=== PATIENT | male | born 1935 | race Caucasian/White ===

== ENCOUNTER 2017-01-11 16:03 | Inpatient (IN) | payer MEDICARE, OTHER ==
[~2017-01-11] VITALS: Ht 162.6 cm; Wt 62.0 kg
[~2017-01-11 16:03] MED LIST: CLOP75TA4 PO; ISOS60TA PO; LISI-313 PO; SIMV20TA2 PO
[2017-01-11 19:33] LABS: ADD SCAN DIFF NO
[2017-01-11 19:40] LABS: BASOPHIL # 0.1 10^3/ul (0.0-0.1); BASOPHILS % 0.6 % (0.0-2.0); EOSINOPHILS # 0.2 10^3/ul (0.0-0.5); HEMOGLOBIN 14.3 g/dl (14.0-18.0); LYMPHOCYTES # 2.2 10^3/ul (0.8-2.9); LYMPHOCYTES % 28.3 % (15.0-51.0); MEAN CORPUSCULAR HEMOGLOBIN 33.1 pg (29.0-33.0); MEAN CORPUSCULAR HGB CONC 33.3 g/dl (32.0-37.0); MEAN CORPUSCULAR VOLUME 99.5 fl (82.0-101.0); MEAN PLATELET VOLUME 10.4 fl (7.4-10.4); MONOCYTE # 0.6 10^3/ul (0.3-0.9); MONOCYTES % 7.2 % (0.0-11.0); NEUTROPHIL # 4.8 10^3/ul (1.6-7.5); NEUTROPHILS % 60.5 % (39.0-77.0); PLATELET COUNT 274 10^3/UL (140-415); RED BLOOD COUNT 4.32 10^6/ul (4.70-6.10); RED CELL DISTRIBUTION WIDTH 13.8 % (11.5-14.5); WHITE BLOOD COUNT 7.9 10^3/ul (4.8-10.8)
--- NOTE | 2017-01-11 19:41 | ERD ---
ER Documentation Chief Complaint Date/Time DATE: 01/11/17 TIME: 19:36 Chief Complaint BACK PAIN RAD LEGS X 1 WEEK HPI Patient is a 81-year-old male with a past medical history of abdominal aortic aneurysm, hypertension who presents to the ED with bilateral leg pain and lower back pain 1 week. Patient also has weakness in his legs. Patient states that he was sent here from his provider, Dr. Law. Patient is unsure of why he was sent to the ED. He denies fever or chills. He denies upper back pain denies chest pain or cough or shortness of breath. Denies headache or dizziness. Denies neck pain or neck stiffness. Denies leg pain or leg swelling. Denies syncopal episode. ROS All systems reviewed and are negative except as per history of present illness. Medications Home Meds Reported Medications Lisinopril* (Lisinopril*) 5 Mg Tablet, 5 MG PO DAILY, TAB 11/29/14 Simvastatin (Simvastatin) 20 Mg Tablet, 20 MG PO HS, TAB 11/29/14 Isosorbide Mononitrate* (Isosorbide Mononitrate*) 60 Mg Tab.er.24h, 60 MG PO DAILY, TAB 11/29/14 Clopidogrel Bisulfate* (Clopidogrel Bisulfate*) 75 Mg Tablet, 75 MG PO DAILY, TAB 11/29/14 Allergies Allergies: Coded Allergies: No Known Drug Allergy (Verified Allergy, Unknown, 11/29/14) PMhx/Soc History of Surgery: Yes (surgery on head, heart cath in past) Anesthesia Reaction: No Hx Neurological Disorder: No Hx Respiratory Disorders: No Hx Cardiac Disorders: No Hx Psychiatric Problems: No Hx Miscellaneous Medical Probl: No Hx Alcohol Use: No Hx Substance Use: No Hx Tobacco Use: Yes (1.5 packs per week) Smoking Status: Never smoker Physical Exam Vitals Vital Signs Date Time Temp Pulse Resp B/P Pulse Ox O2 Delivery O2 Flow Rate FiO2 01/11/17 16:12 98.1 68 18 140/64 99 Physical Exam GENERAL: Well-developed, well-nourished male. Appears in no acute distress. HEAD: Normocephalic, atraumatic. EYES: Pupils are equally reactive bilaterally. EOMs grossly intact. No conjunctival erythema. ENT: Moist mucous membranes. No uvula deviation. No kissing tonsils. No exudates. NECK: Supple. No lymphadenopathy or thyromegaly. No meningismus. negative kernig. negative brudinski. LUNG: Clear to auscultation bilaterally. No rhonchi, wheezing, rales or coarse breath sounds. HEART: Regular rate and rhythm. No murmurs, rubs or gallops. ABDOMEN: No scars, ecchymosis or rashes noted. Soft, nontender, and nondistended. Positive bowel sounds in all four quadrants. No rebound tenderness , no guarding. (-) McBurneys point tenderness. No CVA tenderness. BACK: No midline tenderness. Extremities: Equal pulses bilaterally. No peripheral clubbing, cyanosis or edema. No unilateral leg swelling. NEUROLOGIC: Alert and oriented. Moving all four extremities. 5/5 strength in all extremities. Normal speech. Steady gait. SKIN: Normal color. Warm and dry. No rashes or lesions. Capillary refill < 2 seconds Result Diagram: 01/11/171916 Results 24 hrs Laboratory Tests Test 01/11/17 19:17 White Blood Count 7.910^3/ul Red Blood Count 4.3210^6/ul Hemoglobin 14.3g/dl Hematocrit 43.0% Mean Corpuscular Volume 99.5fl Mean Corpuscular Hemoglobin 33.1pg Mean Corpuscular Hemoglobin Concent 33.3g/dl Red Cell Distribution Width 13.8% Platelet Count 09906^3/UL Mean Platelet Volume 10.4fl Neutrophils % 60.5% Lymphocytes % 28.3% Monocytes % 7.2% Eosinophils % 3.0% Basophils % 0.6% Nucleated Red Blood Cells % 0.0/100WBC Neutrophils # 4.810^3/ul Lymphocytes # 2.210^3/ul Monocytes # 0.610^3/ul Eosinophils # 0.210^3/ul Basophils # 0.110^3/ul Nucleated Red Blood Cells # 0.010^3/ul Procedures/MDM ER COURSE: I kept the patient and/or family informed of laboratory and diagnostic imaging results throughout the emergency room course. MEDICAL DECISION MAKING: This is a 81-year-old male with a past medical history of hypertension, abdominal aortic aneurysm who presents with back pain that radiates down his legs 1 week and weakness. Vital signs were reviewed. Patient is afebrile. Patient is not hypoxic. I consulted with Dr. Shepherd regarding this patient who advised me to contact Dr. Law. Dr. Law was called who stated to order a CT , blood work and an ultrasound to rule out aneurysm. All imaging studies were ordered and pending. I will be transferring patient to another provider who will continue following up with patient and evaluating laboratory studies and imaging studies as well as dictating the rest of the note. Patient was stable at transfer. Departure Diagnosis: Primary Impression: Back pain Back pain location: low back pain Chronicity: unspecified Back pain laterality: unspecified Sciatica presence: unspecified whether sciatica present Qualified Code: M54.5 - Low back pain, unspecified back pain laterality, unspecified chronicity, with sciatica presence unspecified Condition: Stable FILI HOYT PA-C January 11, 2017 19:41
--- NOTE | 2017-01-11 20:02 | RADRPT ---
PROCEDURE: CT abdomen and pelvis without IV contrast. CLINICAL INDICATION: Abdominal pain TECHNIQUE: CT scan of the abdomen and pelvis without contrast was performed on the Dexetra volumetric [address] scanner. The patient was scanned without intravenous contrast. Coronal and sagittal refo rmatted images were obtained from the axial source images. The CTDI vol is 7.4 mGy and the DLP is 45 0.98 mGy-cm. COMPARISON: 11/29/2014 FINDINGS: CT abdomen: The lung bases are clear. The heart size is not enlarged and is without pericardial thickening or e ffusion. The liver is normal in size and density and is without focal mass or intrahepatic biliary dilatation . Simple hepatic cysts are again seen. The spleen is normal in size and homogeneous in density. The stomach is grossly unremarkable. The pancreas as visualized is normal. The gallbladder and biliar y tree are unremarkable and there is no evidence for common bile duct dilatation. The adrenal gland s are symmetric and normal. The kidneys are symmetrically unremarkable as well. Bilateral renal cys ts are once again seen and are fairly stable in size. No renal calculus or obstructive uropathy or m ass lesion is seen. An abdominal aortic aneurysm is once again seen with an endovascular stent once again seen in place. The abdominal aortic aneurysm is juxtarenal/infrarenal in location and measures approximately 4.4 cm in maximal diameter. There is no retroperitoneal lymphadenopathy. The humera hepatis region is c lear. The large bowel is stool-filled. Sigmoid diverticulosis is seen without evidence of diverticu litis. The small and remainder of the large bowel and mesentery, as visualized, are otherwise unrema rkable. No inflammatory changes in the periappendiceal region is seen. CT pelvis: The pelvic organs are normal. The pelvic sidewalls and inguinal regions are clear. No pelvic mass, lymphadenopathy, or free fluid is seen. No acute inflammation is seen. The urinary bladder is wit hin normal limits. Degenerative spondylosis of the lumbar spine is seen. No osteolytic or osteoblastic lesion is detec baylee. Bilateral common iliac artery aneurysms are once again seen with endovascular stent once again seen in place. Embolization coils are seen once again. The right common iliac artery aneurysm feliciano ures approximately 7.3 cm in maximal diameter and the left common iliac artery aneurysm measures enriqueta roximately 6.5 cm in maximal diameter. Common iliac artery aneurysms of increase in size compared t o the prior examination. A bypass graft is seen between the bilateral common femoral arteries is se en which is new. IMPRESSION: 1. Increase in size of the aortic and bilateral common iliac artery aneurysms with endovascular allyson nt in place. 2. Stool filled large bowel with sigmoid diverticulosis again seen. RPTAT: HPNM Physician Hanna Date Time Electronically viewed and signed by Raza Cesar Physician on 01/11/2017 20:01 /
--- NOTE | 2017-01-11 20:10 | RADRPT ---
PROCEDURE: Abdominal aortic ultrasound CLINICAL INDICATION: Abdominal pain. History of aneurysm. TECHNIQUE: Multiple transverse and longitudinal zuniga scale and color Doppler images of the abdomin al aorta were obtained. COMPARISON: None FINDINGS: The proximal abdominal aorta is not well visualized secondary to overlying bowel gas. An endovascul ar stent in the abdominal aorta is seen. An abdominal aortic aneurysm is seen measuring 8.7 x 6.4 x 7.2 cm in size. The aneurysm sac extends into the right common iliac artery. IMPRESSION: Large abdominal aortic aneurysm as detailed above which extends into the right common iliac artery w ith an endovascular stent in place. Please refer to the CT of the abdomen and pelvis report from for further details. RPTAT: HPNM Physician Hanna Date Time Electronically viewed and signed by Physician Hanna on 01/11/2017 20:10 /
[2017-01-11 20:29] LABS: ALBUMIN/GLOBULIN RATIO 1.58
[2017-01-11] MEDS ORDERED: ACETAMINOPHEN 325 MG TAB PO PRN (20:30)
[2017-01-11] MEDS ORDERED: ONDANSETRON 4 MG INJ IV PRN (20:30)
[2017-01-11 20:31] LABS: ALBUMIN 4.9 g/dl (3.3-4.9); BILIRUBIN,INDIRECT 0.4 mg/dl (0-1.1); BILIRUBIN,TOTAL 0.4 mg/dl (0.2-1.3); CALCIUM 9.5 mg/dl (8.4-10.2); POTASSIUM 3.8 mmol/L (3.5-5.1)
[2017-01-11 21:14] VITALS: TEMP 98.8
[2017-01-11 22:40] VITALS: BP 155/76; PULSE 64; RESP 18; Ht 162.6 cm; Wt 62.0 kg
[2017-01-12] MEDS ORDERED: BISACODYL (EC) 5 MG TAB PO PRN (00:30)
[2017-01-12 04:57] LABS: ADD SCAN DIFF NO
[2017-01-12 05:03] LABS: BASOPHIL # 0.1 10^3/ul (0.0-0.1); BASOPHILS % 0.6 % (0.0-2.0); EOSINOPHILS # 0.3 10^3/ul (0.0-0.5); EOSINOPHILS % 3.4 % (0.0-7.0); HEMATOCRIT 40.3 % (42.0-52.0); HEMOGLOBIN 13.2 g/dl (14.0-18.0); LYMPHOCYTES # 2.3 10^3/ul (0.8-2.9); LYMPHOCYTES % 27.3 % (15.0-51.0); MEAN CORPUSCULAR HEMOGLOBIN 32.3 pg (29.0-33.0); MEAN CORPUSCULAR HGB CONC 32.8 g/dl (32.0-37.0); MEAN CORPUSCULAR VOLUME 98.5 fl (82.0-101.0); MEAN PLATELET VOLUME 10.7 fl (7.4-10.4); MONOCYTE # 0.6 10^3/ul (0.3-0.9); MONOCYTES % 7.2 % (0.0-11.0); NEUTROPHIL # 5.2 10^3/ul (1.6-7.5); NEUTROPHILS % 61.4 % (39.0-77.0); PLATELET COUNT 236 10^3/UL (140-415); RED BLOOD COUNT 4.09 10^6/ul (4.70-6.10); RED CELL DISTRIBUTION WIDTH 13.9 % (11.5-14.5); WHITE BLOOD COUNT 8.4 10^3/ul (4.8-10.8)
[2017-01-12] MEDS: PANTOPRAZOLE (EC) 40 MG TAB PO SCH (05:17)
--- NOTE | 2017-01-12 05:46 | RADRPT ---
PROCEDURE: CT Lumbar Spine. CLINICAL INDICATION: Low back pain. TECHNIQUE: The study was performed on a GE [address] scanner. Spiral axial images were obtained through the lumbar spine. Sagittal and coronal reformations were created from the ra w axial data. The images were reviewed on a PACS workstation. The CTDI vol is 10.51 mGy an the DLP i s 349.02 mGy-cm. COMPARISON: No prior studies are available for comparison. FINDINGS: Trace anterolisthesis at L4-5 is seen. The remainder of the lumbar lordosis is maintain. The verte bral body heights are normal. Multilevel endplate osteophytosis is seen. No acute fracture or sublu xation is seen. Diffuse osteopenia is seen. The paravertebral soft tissues are unremarkable. T12-L1: The disc, central canal, and neuroforamina are unremarkable. L1-L2: Mild disk height loss is seen with vacuum disk phenomena. Mild bulging of the posterior juliet shelby is seen. Mild bilateral facet arthropathy is seen. Borderline narrowing of the central canal i s seen. Mild bilateral foraminal stenosis is seen. L2-L3: Mild posterior disk height loss is seen. Mild posterior disk bulge is seen. Moderate bilate ral facet arthropathy is seen with ligamentum flavum thickening. Mild central canal stenosis is see n. Mild to moderate bilateral foraminal stenosis is seen. L3-L4: Severe disk height loss is seen. Mild to moderate bilateral facet arthropathy is seen. No s ignificant disk bulge or central canal or foraminal stenosis is seen. L4-L5: Severe bilateral facet arthropathy is seen. Ligamentum flavum thickening is seen with narrow ing of the lateral recesses. Borderline narrowing of the central canal is seen. Mild to moderate b ilateral foraminal stenosis is seen. L5-S1: Moderate disk height loss is seen. Posterior disk osteophyte complex is seen. Moderate bila teral facet arthropathy is seen. No significant central canal stenosis is seen. Moderate bilateral foraminal stenosis is seen. An aortic aneurysm is seen with an endovascular stent in place. In addition, aneurysmal dilatation of the bilateral common iliac arteries is seen with continuation of endovascular stent. The abdomina l aortic aneurysm measures approximately 4.4 cm in maximal diameter. The right common iliac artery aneurysm is incompletely visualized and measures approximately 7 cm in maximal diameter. The left c ommon iliac artery aneurysm is incompletely visualized and measures 6.9 cm in maximal diameter. IMPRESSION: 1. 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 2. Trace anterolisthesis at L4-5 which may be secondary to severe facet arthropathy. 3. Aortoiliac aneurysms with an endovascular stent in place as described above. RPTAT: HPNM Physician Hanna Date Time Electronically viewed and signed by Raza Cesar Physician on 01/11/2017 19:43 /
[2017-01-12 05:53] LABS: ALBUMIN 4.2 g/dl (3.3-4.9)
[2017-01-12 05:54] LABS: POTASSIUM 4.1 mmol/L (3.5-5.1)
[2017-01-12 05:56] LABS: ALBUMIN/GLOBULIN RATIO 1.61; BILIRUBIN,INDIRECT 0.4 mg/dl (0-1.1); BILIRUBIN,TOTAL 0.4 mg/dl (0.2-1.3); CREATININE 0.84 mg/dl (0.61-1.24); TOTAL PROTEIN 6.8 g/dl (6.1-8.1)
[2017-01-12 05:57] LABS: CALCIUM 8.7 mg/dl (8.4-10.2)
[2017-01-12 07:29] VITALS: BP 142/68; RESP 19
[2017-01-12] MEDS: NICOTINE (14 MG/24 HR) PATCH TRANSDERM SCH (09:22)
[2017-01-12] MEDS: morphine 2 MG INJ IV PRN ×2 (09:30→14:36)
[2017-01-12] MEDS: ASPIRIN (EC) 81 MG TAB PO SCH (14:33)
[2017-01-12] MEDS: CLOPIDOGREL 75 MG TAB PO SCH (14:33)
[2017-01-12] MEDS: LISINOPRIL 5 MG TAB PO SCH (14:33)
[2017-01-12] MEDS: ISOSORBIDE MONONITRATE(SR)60 MG TAB PO SCH (14:34)
[2017-01-12] MEDS: ACETAMINOPHEN 325 MG TAB PO PRN (16:54)
[2017-01-12] MEDS ORDERED: ONDANSETRON 4 MG INJ IV PRN (18:20)
[2017-01-12 19:39] VITALS: BP 152/72; RESP 19
--- NOTE | 2017-01-12 20:20 | QN ---
Documentation Comment A/P HB AAA S/P REPAIR HTN WEAKNESS DJD PLAN PER ORDER NARCISO REN MD January 12, 2017 20:20
[2017-01-12] MEDS: ATORVASTATIN 20 MG TAB PO SCH (20:36)
--- NOTE | 2017-01-12 22:26 | QN ---
Documentation Comment [id number] NARCISO REN MD January 12, 2017 22:25
--- NOTE | 2017-01-12 23:15 | HP ---
DATE OF ADMISSION: 01/11/2017 HISTORY OF PRESENT ILLNESS: Sarkis Iglesias is a 81-year-old male who has a history of CAD, history of coronary angiogram, PTCA and stent placement. The patient also has a history of abdominal aortic aneurysm repair, history of CAD, history of PTCA, history of stenting, history of hypertension, history of dyslipidemia. The patient also has history of fem-fem bypass as per old record. The patient has been complaining of back pain, also complaining of lower extremity weakness and pain and patient not able to ambulate properly. The patient also has history of peripheral vascular disease, history of scalp abscess and I and D in the past. The patient's blood pressure 152/72. The patient's hematocrit 40.3. Sodium 145, repeat one 144, and the patient had the ultrasound. Aortic ultrasound shows large abdominal aortic aneurysm. Proximal abdominal aorta is not well visualized secondary to overlying gas. Endovascular stent in the abdominal aorta seen. Abdominal aortic aneurysm is seen measuring 8.7 x _ x 7.2 cm in size, aneurysm extension to the right common iliac artery, large abdominal aortic aneurysm which extends into the right common iliac artery with endovascular stent in place. The patient also had abdominopelvic CT scan, shows increase in size of the aorta and the bilateral common iliac artery aneurysm with endovascular stent in place, stool- filled large bowel with sigmoid diverticulosis. The patient had lumbar spine x- ray, shows multilevel degenerative spondylosis of the lumbar spine, trace anterolisthesis at L4-L5 which may be secondary to severe facet arthropathy, aortoiliac aneurysm with an endovascular stent in place. The patient is being admitted for further management. PAST MEDICAL HISTORY: As mentioned above, CAD, PTCA, stenting, history of scalp abscess and I and D, history of abdominal aortic aneurysm, endovascular stent and repair and history of iliac artery aneurysm and repair in the past. ALLERGY HISTORY: NEGATIVE. FAMILY HISTORY: Negative. SOCIAL HISTORY: Negative. MEDICATION HISTORY: The patient's medication history listed as: 1. Plavix. 2. Isosorbide. 3. Lisinopril. 4. Simvastatin. Currently the patient is on: 1. Aspirin. 2. Lipitor. 3. Bisacodyl. 4. Plavix. 5. Isosorbide. 6. Lisinopril. REVIEW OF SYSTEMS: HEENT: Unremarkable. RESPIRATORY: Unremarkable. CARDIOVASCULAR: Unremarkable. ABDOMEN: Denies abdominal pain. EXTREMITIES: Complaining of back pain and lower extremity weakness. CENTRAL NERVOUS SYSTEM: Unremarkable. PHYSICAL EXAMINATION: GENERAL: The patient is awake and alert. VITAL SIGNS: Pulse of 55, blood pressure of 152/72. HEENT: Head is atraumatic, normocephalic. Pupils equal, reactive to light. NECK: Supple. No JVD. LUNGS: Clear. CARDIOVASCULAR: S1, S2 are normal. ABDOMEN: Soft, nontender. Bowel sounds present. No palpable mass. EXTREMITIES: No cyanosis, clubbing or edema. CENTRAL NERVOUS SYSTEM: The patient awake, alert. No focal deficit. VASCULAR: The patient's pulse in both lower extremities are palpable. IMPRESSION: 1. The patient has lower extremity weakness and back pain. 2. Rule out vascular insufficiency. 3. Hypertension. 4. History of coronary artery disease. 5. History of percutaneous transluminal coronary angioplasty with stent placement. 6. History of abdominal aortic aneurysm, endovascular stent. 7. 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 PLAN: Continue current treatment for now. Vascular surgical consultation will be obtained. Orders were done. The patient will have laboratory data followed very closely and pain medicine as needed. Dictated By: NARCISO DUNN/URI Conf#: [id number] DID#: [id number] MTDD
[2017-01-13] MEDS: PANTOPRAZOLE (EC) 40 MG TAB PO SCH (05:48)
[2017-01-13 06:21] LABS: ADD SCAN DIFF NO
[2017-01-13 06:24] LABS: BASOPHILS % 0.4 % (0.0-2.0); EOSINOPHILS # 0.2 10^3/ul (0.0-0.5); EOSINOPHILS % 1.8 % (0.0-7.0); HEMATOCRIT 40.5 % (42.0-52.0); HEMOGLOBIN 13.5 g/dl (14.0-18.0); LYMPHOCYTES # 2.1 10^3/ul (0.8-2.9); LYMPHOCYTES % 22.4 % (15.0-51.0); MEAN CORPUSCULAR HEMOGLOBIN 32.5 pg (29.0-33.0); MEAN CORPUSCULAR HGB CONC 33.3 g/dl (32.0-37.0); MEAN CORPUSCULAR VOLUME 97.4 fl (82.0-101.0); MEAN PLATELET VOLUME 10.6 fl (7.4-10.4); MONOCYTE # 0.7 10^3/ul (0.3-0.9); MONOCYTES % 7.4 % (0.0-11.0); NEUTROPHIL # 6.3 10^3/ul (1.6-7.5); NEUTROPHILS % 67.7 % (39.0-77.0); PLATELET COUNT 242 10^3/UL (140-415); RED BLOOD COUNT 4.16 10^6/ul (4.70-6.10); RED CELL DISTRIBUTION WIDTH 13.6 % (11.5-14.5); WHITE BLOOD COUNT 9.4 10^3/ul (4.8-10.8)
[2017-01-13 06:42] LABS: ALBUMIN 4.3 g/dl (3.3-4.9); ALBUMIN/GLOBULIN RATIO 1.72; BILIRUBIN,INDIRECT 0.7 mg/dl (0-1.1); BILIRUBIN,TOTAL 0.7 mg/dl (0.2-1.3); CALCIUM 8.8 mg/dl (8.4-10.2); CREATININE 0.77 mg/dl (0.61-1.24); POTASSIUM 3.9 mmol/L (3.5-5.1); TOTAL PROTEIN 6.8 g/dl (6.1-8.1)
[2017-01-13 07:50] VITALS: BP 141/69; RESP 18
[2017-01-13] MEDS ORDERED: LISINOPRIL 5 MG TAB PO SCH (09:00)
[2017-01-13] MEDS ORDERED: ISOSORBIDE MONONITRATE(SR)60 MG TAB PO SCH (09:00)
[2017-01-13] MEDS ORDERED: CLOPIDOGREL 75 MG TAB PO SCH (09:00)
[2017-01-13] MEDS: ASPIRIN (EC) 81 MG TAB PO SCH (09:12)
[2017-01-13] MEDS: CLOPIDOGREL 75 MG TAB PO SCH (09:12)
[2017-01-13] MEDS: ISOSORBIDE MONONITRATE(SR)60 MG TAB PO SCH (09:13)
[2017-01-13] MEDS: LISINOPRIL 5 MG TAB PO SCH (09:13)
[2017-01-13] MEDS: NICOTINE (14 MG/24 HR) PATCH TRANSDERM SCH (09:13)
[2017-01-13] MEDS ORDERED: BARIUM SULF 2% 450 ML BTL (BERRY SMOOTHIE) PO ONE (14:00)
--- NOTE | 2017-01-13 14:30 | CONS ---
DATE OF ADMISSION: 01/13/2017 DATE OF CONSULTATION: 01/13/2017 REASON FOR CONSULTATION: Abdominal aortic aneurysm. HISTORY OF PRESENT ILLNESS: This is a 81-year-old male with a history of coronary artery disease, s tatus post PTCA and stent. The patient does have a history of abdominal aortic aneurysm. Part of h is workup included a CAT scan of the abdomen and pelvis, which has shown an abdominal aortic aneurys m which is juxtarenal and infrarenal in location, measures about 4.4 cm in maximal diameter. The pa tient also had bilateral iliac artery aneurysms with an endovascular stent in place. Embolization c oils are also in place. The right common iliac artery aneurysm is 7.3, left one is 6.5 cm in diamet er, and the right common iliac artery aneurysm has increased in size. There is also bypass graft be tween the bilateral common femoral arteries. PAST MEDICAL HISTORY: Hypertension, hyperlipidemia. MEDICATIONS: 1. Simvastatin. 2. Lisinopril. 3. Isosorbide. 4. Plavix. 5. Lipitor. REVIEW OF SYSTEMS: No upper or lower GI bleeding, nausea, vomiting, constipation, diarrhea. No hem aturia or dysuria. No skin changes, rashes, moles. Positive for headaches. No weight loss, weight gain. No visual loss, hearing loss. PHYSICAL EXAMINATION: GENERAL: The patient is awake and alert. Granddaughter is at the bedside. VITAL SIGNS: Blood pressure is 141/69, pulse is 54, respirations 18, temperature is 97.6. The maykel ent is on room air saturation is 91% to 99%. HEENT: Normocephalic, atraumatic. PERRLA. NECK: Supple. No JVD, no carotid bruits. CARDIOVASCULAR: Regular rate and rhythm. Normal S1, S2. LUNGS: Clear. ABDOMEN: Soft. EXTREMITIES: Warm. No clubbing, cyanosis, or edema. Palpable femoral pulses. LABORATORY VALUES: Significant for a hemoglobin of 13.5, white count 9.4, platelet count 242, and a creatinine of 0.77. IMPRESSION: 1. Abdominal aortic aneurysm, status post endovascular graft. 2. Bilateral iliac artery aneurysms. RECOMMENDATIONS: CAT scan was done without IV contrast. We will proceed with a CAT scan with IV co ntrast to fully delineate the extent of the aneurysm and possibility of a leak. Discussed with Dr. Law. Dictated By: RAJINDER HOYT/URI Conf#: [id number] DID#: [id number]
[2017-01-13] MEDS ORDERED: SOD CHLORIDE 0.9% 100 ML ONE (15:03)
[2017-01-13] MEDS ORDERED: IODIXANOL LOCM 100 ML BTL ONE (15:03)
--- NOTE | 2017-01-13 15:48 | RADRPT ---
PROCEDURE: CT angiogram of the abdomen and pelvis with 3-D reconstructions CLINICAL INDICATION: AAA TECHNIQUE: CT angiogram of the abdomen and pelvis was performed on a multislice CT scanner . The patient was scanned after administration of intravenous contrast. Sagittal and coronal reformatted images were obtained from the axial source images. 3D MIP reformatted images were also created from the axial source images. DLP 472.17 mGycm CTDI vol 8.37 mGy COMPARISON: CT abdomen/pelvis from 01/11/2017 FINDINGS: ANGIOGRAM FINDINGS: There is no acute dissection of the abdominal aorta. 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 The SMA is widely patent. There is a replaced right hepatic artery off the SMA. There are single renal arteries bilaterally which are widely patent. The abdominal aorta is markedly tortuous. There is aneurysmal dilatation of the infrarenal aorta wh ich measures up to 4.2 cm in diameter with a center line measurement. An aortobi-iliac stent graft is noted with proximal fixation below the level of the renal arteries and distal fixation in the dis emerita right common iliac artery in the proximal left common iliac artery. A type 1 endoleak is noted w ith contrast opacification around the proximal aspect of the stent graft posteriorly. Large aneurysms spanning the length of bilateral common iliac arteries are noted measuring up to 7.2 cm on the right and 6.3 cm on the left. The right limb of the stent graft spans the right common i liac artery aneurysm. The left limb of the stent graft which terminates in the proximal left common iliac artery is occluded. A second stent is noted which begins within the aneurysm at the level of the mid left common iliac artery and extends to the distal left common iliac artery. It is also oc cluded. Coils are noted in bilateral internal iliac arteries which are occluded. There is no eviden ce of an endoleak in bilateral common iliac artery aneurysm sacs. The right external iliac artery and right common femoral artery are widely patent. The proximal rig ht superficial femoral and profunda arteries are widely patent. There is a fem-fem bypass graft whi ch is widely patent and reestablish as flow in the left common femoral artery. The proximal left beltran perficial femoral and profunda arteries are widely patent. ANCILLARY FINDINGS: There is partially visualized at least moderate cardiomegaly. There are hypoechoic and likely cystic lesions in the liver measuring up to 1.4 cm in the left lobe and 1.2 cm in the right lobe. There are simple bilateral renal cysts measuring up to 1.0 cm on the right and 1.9 cm on the left. There are scattered colonic diverticula without evidence of diverticulitis. The prostate is prominent, measuring up to 5.5 cm in diameter. IMPRESSION: 4.2 cm infrarenal aortic aneurysm status post aortobi-iliac stent graft repair with a type 1 endolea k noted superiorly. Large bilateral common iliac artery aneurysms are again noted measuring up to 7.2 cm on the right an d 6.3 cm on the left. The left distal limb of the stent graft in the proximal left common iliac art gianna is occluded and a second stent in the mid to distal left common iliac artery is also occluded. Patent fem-fem bypass graft which reestablishes flow in the left common femoral artery. 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 Prominent prostate measuring up to 5.5 cm in diameter. Correlation with a PSA level and digital rec emerita exam is recommended. RPTAT: EE Physician Farrukh Date Time Electronically viewed and signed by Physician Farrukh on 01/13/2017 15:48 /
--- NOTE | 2017-01-13 19:31 | PN ---
Date/Time of Note Date/Time of Note DATE: 01/13/17 TIME: 19:30 Assessment/Plan VTE Prophylaxis VTE Prophylaxis Intervention: other Lines/Catheters IV Catheter Type (from [facility]): Saline Lock Assessment/Plan Chief Complaint/Hosp Course IMPRESSION: 1. The patient has lower extremity weakness and back pain. 2. Rule out vascular insufficiency. 3. Hypertension. 4. History of coronary artery disease. 5. History of percutaneous transluminal coronary angioplasty with stent placement. 6. History of abdominal aortic aneurysm, endovascular stent. 7. 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 plan per surgery and dr martinez to see called Problems: Subjective 24 Hr Interval Summary Subjective hx not possible: pt critical (pain+), other (no cp) Cardiovascular: no complaints Gastrointestinal: no complaints Exam/Review of Systems Vital Signs Vitals Vital Signs Date Time Temp Pulse Resp B/P Pulse Ox O2 Delivery O2 Flow Rate FiO2 01/13/17 07:50 97.6 54 18 141/69 91 01/11/17 22:40 Room Air Intake and Output 01/12/17 01/12/17 01/13/17 15:00 23:00 07:00 Intake Total 800 ml 700 ml Balance 800 ml 700 ml Exam Neck: supple Respiratory: clear to auscultation Cardiovascular: regular rate and rhythm Gastrointestinal: soft Musculoskeletal: nl extremities to inspection Extremities: normal pulses Results Result Diagram: 01/13/17 0547 01/13/17 0547 Results 24 hrs Laboratory Tests Test 01/13/17 05:47 White Blood Count 9.4 Red Blood Count 4.16 L Hemoglobin 13.5 L Hematocrit 40.5 L Mean Corpuscular Volume 97.4 Mean Corpuscular Hemoglobin 32.5 Mean Corpuscular Hemoglobin Concent 33.3 Red Cell Distribution Width 13.6 Platelet Count 242 Mean Platelet Volume 10.6 H Neutrophils % 67.7 Lymphocytes % 22.4 Monocytes % 7.4 Eosinophils % 1.8 Basophils % 0.4 Nucleated Red Blood Cells % 0.0 Neutrophils # 6.3 Lymphocytes # 2.1 Monocytes # 0.7 Eosinophils # 0.2 Basophils # 0.0 Nucleated Red Blood Cells # 0.0 Sodium Level 140 Potassium Level 3.9 Chloride Level 110 Carbon Dioxide Level 28 Anion Gap 6 L Blood Urea Nitrogen 15 Creatinine 0.77 Glucose Level 92 Calcium Level 8.8 Total Bilirubin 0.7 Direct Bilirubin 0.00 Indirect Bilirubin 0.7 Aspartate Amino Transf (AST/SGOT) 26 Alanine Aminotransferase (ALT/SGPT) 27 Alkaline Phosphatase 89 Total Protein 6.8 Albumin 4.3 Globulin 2.50 Albumin/Globulin Ratio 1.72 Medications Medications Current Medications Pantoprazole (Protonix Tab) 40 mg DAILY@06 PO Last administered on 01/13/17 05: 48; Admin Dose 40 MG; Start 01/12/17 at 06:00 Bisacodyl (Dulcolax) 10 mg DAILY PRN PO CONSTIPATION; Start 01/12/17 at 00:30 Acetaminophen (Tylenol Tab) 650 mg Q6H PRN PO PAIN AND OR ELEVATED TEMP Last administered on 01/12/17 16:54; Admin Dose 650 MG; Start 01/12/17 at 00:30 Morphine Sulfate (morphine) 2 mg Q4H PRN IV PAIN 7-05/24 Last administered on 14:36; Admin Dose 2 MG; Start 01/12/17 at 00:30 Nicotine (Nicoderm 14 Mg/ 24hr) 1 patch DAILY TRANSDERM Last administered on 09:13; Admin Dose 1 PATCH; Start 01/12/17 at 09:00 Aspirin (Halfprin) 81 mg DAILY PO Last administered on 01/13/17 09:12; Admin Dose 81 MG; Start 01/12/17 at 14:00 Isosorbide Mononitrate (Imdur) 60 mg DAILY PO Last administered on 01/13/17 09: 13; Admin Dose 60 MG; Start 01/12/17 at 14:00 Clopidogrel Bisulfate (plaVIX) 75 mg DAILY PO Last administered on 01/13/17 09: 12; Admin Dose 75 MG; Start 01/12/17 at 14:00 Lisinopril (Zestril) 5 mg DAILY PO Last administered on 01/13/17 09:13; Admin Dose 5 MG; Start 01/12/17 at 14:00 Atorvastatin Calcium (Lipitor) 20 mg HS PO Last administered on 01/12/17 20:36 ; Admin Dose 20 MG; Start 01/12/17 at 21:00 Ondansetron HCl (Zofran Inj) 4 mg Q6H PRN IV NAUSEA AND/OR VOMITING Last administered on 01/12/17 18:29; Admin Dose 4 MG; Start 01/12/17 at 18:20 NARCISO REN MD Jan 13, 2017 19:31
[2017-01-13 19:38] VITALS: BP 133/70; RESP 20
[2017-01-13] MEDS: ACETAMINOPHEN 325 MG TAB PO PRN (21:20)
[2017-01-13] MEDS: ATORVASTATIN 20 MG TAB PO SCH (21:20)
[2017-01-14] MEDS: PANTOPRAZOLE (EC) 40 MG TAB PO SCH (05:29)
[2017-01-14] MEDS: LISINOPRIL 5 MG TAB PO SCH (08:44)
[2017-01-14] MEDS: NICOTINE (14 MG/24 HR) PATCH TRANSDERM SCH (08:44)
[2017-01-14] MEDS: ISOSORBIDE MONONITRATE(SR)60 MG TAB PO SCH (08:44)
[2017-01-14] MEDS: ASPIRIN (EC) 81 MG TAB PO SCH (08:44)
--- NOTE | 2017-01-14 14:06 | RADRPT ---
PROCEDURE: US Lower extremity arterial, bilateral CLINICAL INDICATION: Peripheral arterial disease, claudication TECHNIQUE: Multiple sonographic images of the bilateral lower extremity arteries was obtained util izing grayscale, color-flow and doppler imaging. The images were reviewed on a PACS workstation. COMPARISON: None. FINDINGS: The fem-fem bypass graft is widely patent and demonstrates triphasic waveforms with a peak systolic velocity of 138 cm/sec. The directional flows from the right common femoral artery to the left commo n femoral artery. Velocities and waveforms were obtained as described below. RIGHT LEG: Right external iliac artery: 84 cm/s; triphasic waveforms Right common femoral artery: 121 cm/s; triphasic waveforms Right profunda femoral artery: 66 cm/s; triphasic waveforms Right proximal superficial femoral artery: 68 cm/s; triphasic waveforms Right mid superficial femoral artery: 56 cm/s; triphasic waveforms Right distal superficial femoral artery: 90 cm/s; triphasic waveforms Right popliteal artery: 23 cm/s; triphasic waveforms Right posterior tibial artery: 34 cm/s; monophasic waveforms Right dorsalis pedis artery: 41 cm/s; triphasic waveforms Right GREGORY: 1.0 LEFT LEG: Left common femoral artery: 156 cm/s; triphasic waveforms Left profunda femoral artery: 42 cm/s; triphasic waveforms Left proximal superficial femoral artery: 81 cm/s; triphasic waveforms Left mid superficial femoral artery: 69 cm/s; triphasic waveforms Left distal superficial femoral artery: 140 cm/s; triphasic waveforms Left popliteal artery: 34 cm/s; triphasic waveforms Left posterior tibial artery: 20 cm/s; monophasic waveforms Left dorsalis pedis artery: 59 cm/s; triphasic waveforms Left GREGORY: 1.0 RPTAT: AA IMPRESSION: Widely patent fem-fem bypass graft. Multifocal mild stenoses in bilateral lower extremity arteries without evidence of occlusion or hemo dynamically significant stenosis. Physician Farrukh Date Time Electronically viewed and signed by Donald Da Silva Physician on 01/14/2017 14:06 /
--- NOTE | 2017-01-14 14:36 | PN ---
Date/Time of Note Date/Time of Note DATE: 01/14/17 TIME: 14:33 Assessment/Plan Lines/Catheters IV Catheter Type (from Nrsg): Saline Lock Assessment/Plan Chief Complaint/Hosp Course SP EVAR Type 1 Endo leak will asses the CTA for possible Endovascular repair of the leak discussed with Dr Law Problems: Subjective 24 Hr Interval Summary Constitutional: improved Pain Control: mild Exam/Review of Systems Vital Signs Vitals Vital Signs Date Time Temp Pulse Resp B/P Pulse Ox O2 Delivery O2 Flow Rate FiO2 01/13/17 19:38 98.6 65 20 133/70 100 01/11/17 22:40 Room Air Intake and Output 01/13/17 01/13/17 01/14/17 15:00 23:00 07:00 Intake Total 800 ml 350 ml Output Total 1200 ml 700 ml Balance -400 ml -350 ml Exam Neck: non-tender, supple Respiratory: clear to auscultation, normal air movement Cardiovascular: nl pulses, regular rate and rhythm Gastrointestinal: nl liver, spleen, non-tender, soft Results Result Diagram: 01/13/17 0547 01/13/17 0547 RAIJNDER ADAMS MD Jan 14, 2017 14:36
--- NOTE | 2017-01-14 15:37 | CONS ---
DATE OF ADMISSION: 01/13/2017 DATE OF CONSULTATION: 01/14/2017 REASON FOR CONSULTATION: Preoperative evaluation in a patient with a history of percutaneous transl uminal coronary angioplasty and stent placement who may need repair of endovascular graft. REQUESTING PHYSICIAN: Dr. Fei Ren HISTORY OF PRESENT ILLNESS: Mr. Iglesias is a 81-year-old male with a history of coronary artery dise ase, status post prior PTCA and stent placement, abdominal aortic aneurysm, status post endovascular repair, iliac artery aneurysm, status post repair, who presents with complaints of back pain. Init ially upon arrival temperature was 98.1, blood pressure 140/64, pulse 68, respirations 18, saturatin g 99%. The patient's labs showed a white count of 7.9, hemoglobin 14.3, platelet count of 274. Sod ium 145, potassium 3.8, creatinine 1.0, BUN 17, AST 28, ALT 26. The patient underwent abdominal aor tic ultrasound, revealing a large abdominal aortic aneurysm, as described above, with extension into the right common iliac artery with endovascular stent in place. Patient then additionally underwen t abdominopelvic CT, revealing increase in size of the aortic and bilateral common iliac artery aneu rysm, with endovascular stent placed; stool filled large bowel with sigmoid diverticulitis again see n. A lumbar spine CT, revealing multilevel degenerative spondylosis and additionally a followup ab dominal CT with contrast revealing a 4.2-cm infrarenal aortic aneurysm status post aortobiiliac sten t graft repair with a type 1 endoleak noted superiorly, large bilateral common iliac artery aneurysm s measuring up to 7.2 cm on the right and 6.3 on of the left, and left distal limb with the stent gr aft to the proximal left common iliac artery occluded and a second stent in the mid to distal left c ommon iliac artery is also occluded, with a patent fem-fem bypass graft with flow in the left common femoral artery. The patient has been admitted to the floor and since admit to the floor amilcar es chest pain or shortness of breath. PAST MEDICAL HISTORY: As above in the HPI. MEDICATIONS CURRENTLY IN HOSPITAL: 1. Lipitor 20 mg at bedtime. 2. Aspirin 81 mg daily. 3. Imdur 60 mg daily. 4. Lisinopril 5 mg daily. 5. Protonix 40 mg daily. 6. Dulcolax p.r.n. 7. Tylenol p.r.n. 8. Morphine p.r.n. ALLERGIES: NO KNOWN DRUG ALLERGIES. SOCIAL HISTORY: No tobacco, ETOH or illicit drug use. FAMILY HISTORY: No history of sudden cardiac or early CAD. REVIEW OF SYSTEMS: As above in the HPI. CONSTITUTIONAL: No fevers or chills. PULMONARY: No current shortness of breath. CARDIOVASCULAR: No current chest pain. GASTROINTESTINAL: No vomiting. GENITOURINARY: No hematuria. MUSCULOSKELETAL: Degenerative joint disease. PSYCHIATRIC: The patient denies depression. NEUROLOGIC: No documented history of CVA. ENDOCRINE: No documented history of diabetes mellitus. PHYSICAL EXAMINATION: VITAL SIGNS: Temperature of 98.6, blood pressure 132/70, pulse 65, respiratory rate 20, saturating 100%. GENERAL: The patient is alert, awake, in no acute distress. NECK: JVP approximately 8-9 cm of water. CHEST: Fair air movement throughout. HEART: Regular rate and rhythm. Normal S1, S2. A I/ systolic murmur, nondisplaced PMI. ABDOMEN: Positive bowel sounds. Soft. EXTREMITIES: No pitting edema, 1+ pulses bilaterally, posterior tibial. LABORATORIES: As above in the HPI, with most recently from the 1st: Sodium 140, potassium 3.9, crea tinine 0.7, BUN 15. White cells 9.4, hemoglobin 16.5, platelet count of 242. IMAGING STUDIES: As above in the HPI with additionally the patient having a lower extremity arteria l ultrasound revealing widely patent fem-fem bypass graft, multifocal mid stenosis of the bilateral lower extremities, without evidence of occlusion or hemodynamically significant stenoses. ECG: No electrocardiograms for my review at this time. IMPRESSION: 1. Preoperative evaluation in a patient with a history of percutaneous transluminal coronary angiop lasty and stent placement prior to possible repair of endovascular leak from an endovascular aortic graft. 2. History of percutaneous transluminal coronary angioplasty and stent placement. 3. Hypertension. Under reasonable control. 4. Bradycardia, borderline. 5. History of abdominal aortic aneurysm, status post endovascular repair, with possible endoleak ty pe 1. 6. Dyslipidemia. 7. Possible angina by medications. 8. Ongoing tobacco usage. RECOMMENDATIONS: 1. At this time would check troponins q.6 x3 to ensure that the patient has not had any recent acut e coronary symptoms in anticipation of possible surgery. 2. Would initiate the patient on low-dose beta micaela as tolerated, only following hold parameters closely, given the patient's abdominal aortic aneurysm, possible leak, and also increase in the siz e of baseline aneurysms in the iliac and aorta distribution. 3. Continue the patient's aspirin for prophylaxis against cardiovascular events. 4. Continue the patient's current statin and adjust it according to a fasting lipid panel I will al so check. 5. Continue the patient's current Imdur for antianginal effect. 6. Continue the patient's Zestril addition for blood pressure control. 7. Continue smoking cessation with nicotine. 8. Check a 2D echo to further assess the patient's ejection fraction and will consider stress testi ng if necessary prior to surgery. 9. Ongoing vascular surgery evaluation. Thank you for allowing me to take part in the care of this patient. I will continue to follow very closely with you, with further recommendations to be made as the patient progresses through his [facility] clinical course. Dictated By: ANTONIO ALAS/URI Conf#: [id number] DID#: [id number] CC: FEI REN MD; RAJINDER ADAMS MD;*End*
--- NOTE | 2017-01-14 15:53 | PN ---
Date/Time of Note Date/Time of Note DATE: 01/14/17 TIME: 15:52 Assessment/Plan VTE Prophylaxis VTE Prophylaxis Intervention: anti-embolic stocking Lines/Catheters IV Catheter Type (from Nrsg): Saline Lock Assessment/Plan Chief Complaint/Hosp Course 1. The patient has lower extremity weakness and back pain. 2. Rule out vascular insufficiency. 3. Hypertension. 4. History of coronary artery disease. 5. History of percutaneous transluminal coronary angioplasty with stent placement. 6. History of abdominal aortic aneurysm, endovascular stent. 7. 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 Problems: Assessment/Plan 1. Kidney function optimization Subjective 24 Hr Interval Summary Constitutional: improved, no complaints Exam/Review of Systems Vital Signs Vitals Vital Signs Date Time Temp Pulse Resp B/P Pulse Ox O2 Delivery O2 Flow Rate FiO2 01/13/17 19:38 98.6 65 20 133/70 100 01/11/17 22:40 Room Air Intake and Output 01/13/17 01/13/17 01/14/17 15:00 23:00 07:00 Intake Total 800 ml 350 ml Output Total 1200 ml 700 ml Balance -400 ml -350 ml Exam Constitutional: alert Eyes: nl conjunctiva Respiratory: clear to auscultation Cardiovascular: regular rate and rhythm Results Result Diagram: 01/13/17 0547 01/13/17 0547 Medications Medications Current Medications Pantoprazole (Protonix Tab) 40 mg DAILY@06 PO Last administered on 01/14/17 05: 29; Admin Dose 40 MG; Start 01/12/17 at 06:00 Bisacodyl (Dulcolax) 10 mg DAILY PRN PO CONSTIPATION; Start 01/12/17 at 00:30 Acetaminophen (Tylenol Tab) 650 mg Q6H PRN PO PAIN AND OR ELEVATED TEMP Last administered on 01/13/17 21:20; Admin Dose 650 MG; Start 01/12/17 at 00:30 Morphine Sulfate (morphine) 2 mg Q4H PRN IV PAIN -05/24 Last administered on 14:36; Admin Dose 2 MG; Start 01/12/17 at 00:30 Nicotine (Nicoderm 14 Mg/ 24hr) 1 patch DAILY TRANSDERM Last administered on 08:44; Admin Dose 1 PATCH; Start 5/31/17 at 09:00 Aspirin (Halfprin) 81 mg DAILY PO Last administered on 01/14/17 08:44; Admin Dose 81 MG; Start 01/12/17 at 14:00 Isosorbide Mononitrate (Imdur) 60 mg DAILY PO Last administered on 01/14/17 08: 44; Admin Dose 60 MG; Start 01/12/17 at 14:00 Clopidogrel Bisulfate (plaVIX) 75 mg DAILY PO Last administered on 01/13/17 09: 12; Admin Dose 75 MG; Start 01/12/17 at 14:00; Status Future Hold Lisinopril (Zestril) 5 mg DAILY PO Last administered on 01/14/17 08:44; Admin Dose 5 MG; Start 01/12/17 at 14:00 Atorvastatin Calcium (Lipitor) 20 mg HS PO Last administered on 01/13/17 21:20 ; Admin Dose 20 MG; Start 01/12/17 at 21:00 Ondansetron HCl (Zofran Inj) 4 mg Q6H PRN IV NAUSEA AND/OR VOMITING Last administered on 01/12/17 18:29; Admin Dose 4 MG; Start 01/12/17 at 18:20 Metoprolol Tartrate (Lopressor) 12.5 mg BID PO ; Start 01/14/17 at 21:00 LUCHO LYNN Jan 14, 2017 15:53
--- NOTE | 2017-01-14 17:11 | RADRPT ---
Echocardiogram Report Patient Name: MARJ OROZCO Gender: Male Date: 1935 Study Date: 14-Jan-2017 Can Technician: TN Location: I Ref. Physician: ANTONIO SOUTH Quality: Good Procedures: Transthoracic echocardiogram with complete 2D, M-Mode, and doppler examination. Indications: Pre-op. 2D/M Mode Doppler Measurement Value Normal Ranges Measurement Value Normal Ranges LVIDd 2D 5.4 3.5 - 5.6 cm ILAN Vmax 2.9 cm2 LVIDs 2D 3.2 2.1 - 4.1 cm ILAN VTI 2.9 cm2 LVPWd 2D 1.2 0.6 - 1.1 cm AV Peak Yoshi 1.4 m/sec IVSd 2D 1.2 0.6 - 1.1 cm AV Peak PG 7.6 mmHg AoR Diam 2D 3.0 2.0 - 3.7 cm AI Peak PG 97.9 mmHg EDV 2D 140.0 cm3 AI Peak Yoshi 4.9 m/sec ESV 2D 32.4 cm3 AI PHT 530.9 msec LA Dimen 2D 3.8 2.3 - 4.0 cm LVOT Peak Yoshi 0.9 m/sec LVOT Diam 2.4 cm LVOT Peak PG 3.3 mmHg MV E Peak Yoshi 0.4 m/sec MV A Peak Yoshi 1.2 m/sec MV E/A 0.4 MV Decel Time 250 msec MV Decel [place] 2 MV E/A 0.4 TR Peak Yoshi 2.6 m/sec TR Peak PG 28.6 mmHg RVSP 31.6 mmHg Findings Left Ventricle: Mild concentric left ventricular hypertrophy. Moderate left ventricular systolic dysfunction. Ejection fraction is visually estimated at 3540 %. Abnormal Diastolic Function. These segments of the LV are hypokinetic apical septum, anteroseptum mid segment, inferior mid segment and inferior base segment. Right Ventricle: Normal right ventricular size. Normal right ventricular systolic function. Left Atrium: The left atrium is normal in size. LA Dimension3.80 cm. Right Atrium: The right atrium is normal in size. Mitral Valve: Mild mitral annular calcification. Moderate mitral valve regurgitation. Aortic Valve: No significant aortic stenosis or insufficiency. Aortic cusps appear mildly calcified. Mild aortic valve regurgitation. Tricuspid Valve: Estimated peak PA systolic pressure 34 mmHg. There is trace to mild tricuspid regurgitation. Pulmonic Valve: Normal pulmonic valve appearance. Pericardium: Normal pericardium with no significant pericardial effusion. Aorta: There is mild aortic root calcification. IVC: Normal size and normal respiratory collapse consistent with normal right atrial pressure. Pulmonary Artery: Normal pulmonary artery size. Conclusions 1.Mild concentric left ventricular hypertrophy. Moderate left ventricular systolic dysfunction. Ejection fraction is visually estimated at 35-40 %. Abnormal Diastolic Function. These segments of the LV are hypokinetic apical septum., anteroseptum mid segment, inferior mid segment and inferior base segment. 2.Mild mitral annular calcification. Moderate mitral valve regurgitation. 3.No significant aortic stenosis or insufficiency. Aortic cusps appear mildly calcified. Mild aortic valve regurgitation. 4.Estimated peak PA systolic pressure 34 mmHg. There is trace to mild tricuspid regurgitation. Electronically Signed By: Antonio South 14-Jan-2017 17:11:07 -0700 Patient Name: MARJ OROZCO Study Date: 14-Jan-2017 [id number]
[2017-01-14] MEDS: ACETAMINOPHEN 325 MG TAB PO PRN (17:13)
[2017-01-14 20:33] VITALS: BP 130/67; RESP 19
[2017-01-14] MEDS: ATORVASTATIN 20 MG TAB PO SCH (20:49)
[2017-01-14] MEDS: METOPROLOL 25 MG TAB PO SCH (20:49)
[2017-01-15 05:16] LABS: ADD SCAN DIFF NO
[2017-01-15 05:19] LABS: BASOPHIL # 0.1 10^3/ul (0.0-0.1); BASOPHILS % 0.6 % (0.0-2.0); EOSINOPHILS # 0.3 10^3/ul (0.0-0.5); EOSINOPHILS % 2.9 % (0.0-7.0); HEMATOCRIT 39.2 % (42.0-52.0); HEMOGLOBIN 13.2 g/dl (14.0-18.0); LYMPHOCYTES # 2.1 10^3/ul (0.8-2.9); MEAN CORPUSCULAR HEMOGLOBIN 32.7 pg (29.0-33.0); MEAN CORPUSCULAR HGB CONC 33.7 g/dl (32.0-37.0); MEAN PLATELET VOLUME 10.7 fl (7.4-10.4); MONOCYTE # 0.7 10^3/ul (0.3-0.9); MONOCYTES % 7.7 % (0.0-11.0); NEUTROPHIL # 5.6 10^3/ul (1.6-7.5); NEUTROPHILS % 64.6 % (39.0-77.0); PLATELET COUNT 270 10^3/UL (140-415); RED BLOOD COUNT 4.04 10^6/ul (4.70-6.10); RED CELL DISTRIBUTION WIDTH 13.2 % (11.5-14.5); WHITE BLOOD COUNT 8.7 10^3/ul (4.8-10.8)
[2017-01-15 05:38] LABS: CALCIUM 8.6 mg/dl (8.4-10.2); CREATININE 0.77 mg/dl (0.61-1.24); POTASSIUM 3.8 mmol/L (3.5-5.1)
[2017-01-15 05:44] LABS: CHOL/HDL RATIO 3.8 RATIO
[2017-01-15] MEDS: PANTOPRAZOLE (EC) 40 MG TAB PO SCH (06:23)
[2017-01-15 08:28] VITALS: BP 143/70; RESP 20
[2017-01-15] MEDS: NICOTINE (14 MG/24 HR) PATCH TRANSDERM SCH (09:33)
[2017-01-15] MEDS: ISOSORBIDE MONONITRATE(SR)60 MG TAB PO SCH (09:33)
[2017-01-15] MEDS: ASPIRIN (EC) 81 MG TAB PO SCH (09:33)
[2017-01-15] MEDS: LISINOPRIL 5 MG TAB PO SCH (09:34)
[2017-01-15] MEDS: METOPROLOL 25 MG TAB PO SCH ×2 (09:36→21:16)
--- NOTE | 2017-01-15 10:59 | CONS ---
Date/Time of Note Date/Time of Note DATE: 01/15/17 TIME: 10:58 Assessment/Plan Assessment/Plan Additional Assessment/Plan 1. Preoperative evaluation in a patient with a history of percutaneous transluminal coronary angioplasty and stent placement prior to possible repair of endovascular leak from an endovascular aortic graft- surgery planned for Tuesday. 2. History of percutaneous transluminal coronary angioplasty and stent placement- no CP now. 3. Hypertension. Under reasonable control - con't to monitor. 4. Bradycardia, borderline- no indicataion for pacer 5. History of abdominal aortic aneurysm, status post endovascular repair, with possible endoleak type 1. 6. Dyslipidemia. 7. Possible angina by medications - now stable. 8. Ongoing tobacco usage Consultation Date/Type/Reason Admit Date/Time Jan 13, 2017 at 09:00 Initial Consult Date 24 HR Interval Summary Free Text/Dictation NO acute change - not on tele - surgery planned Tuesday. ROS: No fever, no chills, no nausea, no vomiting, no diarrhea/constipation No recent weight changes No chest pain, no PND, no orthopnea No dizziness, blurred vision No thirst, no heat or cold intolerance Exam/Review of Systems Vital Signs Vitals Vital Signs Date Time Temp Pulse Resp B/P Pulse Ox O2 Delivery O2 Flow Rate FiO2 01/15/17 08:28 98.1 59 20 143/70 94 01/11/17 22:40 Room Air Intake and Output 01/14/17 01/14/17 01/15/17 15:00 23:00 07:00 Intake Total 960 ml 300 ml Output Total 900 ml 700 ml Balance 60 ml -400 ml Exam General: WN/WD/NAD, AOx 3 HEENT: Unicetric/atraumatic/EOMI (follow commands) NECK: JVD elevated, no thyromegaly Lymph: no lymphadenopathy HEART: regular with no S3, II/ systolic murmur at apex LUNGS: Coarse sounds ABD: soft, NT, ND, +BS : Intact Neuro: non focal SKIN: chronic changes EXT: trace edema Results Result Diagram: 01/15/17 0430 01/15/17 0430 Results 24 hrs Laboratory Tests Test 01/14/17 18:30 01/15/17 00:35 01/15/17 04:30 Troponin I < 0.012 < 0.012 < 0.012 White Blood Count 8.7 Red Blood Count 4.04 L Hemoglobin 13.2 L Hematocrit 39.2 L Mean Corpuscular Volume 97.0 Mean Corpuscular Hemoglobin 32.7 Mean Corpuscular Hemoglobin Concent 33.7 Red Cell Distribution Width 13.2 Platelet Count 270 Mean Platelet Volume 10.7 H Neutrophils % 64.6 Lymphocytes % 24.0 Monocytes % 7.7 Eosinophils % 2.9 Basophils % 0.6 Nucleated Red Blood Cells % 0.0 Neutrophils # 5.6 Lymphocytes # 2.1 Monocytes # 0.7 Eosinophils # 0.3 Basophils # 0.1 Nucleated Red Blood Cells # 0.0 Sodium Level 142 Potassium Level 3.8 Chloride Level 106 Carbon Dioxide Level 28 Anion Gap 12 Blood Urea Nitrogen 11 Creatinine 0.77 Glucose Level 87 Calcium Level 8.6 Triglycerides Level 85 Cholesterol Level 148 LDL Cholesterol, Calculated 93 HDL Cholesterol 38 Cholesterol/HDL Ratio 3.8 Medications Medications Current Medications Pantoprazole (Protonix Tab) 40 mg DAILY@06 PO Last administered on 01/15/17 06: 23; Admin Dose 40 MG; Start 01/12/17 at 06:00 Bisacodyl (Dulcolax) 10 mg DAILY PRN PO CONSTIPATION; Start 01/12/17 at 00:30 Acetaminophen (Tylenol Tab) 650 mg Q6H PRN PO PAIN AND OR ELEVATED TEMP Last administered on 01/14/17 17:13; Admin Dose 650 MG; Start 01/12/17 at 00:30 Morphine Sulfate (morphine) 2 mg Q4H PRN IV PAIN 7-10 Last administered on 14:36; Admin Dose 2 MG; Start 01/12/17 at 00:30 Nicotine (Nicoderm 14 Mg/ 24hr) 1 patch DAILY TRANSDERM Last administered on 09:33; Admin Dose 1 PATCH; Start 01/12/17 at 09:00 Aspirin (Halfprin) 81 mg DAILY PO Last administered on 01/15/17 09:33; Admin Dose 81 MG; Start 01/12/17 at 14:00 Isosorbide Mononitrate (Imdur) 60 mg DAILY PO Last administered on 01/15/17 09: 33; Admin Dose 60 MG; Start 01/12/17 at 14:00 Clopidogrel Bisulfate (plaVIX) 75 mg DAILY PO Last administered on 01/13/17 09: 12; Admin Dose 75 MG; Start 01/12/17 at 14:00; Status Future Hold Lisinopril (Zestril) 5 mg DAILY PO Last administered on 01/15/17 09:34; Admin Dose 5 MG; Start 01/12/17 at 14:00 Atorvastatin Calcium (Lipitor) 20 mg HS PO Last administered on 01/14/17 20:49 ; Admin Dose 20 MG; Start 01/12/17 at 21:00 Ondansetron HCl (Zofran Inj) 4 mg Q6H PRN IV NAUSEA AND/OR VOMITING Last administered on 01/12/17 18:29; Admin Dose 4 MG; Start 01/12/17 at 18:20 Metoprolol Tartrate (Lopressor) 12.5 mg BID PO Last administered on 01/15/17 09 :36; Admin Dose 12.5 MG; Start 01/14/17 at 21:00 SIN SERRANO MD Jan 15, 2017 10:59
--- NOTE | 2017-01-15 15:14 | PN ---
Date/Time of Note Date/Time of Note DATE: 01/15/17 TIME: 15:13 Assessment/Plan VTE Prophylaxis VTE Prophylaxis Intervention: SCD's Lines/Catheters IV [facility]from [facility]): Saline Lock Assessment/Plan Chief Complaint/Hosp Course 1. The patient has lower extremity weakness and back pain. 2. Rule out vascular insufficiency. 3. Hypertension. 4. History of coronary artery disease. 5. History of percutaneous transluminal coronary angioplasty with stent placement. 6. History of abdominal aortic aneurysm, endovascular stent. 7. 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 Problems: Assessment/Plan 1. Continue telemonitoring 2. Repair of endovascular leak Subjective 24 Hr Interval Summary Constitutional: no complaints Exam/Review of Systems Vital Signs Vitals Vital Signs Date Time Temp Pulse Resp B/P Pulse Ox O2 Delivery O2 Flow Rate FiO2 01/15/17 08:28 98.1 59 20 143/70 94 01/11/17 22:40 Room Air Intake and Output 01/14/17 01/14/17 01/15/17 15:00 23:00 07:00 Intake Total 960 ml 300 ml Output Total 900 ml 700 ml Balance 60 ml -400 ml Exam Psych: no complaints Head: normocephalic Neck: supple Respiratory: diminished breath sounds Cardiovascular: diastolic murmur Gastrointestinal: soft Results Result Diagram: 01/15/17 0430 01/15/17 0430 Results 24 hrs Laboratory Tests Test 01/14/17 18:30 01/15/17 00:35 01/15/17 04:30 Troponin I < 0.012 < 0.012 < 0.012 White Blood Count 8.7 Red Blood Count 4.04 L Hemoglobin 13.2 L Hematocrit 39.2 L Mean Corpuscular Volume 97.0 Mean Corpuscular Hemoglobin 32.7 Mean Corpuscular Hemoglobin Concent 33.7 Red Cell Distribution Width 13.2 Platelet Count 270 Mean Platelet Volume 10.7 H Neutrophils % 64.6 Lymphocytes % 24.0 Monocytes % 7.7 Eosinophils % 2.9 Basophils % 0.6 Nucleated Red Blood Cells % 0.0 Neutrophils # 5.6 Lymphocytes # 2.1 Monocytes # 0.7 Eosinophils # 0.3 Basophils # 0.1 Nucleated Red Blood Cells # 0.0 Sodium Level 142 Potassium Level 3.8 Chloride Level 106 Carbon Dioxide Level 28 Anion Gap 12 Blood Urea Nitrogen 11 Creatinine 0.77 Glucose Level 87 Calcium Level 8.6 Triglycerides Level 85 Cholesterol Level 148 LDL Cholesterol, Calculated 93 HDL Cholesterol 38 Cholesterol/HDL Ratio 3.8 Medications Medications Current Medications Pantoprazole (Protonix Tab) 40 mg DAILY@06 PO Last administered on 01/15/17 06: 23; Admin Dose 40 MG; Start 01/12/17 at 06:00 Bisacodyl (Dulcolax) 10 mg DAILY PRN PO CONSTIPATION; Start 01/12/17 at 00:30 Acetaminophen (Tylenol Tab) 650 mg Q6H PRN PO PAIN AND OR ELEVATED TEMP Last administered on 01/14/17 17:13; Admin Dose 650 MG; Start 01/12/17 at 00:30 Morphine Sulfate (morphine) 2 mg Q4H PRN IV PAIN -05/24 Last administered on 14:36; Admin Dose 2 MG; Start 01/12/17 at 00:30 Nicotine (Nicoderm 14 Mg/ 24hr) 1 patch DAILY TRANSDERM Last administered on 09:33; Admin Dose 1 PATCH; Start 01/12/17 at 09:00 Aspirin (Halfprin) 81 mg DAILY PO Last administered on 01/15/17 09:33; Admin Dose 81 MG; Start 01/12/17 at 14:00 Isosorbide Mononitrate (Imdur) 60 mg DAILY PO Last administered on 01/15/17 09: 33; Admin Dose 60 MG; Start 01/12/17 at 14:00 Clopidogrel Bisulfate (plaVIX) 75 mg DAILY PO Last administered on 01/13/17 09: 12; Admin Dose 75 MG; Start 01/12/17 at 14:00; Status Future Hold Lisinopril (Zestril) 5 mg DAILY PO Last administered on 01/15/17 09:34; Admin Dose 5 MG; Start 01/12/17 at 14:00 Atorvastatin Calcium (Lipitor) 20 mg HS PO Last administered on 01/14/17 20:49 ; Admin Dose 20 MG; Start 01/12/17 at 21:00 Ondansetron HCl (Zofran Inj) 4 mg Q6H PRN IV NAUSEA AND/OR VOMITING Last administered on 01/12/17 18:29; Admin Dose 4 MG; Start 01/12/17 at 18:20 Metoprolol Tartrate (Lopressor) 12.5 mg BID PO Last administered on 01/15/17t 09 :36; Admin Dose 12.5 MG; Start 01/14/17 at 21:00 LUCHO LYNN Jan 15, 2017 15:14
--- NOTE | 2017-01-15 15:18 | PN ---
Date/Time of Note Date/Time of Note DATE: 01/15/17 TIME: 15:17 Assessment/Plan Lines/Catheters IV Catheter Type (from Nrsg): Saline Lock Assessment/Plan Chief Complaint/Hosp Course SP EVAR Type 1 Endo leak will asses the CTA for possible Endovascular repair of the leak will need repair if Type 1 EVAR endo leak cardiology clearance in process Problems: Subjective 24 Hr Interval Summary Constitutional: improved Pain Control: mild Exam/Review of Systems Vital Signs Vitals Vital Signs Date Time Temp Pulse Resp B/P Pulse Ox O2 Delivery O2 Flow Rate FiO2 01/15/17 08:28 98.1 59 20 143/70 94 01/11/17 22:40 Room Air Intake and Output 01/14/17 01/14/17 01/15/17 15:00 23:00 07:00 Intake Total 960 ml 300 ml Output Total 900 ml 700 ml Balance 60 ml -400 ml Exam ENMT: mucosa pink and moist, nl external ears & nose, nl lips & teeth, nl nasal mucosa & septum Neck: non-tender, supple Respiratory: clear to auscultation, normal air movement Cardiovascular: nl pulses, regular rate and rhythm Gastrointestinal: nl liver, spleen, non-tender, soft Results Result Diagram: 01/15/1742901/15/17429 RAJINDER ADAMS MD Jan 15, 2017 15:18
[2017-01-15 20:30] VITALS: BP 136/74; RESP 19
[2017-01-15] MEDS: ATORVASTATIN 20 MG TAB PO SCH (21:15)
[2017-01-16] MEDS: PANTOPRAZOLE (EC) 40 MG TAB PO SCH (06:32)
[2017-01-16 08:01] VITALS: BP 139/68; RESP 18
--- NOTE | 2017-01-16 08:55 | RADRPT ---
Vent Rate: 51 bpm RR Interval: 0 msec NE Interval: 134 msec QRS Duration: 126 msec QT Interval: 472 msec QTC Interval: 435 msec P-R-T [place]: 46 - -65 - -34 degrees Sinus bradycardia Left axis deviation Nonspecific intraventricular block T wave abnormality, consider inferolateral ischemia Abnormal ECG Electronically Signed By: Niranjan Gardiner [id number]
[2017-01-16] MEDS: ISOSORBIDE MONONITRATE(SR)60 MG TAB PO SCH (09:07)
[2017-01-16] MEDS: ASPIRIN (EC) 81 MG TAB PO SCH (09:08)
[2017-01-16] MEDS: LISINOPRIL 5 MG TAB PO SCH (09:08)
[2017-01-16] MEDS: METOPROLOL 25 MG TAB PO SCH ×2 (09:11→20:27)
[2017-01-16] MEDS: NICOTINE (14 MG/24 HR) PATCH TRANSDERM SCH (09:13)
--- NOTE | 2017-01-16 12:07 | CONS ---
Date/Time of Note Date/Time of Note DATE: 01/16/17 TIME: 12:04 Assessment/Plan Assessment/Plan Additional Assessment/Plan 1. Preoperative evaluation in a patient with a history of percutaneous transluminal coronary angioplasty and stent placement prior to possible repair of endovascular leak from an endovascular aortic graft- surgery planned for Tuesday. Stable, no CP now - ready for surgery. 2. History of percutaneous transluminal coronary angioplasty and stent placement- no CP now. 3. Hypertension. Under reasonable control - con't to monitor. 4. Bradycardia, borderline- no indication for pacer 5. History of abdominal aortic aneurysm, status post endovascular repair, with possible endoleak type 1. Vascular follows. 6. Dyslipidemia. 7. Possible angina by medications - now stable. 8. Ongoing tobacco usage Consultation Date/Type/Reason Admit Date/Time Jan 13, 2017 at 09:00 24 HR Interval Summary Free Text/Dictation NO acute change - BP stable - in good fluid status now. OFF TELE. ROS: No fever, no chills, no nausea, no vomiting, no diarrhea/constipation No recent weight changes No chest pain, no PND, no orthopnea No dizziness, blurred vision No thirst, no heat or cold intolerance Exam/Review of Systems Vital Signs Vitals Vital Signs Date Time Temp Pulse Resp B/P Pulse Ox O2 Delivery O2 Flow Rate FiO2 01/16/17 08:01 97.8 53 18 139/68 96 Intake and Output 01/15/17 01/15/17 01/16/17 15:00 23:00 07:00 Intake Total 1950 ml 200 ml Output Total 600 ml 500 ml Balance 1350 ml -300 ml Exam General: WN/WD/NAD, AOx 3 HEENT: Unicetric/atraumatic/EOMI (follow commands) NECK: JVD elevated, no thyromegaly Lymph: no lymphadenopathy HEART: regular with no S3, II/ systolic murmur at apex LUNGS: Coarse sounds ABD: soft, NT, ND, +BS : Intact Neuro: non focal SKIN: chronic changes EXT: trace edema Results Result Diagram: 01/15/1742901/15/17429 Medications Medications Current Medications Pantoprazole (Protonix Tab) 40 mg DAILY@06 PO Last administered on 01/16/17t 06: 32; Admin Dose 40 MG; Start 01/12/17 at 06:00 Bisacodyl (Dulcolax) 10 mg DAILY PRN PO CONSTIPATION; Start 01/12/17 at 00:30 Acetaminophen (Tylenol Tab) 650 mg Q6H PRN PO PAIN AND OR ELEVATED TEMP Last administered on 01/14/17 17:13; Admin Dose 650 MG; Start 01/12/17 at 00:30 Morphine Sulfate (morphine) 2 mg Q4H PRN IV PAIN 7-05/24 Last administered on 14:36; Admin Dose 2 MG; Start 01/12/17 at 00:30 Nicotine (Nicoderm 14 Mg/ 24hr) 1 patch DAILY TRANSDERM Last administered on 09:13; Admin Dose 1 PATCH; Start 01/12/17 at 09:00 Aspirin (Halfprin) 81 mg DAILY PO Last administered on 01/16/17 09:08; Admin Dose 81 MG; Start 01/12/17 at 14:00 Isosorbide Mononitrate (Imdur) 60 mg DAILY PO Last administered on 01/16/17 09: 07; Admin Dose 60 MG; Start 01/12/17 at 14:00 Clopidogrel Bisulfate (plaVIX) 75 mg DAILY PO Last administered on 01/13/17 09: 12; Admin Dose 75 MG; Start 01/12/17 at 14:00; Status Future Hold Lisinopril (Zestril) 5 mg DAILY PO Last administered on 01/16/17 09:08; Admin Dose 5 MG; Start 01/12/17 at 14:00 Atorvastatin Calcium (Lipitor) 20 mg HS PO Last administered on 01/15/17 21:15 ; Admin Dose 20 MG; Start 01/12/17 at 21:00 Ondansetron HCl (Zofran Inj) 4 mg Q6H PRN IV NAUSEA AND/OR VOMITING Last administered on 01/12/17 18:29; Admin Dose 4 MG; Start 01/12/17 at 18:20 Metoprolol Tartrate (Lopressor) 12.5 mg BID PO Last administered on 01/16/17 09 :11; Admin Dose 12.5 MG; Start 01/14/17 at 21:00 SIN SERRANO MD Jan 16, 2017 12:06
--- NOTE | 2017-01-16 13:33 | PN ---
Date/Time of Note Date/Time of Note DATE: 01/16/17 TIME: 13:31 Assessment/Plan VTE Prophylaxis VTE Prophylaxis Intervention: other Lines/Catheters IV Catheter Type (from Nrsg): Peripheral IV Assessment/Plan Chief Complaint/Hosp Course IMPRESSION: 1. The patient has lower extremity weakness and back pain.BETTER 2. Rule out vascular insufficiency. 3. Hypertension. 4. History of coronary artery disease. 5. History of percutaneous transluminal coronary angioplasty with stent placement. 6. History of abdominal aortic aneurysm, endovascular stent.NOW ENDOLEAK 7. 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 plan per surgery and dr martinez Problems: Subjective 24 Hr Interval Summary Respiratory: no complaints Cardiovascular: no complaints Gastrointestinal: no complaints Exam/Review of Systems Vital Signs Vitals Vital Signs Date Time Temp Pulse Resp B/P Pulse Ox O2 Delivery O2 Flow Rate FiO2 01/16/17 08:01 97.8 53 18 139/68 96 Intake and Output 01/15/17 01/15/17 01/16/17 15:00 23:00 07:00 Intake Total 1950 ml 200 ml Output Total 600 ml 500 ml Balance 1350 ml -300 ml Exam Respiratory: clear to auscultation Cardiovascular: regular rate and rhythm Gastrointestinal: nl liver, spleen, soft Genitourinary - Male: nl scrotum Musculoskeletal: nl extremities to inspection Results Result Diagram: 01/15/1742901/15/17 043 Medications Medications Current Medications Pantoprazole (Protonix Tab) 40 mg DAILY@06 PO Last administered on 01/16/17 06: 32; Admin Dose 40 MG; Start 01/12/17 at 06:00 Bisacodyl (Dulcolax) 10 mg DAILY PRN PO CONSTIPATION; Start 01/12/17 at 00:30 Acetaminophen (Tylenol Tab) 650 mg Q6H PRN PO PAIN AND OR ELEVATED TEMP Last administered on 01/14/17 17:13; Admin Dose 650 MG; Start 01/12/17 at 00:30 Morphine Sulfate (morphine) 2 mg Q4H PRN IV PAIN 7-05/24 Last administered on 14:36; Admin Dose 2 MG; Start 01/12/17 at 00:30 Nicotine (Nicoderm 14 Mg/ 24hr) 1 patch DAILY TRANSDERM Last administered on 09:13; Admin Dose 1 PATCH; Start 01/12/17 at 09:00 Aspirin (Halfprin) 81 mg DAILY PO Last administered on 01/16/17 09:08; Admin Dose 81 MG; Start 01/12/17 at 14:00 Isosorbide Mononitrate (Imdur) 60 mg DAILY PO Last administered on 01/16/17 09: 07; Admin Dose 60 MG; Start 01/12/17 at 14:00 Clopidogrel Bisulfate (plaVIX) 75 mg DAILY PO Last administered on 01/13/17 09: 12; Admin Dose 75 MG; Start 01/12/17 at 14:00; Status Future Hold Lisinopril (Zestril) 5 mg DAILY PO Last administered on 01/16/17 09:08; Admin Dose 5 MG; Start 01/12/17 at 14:00 Atorvastatin Calcium (Lipitor) 20 mg HS PO Last administered on 01/15/17 21:15 ; Admin Dose 20 MG; Start 01/12/17 at 21:00 Ondansetron HCl (Zofran Inj) 4 mg Q6H PRN IV NAUSEA AND/OR VOMITING Last administered on 01/12/17 18:29; Admin Dose 4 MG; Start 01/12/17 at 18:20 Metoprolol Tartrate (Lopressor) 12.5 mg BID PO Last administered on 01/16/17 09 :11; Admin Dose 12.5 MG; Start 01/14/17 at 21:00 NARCISO REN MD Jan 16, 2017 13:33
[2017-01-16 18:59] VITALS: BP 143/67; RESP 18
[2017-01-16] MEDS: ATORVASTATIN 20 MG TAB PO SCH (20:27)
[2017-01-17] MEDS: PANTOPRAZOLE (EC) 40 MG TAB PO SCH (05:47)
[2017-01-17 07:50] VITALS: BP 142/67; RESP 17
[2017-01-17] MEDS: METOPROLOL 25 MG TAB PO SCH ×2 (09:00→21:38)
[2017-01-17] MEDS: NICOTINE (14 MG/24 HR) PATCH TRANSDERM SCH (09:56)
[2017-01-17] MEDS: ASPIRIN (EC) 81 MG TAB PO SCH (09:57)
[2017-01-17] MEDS: ISOSORBIDE MONONITRATE(SR)60 MG TAB PO SCH (09:57)
[2017-01-17] MEDS: LISINOPRIL 5 MG TAB PO SCH (09:57)
--- NOTE | 2017-01-17 14:08 | CONS ---
Date/Time of Note Date/Time of Note DATE: 01/17/17 TIME: 14:00 Assessment/Plan Assessment/Plan Chief Complaint/Hosp Course IMPRESSION: 1. Preoperative evaluation in a patient with a history of percutaneous transluminal coronary angioplasty and stent placement prior to possible repair of endovascular leak from an endovascular aortic graft. 2. History of percutaneous transluminal coronary angioplasty and stent placement. 3. Hypertension. Under reasonable control. 4. Bradycardia, borderline. 5. History of abdominal aortic aneurysm, status post endovascular repair, with possible endoleak type 1. 6. Dyslipidemia. 7. Possible angina by medications. 8. Ongoing tobacco usage. 9.Cardiomyopathy-low EF Recc: -Continue ACEI/isordil -Continue BB as tolerated -pnding surgery for endovscular leak. If is to have general anesthesia would recc lexiscan pre-op -Follow volume status closely Problems: Consultation Date/Type/Reason Admit Date/Time Jan 13, 2017 at 09:00 Initial Consult Date 01/14/2017 Type of Consultation: Cardiology Reason for Consultation pre-op/cardiomyopathy Referring Provider: NARCISO REN Exam/Review of Systems Vital Signs Vitals Vital Signs Date Time Temp Pulse Resp B/P Pulse Ox O2 Delivery O2 Flow Rate FiO2 01/17/17 07:50 97.9 51 17 142/67 95 Intake and Output 01/16/17 01/16/17 01/17/17 15:00 23:00 07:00 Intake Total 1120 ml 0 ml Output Total 1200 ml Balance -80 ml 0 ml Exam Review of Systems: CONSTITUTIONAL: No fevers, chills. PULMONARY: No sob CARDIOVASCULAR: No chest pain/palpitations GASTROINTESTINAL: No nausea/vomiting. GENITOURINARY: No hematuria/dysuria. MUSCULOSKELETAL: No myagias/arthalgias. PSYCHIATRIC: The patient denies depression. NEUROLOGIC: No weakness Constitutional: alert, oriented Psych: no complaints Head: normocephalic ENMT: mucosa pink and moist Neck: jvd (8 cm water), supple Respiratory: diminished breath sounds Cardiovascular: regular rate and rhythm Gastrointestinal: non-tender Musculoskeletal: muscle tone Extremities: edema (none) Neurological: other (No focal deficits) Results Result Diagram: 01/15/170 01/15/17429 Medications Medications Current Medications Pantoprazole (Protonix Tab) 40 mg DAILY@06 PO Last administered on 01/16/17 06: 32; Admin Dose 40 MG; Start 01/12/17 at 06:00 Bisacodyl (Dulcolax) 10 mg DAILY PRN PO CONSTIPATION; Start 01/12/17 at 00:30 Acetaminophen (Tylenol Tab) 650 mg Q6H PRN PO PAIN AND OR ELEVATED TEMP Last administered on 01/14/17 17:13; Admin Dose 650 MG; Start 01/12/17 at 00:30 Morphine Sulfate (morphine) 2 mg Q4H PRN IV PAIN -05/24 Last administered on 14:36; Admin Dose 2 MG; Start 01/12/17 at 00:30 Nicotine (Nicoderm 14 Mg/ 24hr) 1 patch DAILY TRANSDERM Last administered on 09:56; Admin Dose 1 PATCH; Start 01/12/17 at 09:00 Aspirin (Halfprin) 81 mg DAILY PO Last administered on 01/17/17 09:57; Admin Dose 81 MG; Start 01/12/17 at 14:00 Isosorbide Mononitrate (Imdur) 60 mg DAILY PO Last administered on 01/17/17 09: 57; Admin Dose 60 MG; Start 01/12/17 at 14:00 Clopidogrel Bisulfate (plaVIX) 75 mg DAILY PO Last administered on 01/13/17 09: 12; Admin Dose 75 MG; Start 01/12/17 at 14:00; Status Future Hold Lisinopril (Zestril) 5 mg DAILY PO Last administered on 01/17/17 09:57; Admin Dose 5 MG; Start 01/12/17 at 14:00 Atorvastatin Calcium (Lipitor) 20 mg HS PO Last administered on 01/16/17 20:27 ; Admin Dose 20 MG; Start 01/12/17 at 21:00 Ondansetron HCl (Zofran Inj) 4 mg Q6H PRN IV NAUSEA AND/OR VOMITING Last administered on 01/12/17 18:29; Admin Dose 4 MG; Start 01/12/17 at 18:20 Metoprolol Tartrate (Lopressor) 12.5 mg BID PO Last administered on 01/16/17 20 :27; Admin Dose 12.5 MG; Start 01/14/17 at 21:00 ANTONIO LOWE Jan 17, 2017 14:08
--- NOTE | 2017-01-17 14:34 | PN ---
Date/Time of Note Date/Time of Note DATE: 01/17/17 TIME: 14:33 Assessment/Plan Lines/Catheters IV Catheter Type (from Nrsg): Peripheral IV Assessment/Plan Chief Complaint/Hosp Course SP EVAR Type 1 Endo leak Plan for repair of type EVAR endoleak tomorrow Problems: Subjective 24 Hr Interval Summary Constitutional: improved Pain Control: mild Exam/Review of Systems Vital Signs Vitals Vital Signs Date Time Temp Pulse Resp B/P Pulse Ox O2 Delivery O2 Flow Rate FiO2 01/17/17 07:50 97.9 51 17 142/67 95 Intake and Output 01/16/17 01/16/17 01/17/17 14:59 22:59 06:59 Intake Total 1120 ml 0 ml Output Total 1200 ml Balance -80 ml 0 ml Exam Neck: non-tender, supple Respiratory: clear to auscultation, normal air movement Cardiovascular: nl pulses, regular rate and rhythm Gastrointestinal: nl liver, spleen, non-tender, soft Results Result Diagram: 01/15/17 0430 01/15/17 043 MALERAJINDER NUNEZ MD Jan 17, 2017 14:34
--- NOTE | 2017-01-17 14:36 | EN ---
Date/Time of Note Date/Time of Note DATE: 01/17/17 TIME: 14:35 Event Note Surgery Surgery Event Note Plan for repair of EVAR endoleak tomorrow if pt is cleared by cardiology RAJINDER ADAMS MD Jan 17, 2017 14:36
--- NOTE | 2017-01-17 19:18 | PN ---
Date/Time of Note Date/Time of Note DATE: 01/17/17 TIME: 19:18 Assessment/Plan VTE Prophylaxis VTE Prophylaxis Intervention: other Lines/Catheters IV Catheter Type (from Nrsg): Peripheral IV Reason Cath still needed: other (indicate) Assessment/Plan Chief Complaint/Hosp Course IMPRESSION: 1. The patient has lower extremity weakness and back pain.BETTER 2. Rule out vascular insufficiency. 3. Hypertension. 4. History of coronary artery disease. 5. History of percutaneous transluminal coronary angioplasty with stent placement. 6. History of abdominal aortic aneurysm, endovascular stent.NOW ENDOLEAK 7. 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 plan per surgery and dr martinez Problems: Subjective 24 Hr Interval Summary Cardiovascular: no complaints Gastrointestinal: no complaints Exam/Review of Systems Vital Signs Vitals Vital Signs Date Time Temp Pulse Resp B/P Pulse Ox O2 Delivery O2 Flow Rate FiO2 01/17/17 07:50 97.9 51 17 142/67 95 Intake and Output 01/16/17 01/16/17 01/17/17 15:00 23:00 07:00 Intake Total 1120 ml 0 ml Output Total 1200 ml Balance -80 ml 0 ml Exam Neck: supple Respiratory: clear to auscultation Cardiovascular: regular rate and rhythm Gastrointestinal: soft Results Result Diagram: 01/15/17 0430 01/15/17 0430 Medications Medications Current Medications Pantoprazole (Protonix Tab) 40 mg DAILY@06 PO Last administered on 01/16/17 06: 32; Admin Dose 40 MG; Start 01/12/17 at 06:00 Bisacodyl (Dulcolax) 10 mg DAILY PRN PO CONSTIPATION; Start 01/12/17 at 00:30 Acetaminophen (Tylenol Tab) 650 mg Q6H PRN PO PAIN AND OR ELEVATED TEMP Last administered on 01/14/17 17:13; Admin Dose 650 MG; Start 01/12/17 at 00:30 Morphine Sulfate (morphine) 2 mg Q4H PRN IV PAIN -05/24 Last administered on 14:36; Admin Dose 2 MG; Start 01/12/17 at 00:30 Nicotine (Nicoderm 14 Mg/ 24hr) 1 patch DAILY TRANSDERM Last administered on 09:56; Admin Dose 1 PATCH; Start 01/12/17 at 09:00 Aspirin (Halfprin) 81 mg DAILY PO Last administered on 01/17/17 09:57; Admin Dose 81 MG; Start 01/12/17 at 14:00 Isosorbide Mononitrate (Imdur) 60 mg DAILY PO Last administered on 01/17/17 09: 57; Admin Dose 60 MG; Start 01/12/17 at 14:00 Clopidogrel Bisulfate (plaVIX) 75 mg DAILY PO Last administered on 01/13/17 09: 12; Admin Dose 75 MG; Start 01/12/17 at 14:00; Status Future Hold Lisinopril (Zestril) 5 mg DAILY PO Last administered on 01/17/17 09:57; Admin Dose 5 MG; Start 01/12/17 at 14:00 Atorvastatin Calcium (Lipitor) 20 mg HS PO Last administered on 01/16/17 20:27 ; Admin Dose 20 MG; Start 01/12/17 at 21:00 Ondansetron HCl (Zofran Inj) 4 mg Q6H PRN IV NAUSEA AND/OR VOMITING Last administered on 01/12/17 18:29; Admin Dose 4 MG; Start 01/12/17 at 18:20 Metoprolol Tartrate (Lopressor) 12.5 mg BID PO Last administered on 01/16/17 20 :27; Admin Dose 12.5 MG; Start 01/14/17 at 21:00 NARCISO REN MD Jan 17, 2017 19:18
[2017-01-17 19:55] VITALS: BP 147/71; RESP 18
[2017-01-17] MEDS: ATORVASTATIN 20 MG TAB PO SCH (21:36)
[2017-01-18] VITALS (24 sets, daily range): BP systolic 109–174; BP diastolic 51–84; PULSE 49–62; RESP 14–36
[2017-01-18] MEDS: PANTOPRAZOLE (EC) 40 MG TAB PO SCH (06:24)
[2017-01-18] MEDS ORDERED: GLYCOPYRROLATE 1 MG INJ ONE (07:00)
[2017-01-18] MEDS ORDERED: NEOSTIGMINE 3 MG/3 ML SYRINGE ONE (07:00)
[2017-01-18] MEDS: LISINOPRIL 5 MG TAB PO SCH (09:00)
[2017-01-18] MEDS: ASPIRIN (EC) 81 MG TAB PO SCH (09:00)
[2017-01-18] MEDS: ISOSORBIDE MONONITRATE(SR)60 MG TAB PO SCH (09:00)
--- NOTE | 2017-01-18 09:41 | CONS ---
Date/Time of Note Date/Time of Note DATE: 01/18/17 TIME: 09:40 Consultation Date/Type/Reason Admit Date/Time Jan 13, 2017 at 09:00 Type of Consultation: Cardiology Referring Provider: NARCISO REN MD 24 HR Interval Summary Free Text/Dictation In surgery now - will follow jorge-op Exam/Review of Systems Vital Signs Vitals Vital Signs Date Time Temp Pulse Resp B/P Pulse Ox O2 Delivery O2 Flow Rate FiO2 01/18/17 08:48 98.2 68 18 135/61 95 Intake and Output 01/17/17 01/17/17 01/18/17 14:59 22:59 06:59 Intake Total 700 ml 100 ml Balance 700 ml 100 ml Results Result Diagram: 01/15/17 0430 01/15/17 0430 Medications Medications Current Medications Pantoprazole (Protonix Tab) 40 mg DAILY@06 PO Last administered on 01/18/17 06: 24; Admin Dose 40 MG; Start 01/12/17 at 06:00 Bisacodyl (Dulcolax) 10 mg DAILY PRN PO CONSTIPATION; Start 01/12/17 at 00:30 Acetaminophen (Tylenol Tab) 650 mg Q6H PRN PO PAIN AND OR ELEVATED TEMP Last administered on 01/14/17 17:13; Admin Dose 650 MG; Start 01/12/17 at 00:30 Morphine Sulfate (morphine) 2 mg Q4H PRN IV PAIN -05/24 Last administered on 14:36; Admin Dose 2 MG; Start 01/12/17 at 00:30 Nicotine (Nicoderm 14 Mg/ 24hr) 1 patch DAILY TRANSDERM Last administered on 09:56; Admin Dose 1 PATCH; Start 01/12/17 at 09:00 Aspirin (Halfprin) 81 mg DAILY PO Last administered on 01/17/17 09:57; Admin Dose 81 MG; Start 01/12/17 at 14:00 Isosorbide Mononitrate (Imdur) 60 mg DAILY PO Last administered on 01/17/17 09: 57; Admin Dose 60 MG; Start 01/12/17 at 14:00 Clopidogrel Bisulfate (plaVIX) 75 mg DAILY PO Last administered on 01/13/17 09: 12; Admin Dose 75 MG; Start 01/12/17 at 14:00; Status Future Hold Lisinopril (Zestril) 5 mg DAILY PO Last administered on 01/17/17 09:57; Admin Dose 5 MG; Start 01/12/17 at 14:00 Atorvastatin Calcium (Lipitor) 20 mg HS PO Last administered on 01/17/17 21:36 ; Admin Dose 20 MG; Start 01/12/17 at 21:00 Ondansetron HCl (Zofran Inj) 4 mg Q6H PRN IV NAUSEA AND/OR VOMITING Last administered on 01/12/17 18:29; Admin Dose 4 MG; Start 01/12/17 at 18:20 Metoprolol Tartrate (Lopressor) 12.5 mg BID PO Last administered on 01/17/17 21 :38; Admin Dose 12.5 MG; Start 01/14/17 at 21:00 SIN SERRANO MD Jan 18, 2017 09:40
[2017-01-18] MEDS ORDERED: REGADENOSON 0.4 MG/5 ML SYG ONE (09:44)
--- NOTE | 2017-01-18 10:30 | CONS ---
Date/Time of Note Date/Time of Note DATE: 01/18/17 TIME: 10:28 Assessment/Plan Assessment/Plan Additional Assessment/Plan 1. Preoperative evaluation in a patient with a history of percutaneous transluminal coronary angioplasty and stent placement prior to possible repair of endovascular leak from an endovascular aortic graft- per DR. South, stress test to follow today. 2. History of percutaneous transluminal coronary angioplasty and stent placement- stress test today. 3. Hypertension. Under reasonable control. 4. Bradycardia, borderline- HR in 60s during stress test. 5. History of abdominal aortic aneurysm, status post endovascular repair, with possible endoleak type 1. 6. Dyslipidemia. 7. Possible angina by medications. 8. Ongoing tobacco usage. 9.Cardiomyopathy-low EF Consultation Date/Type/Reason Admit Date/Time Jan 13, 2017 at 09:00 Type of Consultation: Cardiology Referring Provider: NARCISO REN MD 24 HR Interval Summary Free Text/Dictation No acute events - Stress test today ROS: No fever, no chills, no nausea, no vomiting, no diarrhea/constipation No recent weight changes No chest pain, no PND, no orthopnea No dizziness, blurred vision No thirst, no heat or cold intolerance Exam/Review of Systems Vital Signs Vitals Vital Signs Date Time Temp Pulse Resp B/P Pulse Ox O2 Delivery O2 Flow Rate FiO2 01/18/17 08:48 98.2 68 18 135/61 95 Intake and Output 01/17/17 01/17/17 01/18/17 15:00 23:00 07:00 Intake Total 700 ml 100 ml Balance 700 ml 100 ml Exam General: WN/WD/NAD, AOx 3 HEENT: Unicetric/atraumatic/EOMI ( follow commands) NECK: JVD elevated, no thyromegaly Lymph: no lymphadenopathy HEART: regular with no S3, II/ systolic murmur at apex LUNGS: Coarse sounds ABD: soft, NT, ND, +BS : Intact Neuro: non focal SKIN: chronic changes EXT: trace edema Results Result Diagram: 01/15/1742901/15/17429 Medications Medications Current Medications Pantoprazole (Protonix Tab) 40 mg DAILY@06 PO Last administered on 01/18/17t 06: 24; Admin Dose 40 MG; Start 01/12/17 at 06:00 Bisacodyl (Dulcolax) 10 mg DAILY PRN PO CONSTIPATION; Start 01/12/17 at 00:30 Acetaminophen (Tylenol Tab) 650 mg Q6H PRN PO PAIN AND OR ELEVATED TEMP Last administered on 01/14/17 17:13; Admin Dose 650 MG; Start 01/12/17 at 00:30 Morphine Sulfate (morphine) 2 mg Q4H PRN IV PAIN 7-1010 Last administered on 14:36; Admin Dose 2 MG; Start 01/12/17 at 00:30 Nicotine (Nicoderm 14 Mg/ 24hr) 1 patch DAILY TRANSDERM Last administered on 09:56; Admin Dose 1 PATCH; Start 01/12/17 at 09:00 Aspirin (Halfprin) 81 mg DAILY PO Last administered on 01/17/17 09:57; Admin Dose 81 MG; Start 01/12/17 at 14:00 Isosorbide Mononitrate (Imdur) 60 mg DAILY PO Last administered on 01/17/17 09: 57; Admin Dose 60 MG; Start 01/12/17 at 14:00 Clopidogrel Bisulfate (plaVIX) 75 mg DAILY PO Last administered on 01/13/17 09: 12; Admin Dose 75 MG; Start 01/12/17 at 14:00; Status Future Hold Lisinopril (Zestril) 5 mg DAILY PO Last administered on 01/17/17 09:57; Admin Dose 5 MG; Start 01/12/17 at 14:00 Atorvastatin Calcium (Lipitor) 20 mg HS PO Last administered on 01/17/17 21:36 ; Admin Dose 20 MG; Start 01/12/17 at 21:00 Ondansetron HCl (Zofran Inj) 4 mg Q6H PRN IV NAUSEA AND/OR VOMITING Last administered on 01/12/17 18:29; Admin Dose 4 MG; Start 01/12/17 at 18:20 Metoprolol Tartrate (Lopressor) 12.5 mg BID PO Last administered on 01/17/17 21 :38; Admin Dose 12.5 MG; Start 01/14/17 at 21:00 SIN SERRANO MD Jan 18, 2017 10:30
[2017-01-18] MEDS: NICOTINE (14 MG/24 HR) PATCH TRANSDERM SCH (12:45)
[2017-01-18] MEDS: METOPROLOL 25 MG TAB PO SCH ×2 (12:50→21:00)
--- NOTE | 2017-01-18 12:52 | RADRPT ---
PROCEDURE: Lexiscan myocardial perfusion study CLINICAL INDICATION: 81 -year-old patient complaining of chest pain. TECHNIQUE: Lexiscan 0.4 mg intravenously separate acquisition gated myocardial perfusion SPECT usi ng Tc 99m Myoview 29.3 9.6 mCi intravenously at stress and Tc-99m Myoview, mCi intravenously at res t was performed using the rest/stress sequence. Poststress Myoview SPECT images were obtained in th e supine position. COMPARISON: No prior studies. FINDINGS: Perfusion images reveal a small to moderate size moderate in degree predominantly nonreversible perf usion defect in the inferior and inferolateral parra. Lexiscan post stress gated SPECT images demonstrate mild hypokinesis of the inferior and inferolater al parra. IMPRESSION: 1. The type and distribution of the scintigraphic abnormalities are most consistent with a small to moderate size predominantly nonreversible perfusion defect involving the inferior and inferolateral parra. 2. Mild hypokinesis of the inferior and inferolateral parra. 3. The left ventricle ejection fraction at stress is 44%. A call report was made to Dr. Bangura at 12:50 p.m. on January 18, 2017 RPTAT: HH .Lary Curiel MD, Date Time Electronically viewed and signed by .Lary Curiel MD, MD on 01/18/2017 12:52 .L/
--- NOTE | 2017-01-18 13:16 | ECORPT ---
DATE OF SERVICE: 01/18/2017 PROCEDURE: Lexiscan Cardiolite stress test REFERRING PHYSICIAN: Fei Law MD REASON FOR EVALUATION: Preoperative assessment. DESCRIPTION OF PROCEDURE: The patient was brought in to the heart station. He was in a fasting con dition. He was somewhat bradycardic with a heart rate 49. He received successful injection. He to lerated the injection well. He had some PACs. The imaging portion of the report will be dictated s eparately. Dictated By: SIN SERRANO MD ML/NTS Conf#: [id number] DID#: [id number]
[2017-01-18 14:32] LABS: INR 1.11; PROTIME 14.3 Sec (12.2-14.2); PT RATIO 1.1
[2017-01-18 14:33] LABS: PARTIAL THROMBOPLASTIN TIME 31.2 Sec (25.0-35.0)
[2017-01-18] MEDS ORDERED: HEPARIN 1000 UNITS/ML 10 ML INJ ONE ×2 (18:27→20:16)
[2017-01-18] MEDS ORDERED: IOHEXOL 300MG/ML 150 ML BTL ONE (18:31)
[2017-01-18] MEDS ORDERED: SUCCINYLCHOLINE CHLORIDE 100 MG/5 ML SYG IV ONE (18:48)
[2017-01-18] MEDS ORDERED: ROCURONIUM 50 MG INJ ONE (18:48)
[2017-01-18] MEDS ORDERED: PROPOFOL 20 ML ONE (18:48)
[2017-01-18] MEDS ORDERED: LIDOCAINE 2% (SDV) 5 ML INJ ONE (18:48)
[2017-01-18] MEDS ORDERED: FENTAnyl 50 MCG/ML VIAL ONE (18:49)
[2017-01-18] MEDS ORDERED: CEFAZOLIN 1 GM INJ ONE (19:38)
[2017-01-18] MEDS ORDERED: IOHEXOL 300MG/ML 30 ML BTL ONE (19:50)
[2017-01-18] MEDS ORDERED: LABETALOL HCL 20MG INJ ONE (20:44)
--- NOTE | 2017-01-18 20:56 | OPR ---
Date/Time of Note Date/Time of Note DATE: 01/18/17 TIME: 20:55 Operative Report Preoperative Diagnosis AAA Postoperative Diagnosis AAA Operation Performed Iliac Angiogram Surgeon: RAJINDER ADAMS MD Anesthesia: general Estimated Blood Loss: minimal Complications: None Pt Condition Post Procedure: stable Disposition: PACU RAJINDER ADAMS MD Jan 18, 2017 20:56
[2017-01-18] MEDS ORDERED: LABETALOL HCL 20MG INJ IV PRN (21:00)
[2017-01-18] MEDS ORDERED: MEPERIDINE 25 MG INJ IV PRN (21:00)
[2017-01-18] MEDS ORDERED: hydrALAzine 20 MG INJ IV PRN (21:00)
[2017-01-18] MEDS ORDERED: DIPHENHYDRAMINE 50 MG INJ IV PRN (21:00)
[2017-01-18] MEDS ORDERED: HYDROmorphONE (0.2 MG/ML) 10ML SYG IV PRN ×2 (21:00)
[2017-01-18] MEDS ORDERED: METOCLOPRAMIDE 10 MG INJ IV PRN (21:00)
[2017-01-18] MEDS ORDERED: FENTAnyl 50 MCG/ML VIAL IV PRN (21:00)
[2017-01-18] MEDS: ATORVASTATIN 20 MG TAB PO SCH (21:00)
[2017-01-18] MEDS ORDERED: ONDANSETRON 4 MG INJ IV PRN (21:00)
--- NOTE | 2017-01-18 23:15 | PN ---
Date/Time of Note Date/Time of Note DATE: 01/18/17 TIME: 23:14 Assessment/Plan VTE Prophylaxis VTE Prophylaxis Intervention: other Lines/Catheters IV Catheter Type (from Nrs): Saline Lock Urinary Cath still in place: Yes Reason Cath still needed: other (indicate) Assessment/Plan Chief Complaint/Hosp Course IMPRESSION: 1. The patient has lower extremity weakness and back pain.BETTER 2. Rule out vascular insufficiency. 3. Hypertension. 4. History of coronary artery disease. 5. History of percutaneous transluminal coronary angioplasty with stent placement. 6. History of abdominal aortic aneurysm, endovascular stent.NOW ENDOLEAK 7. 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 plan per surgery and dr michelle palmer scan seen Problems: Subjective 24 Hr Interval Summary Genitourinary: no complaints Musculoskeletal: no complaints Exam/Review of Systems Vital Signs Vitals Vital Signs Date Time Temp Pulse Resp B/P Pulse Ox O2 Delivery O2 Flow Rate FiO2 01/18/17 22:29 97.3 58 20 125/60 98 01/18/17 22:12 Nasal Cannula 2.0 Intake and Output 01/17/17 01/17/17 01/18/17 15:00 23:00 07:00 Intake Total 700 ml 100 ml Balance 700 ml 100 ml Exam Respiratory: clear to auscultation Cardiovascular: regular rate and rhythm Gastrointestinal: bowel sounds (+), soft Results Result Diagram: 01/15/17 0430 01/15/17 0430 Results 24 hrs Laboratory Tests Test 01/18/17 13:52 Prothrombin Time 14.3 H Prothrombin Time Ratio 1.1 INR International Normalized Ratio 1.11 Activated Partial Thromboplast Time 31.2 Medications Medications Current Medications Pantoprazole (Protonix Tab) 40 mg DAILY@06 PO Last administered on 01/18/17 06: 24; Admin Dose 40 MG; Start 01/12/17 at 06:00 Bisacodyl (Dulcolax) 10 mg DAILY PRN PO CONSTIPATION; Start 01/12/17 at 00:30 Acetaminophen (Tylenol Tab) 650 mg Q6H PRN PO PAIN AND OR ELEVATED TEMP Last administered on 01/14/17 17:13; Admin Dose 650 MG; Start 01/12/17 at 00:30 Morphine Sulfate (morphine) 2 mg Q4H PRN IV PAIN -05/24 Last administered on 14:36; Admin Dose 2 MG; Start 01/12/17 at 00:30 Nicotine (Nicoderm 14 Mg/ 24hr) 1 patch DAILY TRANSDERM Last administered on 12:45; Admin Dose 1 PATCH; Start 01/12/17 at 09:00 Aspirin (Halfprin) 81 mg DAILY PO Last administered on 01/17/17 09:57; Admin Dose 81 MG; Start 01/12/17 at 14:00 Isosorbide Mononitrate (Imdur) 60 mg DAILY PO Last administered on 01/17/17 09: 57; Admin Dose 60 MG; Start 01/12/17 at 14:00 Clopidogrel Bisulfate (plaVIX) 75 mg DAILY PO Last administered on 01/13/17 09: 12; Admin Dose 75 MG; Start 01/12/17 at 14:00; Status Future Hold Lisinopril (Zestril) 5 mg DAILY PO Last administered on 01/17/17 09:57; Admin Dose 5 MG; Start 01/12/17 at 14:00 Atorvastatin Calcium (Lipitor) 20 mg HS PO Last administered on 01/17/17 21:36 ; Admin Dose 20 MG; Start 01/12/17 at 21:00 Ondansetron HCl (Zofran Inj) 4 mg Q6H PRN IV NAUSEA AND/OR VOMITING Last administered on 01/12/17 18:29; Admin Dose 4 MG; Start 01/12/17 at 18:20 Metoprolol Tartrate (Lopressor) 12.5 mg BID PO Last administered on 01/17/17 21 :38; Admin Dose 12.5 MG; Start 01/14/17 at 21:00 NARCISO REN MD Jan 18, 2017 23:15
[2017-01-19 00:08] VITALS: BP 129/61; RESP 20
[2017-01-19 00:45] VITALS: BP 128/66; PULSE 52; RESP 19
[2017-01-19 04:40] VITALS: BP 121/58; PULSE 62; RESP 18
--- NOTE | 2017-01-19 06:40 | RADRPT ---
PROCEDURE: XR Chest. CLINICAL INDICATION: Back pain TECHNIQUE: Portable single view of the chest COMPARISON: 01/07/2015 FINDINGS: Again seen is mild cardiomegaly and aortic calcification. Scattered calcified granulomas are seen. No acute infiltrate, pleural effusion, or overt congestive heart failure is seen. Degenerative lien nge of the spine is seen. IMPRESSION: No significant interval change. Cardiomegaly and atherosclerotic change. RPTAT: HLBE Mara Juarez Physician Date Time Electronically viewed and signed by Mara Juarez, Physician on 01/19/2017 06:40 LE/
[2017-01-19] MEDS: PANTOPRAZOLE (EC) 40 MG TAB PO SCH (06:51)
--- NOTE | 2017-01-19 07:05 | OPR ---
DATE OF OPERATION: PREOPERATIVE DIAGNOSIS: Abdominal aortic aneurysm, endovascular leak type 1. POSTOPERATIVE DIAGNOSIS: Abdominal aortic aneurysm, endovascular leak type 1. OPERATION PERFORMED: 1. Right lower extremity angiogram. 2. Interpretation and supervision of right lower extremity angiogram. 3. Catheter introduction into the abdominal aorta. 4. Ultrasound guidance into the central artery. 5. Fluoroscopy. SURGEON: Gianfranco Golden MD ANESTHESIA: General. CONSENT: Risks, benefits, complications, alternative therapies explained to the patient and the fam bea, consent obtained. I had a long discussion with the patient and the family prior to surgery. Explained to them the acu te curvature of the iliac artery and the fact that the procedure may not be able to be done percutan eously and other options will be entertained at a later time. OPERATIVE TECHNIQUE: The patient was placed in supine position, prepped and draped in usual sterile fashion. Under ultrasound guidance, access was gained in the right common femoral artery. An 0.03 5 was advanced through for about 15 cm; however, it hit resistance. Under fluoroscopic guidan ce using a Kumpe catheter this was advanced all the way into the right limb of the previous ab dominal endograft, all the way up to the thoracic aorta. We were able to pass a soft catheter over the . However, we were not able to pass a Lunderquist wire into the soft catheter/Kumpe cathet er. At this time, we were able to pass a Amplatz wire through the Kumpe catheter all the way into t he thoracic aorta. Multiple attempts were made to pass a 6 sheath over an Amplatz catheter; however, the angulation of the right iliac artery was very acute, almost like a circular configuration and multiple attempts we re made to pass a 6 sheath catheter over the Amplatz wire, which were unsuccessful, and angiogram wa s done which showed leak, but the very acute care of the iliac artery. After multiple attempt s were made to pass the sheath over the Amplatz wire, which were unsuccessful, we decided to abandon the percutaneous technique. The sheath was then removed. The femoral artery was closed using a Pe rclose technique. Options will be discussed with the patient and the family including possible open technique at a later time. Dictated By: GIANFRANCO HOYT/NTS Conf#: [id number] DID#: [id number] CC: NARCISO REN MD;*End*
[2017-01-19 08:09] VITALS: BP 117/57; RESP 19
[2017-01-19] MEDS: ASPIRIN (EC) 81 MG TAB PO SCH (10:44)
[2017-01-19] MEDS: ISOSORBIDE MONONITRATE(SR)60 MG TAB PO SCH (10:45)
[2017-01-19] MEDS: LISINOPRIL 5 MG TAB PO SCH (10:45)
[2017-01-19] MEDS: NICOTINE (14 MG/24 HR) PATCH TRANSDERM SCH (10:46)
[2017-01-19] MEDS: METOPROLOL 25 MG TAB PO SCH ×2 (10:46→21:23)
--- NOTE | 2017-01-19 10:55 | RADRPT ---
PROCEDURE: X-ray fluoroscopy guidance CLINICAL INDICATION: AAA OR#4 TECHNIQUE: Fluoroscopic guidance was utilized for intraoperative procedure. COMPARISON: None. FINDINGS: Fluoroscopic guidance was utilized for intraoperative procedure. 693 seconds of fluoroscopy time wa s utilized for the procedure. 2 x-ray images were obtained during the procedure. A likely aortobi-iliac stent graft is partially visualized as well as coil masses in the likely inte rnal iliac arteries. IMPRESSION: X-ray fluoroscopic guidance utilized for intraoperative procedure. Likely aortobi-iliac stent graft. Please see procedure note details. RPTAT: EE Physician Farrukh Date Time Electronically viewed and signed by Physician Farrukh on 01/19/2017 10:54 RA/
[2017-01-19 11:56] LABS: ADD SCAN DIFF NO
[2017-01-19 12:00] LABS: BASOPHILS % 0.4 % (0.0-2.0); EOSINOPHILS # 0.1 10^3/ul (0.0-0.5); EOSINOPHILS % 1.2 % (0.0-7.0); HEMATOCRIT 42.5 % (42.0-52.0); HEMOGLOBIN 14.1 g/dl (14.0-18.0); LYMPHOCYTES # 1.6 10^3/ul (0.8-2.9); MEAN CORPUSCULAR HEMOGLOBIN 32.3 pg (29.0-33.0); MEAN CORPUSCULAR HGB CONC 33.2 g/dl (32.0-37.0); MEAN CORPUSCULAR VOLUME 97.5 fl (82.0-101.0); MONOCYTE # 0.5 10^3/ul (0.3-0.9); MONOCYTES % 5.6 % (0.0-11.0); NEUTROPHIL # 7.2 10^3/ul (1.6-7.5); NEUTROPHILS % 75.7 % (39.0-77.0); PLATELET COUNT 307 10^3/UL (140-415); RED BLOOD COUNT 4.36 10^6/ul (4.70-6.10); RED CELL DISTRIBUTION WIDTH 13.4 % (11.5-14.5); WHITE BLOOD COUNT 9.5 10^3/ul (4.8-10.8)
[2017-01-19 12:20] LABS: ALBUMIN 4.1 g/dl (3.3-4.9); ALBUMIN/GLOBULIN RATIO 1.51; BILIRUBIN,INDIRECT 0.8 mg/dl (0-1.1); BILIRUBIN,TOTAL 0.8 mg/dl (0.2-1.3); CALCIUM 9.2 mg/dl (8.4-10.2); CREATININE 0.83 mg/dl (0.61-1.24); POTASSIUM 4.2 mmol/L (3.5-5.1); TOTAL PROTEIN 6.8 g/dl (6.1-8.1)
--- NOTE | 2017-01-19 12:44 | PN ---
Date/Time of Note Date/Time of Note DATE: 01/19/17 TIME: 12:37 Assessment/Plan Lines/Catheters IV Catheter Type (from Nrsg): Saline Lock Rodríguez in Place (from Nrsg): Yes Assessment/Plan Chief Complaint/Hosp Course SP EVAR Type 1 Endo leak Very tortous Iliac artery Will need either open repair or endovascular repair at higher level tertiary canter for repair of type EVAR endoleak will discuss with the family Problems: Subjective 24 Hr Interval Summary Constitutional: improved Pain Control: mild Exam/Review of Systems Vital Signs Vitals Vital Signs Date Time Temp Pulse Resp B/P Pulse Ox O2 Delivery O2 Flow Rate FiO2 01/19/17 08:09 98.0 55 19 117/57 98 01/19/17 04:40 Nasal Cannula 2.0 Intake and Output 01/18/17 01/18/17 01/19/17 15:00 23:00 07:00 Intake Total 1000 ml 300 ml Output Total 660 ml 600 ml Balance 340 ml -300 ml Exam ENMT: mucosa pink and moist, nl external ears & nose, nl lips & teeth, nl nasal mucosa & septum Neck: non-tender, supple Respiratory: clear to auscultation, normal air movement Cardiovascular: nl pulses, regular rate and rhythm Results Result Diagram: 01/19/17 1150 01/19/17 1150 RAJINDER ADAMS MD Jan 19, 2017 12:44
--- NOTE | 2017-01-19 13:15 | CONS ---
Date/Time of Note Date/Time of Note DATE: 01/19/17 TIME: 13:10 Assessment/Plan Assessment/Plan Chief Complaint/Hosp Course IMPRESSION: 1. Preoperative evaluation in a patient with a history of percutaneous transluminal coronary angioplasty and stent placement prior to possible repair of endovascular leak from an endovascular aortic graft. 2. History of percutaneous transluminal coronary angioplasty and stent placement. 3. Hypertension. Under reasonable control. 4. Bradycardia, borderline. 5. History of abdominal aortic aneurysm, status post endovascular repair, with possible endoleak type 1. 6. Dyslipidemia. 7. Possible angina by medications. 8. Ongoing tobacco usage. 9.Cardiomyopathy-low EF 35-40% by echo/44% by stress. Lexiscan this admit no ischemia but scar. If patient is to go for surgery here would be moderate risk without current cardiac contraindication Recc: -Continue ACEI/isordil -Continue BB as tolerated -pnding surgery for endovscular leak with reccs per vascular for transfer to tertiary care center -Follow volume status closely Problems: Consultation Date/Type/Reason Admit Date/Time Jan 13, 2017 at 09:00 Initial Consult Date 01/14/2017 Type of Consultation: Cardiology Reason for Consultation pre-op/cardiomyopathy Referring Provider: NARCISO REN MD Exam/Review of Systems Vital Signs Vitals Vital Signs Date Time Temp Pulse Resp B/P Pulse Ox O2 Delivery O2 Flow Rate FiO2 01/19/17 08:25 Nasal Cannula 2.0 01/19/17 08:09 98.0 55 19 117/57 98 Intake and Output 01/18/17 01/18/17 01/19/17 15:00 23:00 07:00 Intake Total 1000 ml 300 ml Output Total 660 ml 600 ml Balance 340 ml -300 ml Exam Review of Systems: CONSTITUTIONAL: No fevers, chills. PULMONARY: No sob CARDIOVASCULAR: No chest pain/palpitations GASTROINTESTINAL: No nausea/vomiting. GENITOURINARY: No hematuria/dysuria. MUSCULOSKELETAL: No myagias/arthalgias. PSYCHIATRIC: The patient denies depression. NEUROLOGIC: lethargic Constitutional: alert Psych: no complaints Head: normocephalic ENMT: mucosa pink and moist Neck: jvd (9 cm water), supple Respiratory: diminished breath sounds Cardiovascular: regular rate and rhythm Gastrointestinal: non-tender, soft Musculoskeletal: muscle tone (mild weakness) Extremities: other (None) Neurological: other (No focal deficits) Results Result Diagram: 01/19/17 1150 01/19/17 1150 Results 24 hrs Laboratory Tests Test 01/18/17 13:52 01/19/17 11:50 Prothrombin Time 14.3 H Prothrombin Time Ratio 1.1 INR International Normalized Ratio 1.11 Activated Partial Thromboplast Time 31.2 White Blood Count 9.5 Red Blood Count 4.36 L Hemoglobin 14.1 Hematocrit 42.5 Mean Corpuscular Volume 97.5 Mean Corpuscular Hemoglobin 32.3 Mean Corpuscular Hemoglobin Concent 33.2 Red Cell Distribution Width 13.4 Platelet Count 307 Mean Platelet Volume 10.0 Neutrophils % 75.7 Lymphocytes % 17.0 Monocytes % 5.6 Eosinophils % 1.2 Basophils % 0.4 Nucleated Red Blood Cells % 0.0 Neutrophils # 7.2 Lymphocytes # 1.6 Monocytes # 0.5 Eosinophils # 0.1 Basophils # 0.0 Nucleated Red Blood Cells # 0.0 Sodium Level 141 Potassium Level 4.2 Chloride Level 105 Carbon Dioxide Level 26 Anion Gap 14 Blood Urea Nitrogen 17 Creatinine 0.83 Glucose Level 133 Calcium Level 9.2 Total Bilirubin 0.8 Direct Bilirubin 0.00 Indirect Bilirubin 0.8 Aspartate Amino Transf (AST/SGOT) 23 Alanine Aminotransferase (ALT/SGPT) 23 Alkaline Phosphatase 80 Total Protein 6.8 Albumin 4.1 Globulin 2.70 Albumin/Globulin Ratio 1.51 Medications Medications Current Medications Pantoprazole (Protonix Tab) 40 mg DAILY@06 PO Last administered on 01/19/17 06: 51; Admin Dose 40 MG; Start 01/12/17 at 06:00 Bisacodyl (Dulcolax) 10 mg DAILY PRN PO CONSTIPATION; Start 01/12/17 at 00:30 Acetaminophen (Tylenol Tab) 650 mg Q6H PRN PO PAIN AND OR ELEVATED TEMP Last administered on 01/14/17 17:13; Admin Dose 650 MG; Start 01/12/17 at 00:30 Morphine Sulfate (morphine) 2 mg Q4H PRN IV PAIN -05/24 Last administered on 14:36; Admin Dose 2 MG; Start 01/12/17 at 00:30 Nicotine (Nicoderm 14 Mg/ 24hr) 1 patch DAILY TRANSDERM Last administered on 10:46; Admin Dose 1 PATCH; Start 01/12/17 at 09:00 Aspirin (Halfprin) 81 mg DAILY PO Last administered on 01/19/17 10:44; Admin Dose 81 MG; Start 01/12/17 at 14:00 Isosorbide Mononitrate (Imdur) 60 mg DAILY PO Last administered on 01/19/17 10: 45; Admin Dose 60 MG; Start 01/12/17 at 14:00 Clopidogrel Bisulfate (plaVIX) 75 mg DAILY PO Last administered on 01/13/17 09: 12; Admin Dose 75 MG; Start 01/12/17 at 14:00; Status Future Hold Lisinopril (Zestril) 5 mg DAILY PO Last administered on 01/19/17 10:45; Admin Dose 5 MG; Start 01/12/17 at 14:00 Atorvastatin Calcium (Lipitor) 20 mg HS PO Last administered on 01/17/17 21:36 ; Admin Dose 20 MG; Start 01/12/17 at 21:00 Ondansetron HCl (Zofran Inj) 4 mg Q6H PRN IV NAUSEA AND/OR VOMITING Last administered on 01/12/17 18:29; Admin Dose 4 MG; Start 01/12/17 at 18:20 Metoprolol Tartrate (Lopressor) 12.5 mg BID PO Last administered on 01/19/17 10 :46; Admin Dose 12.5 MG; Start 01/14/17 at 21:00 ANTONIO LOWE Jan 19, 2017 13:15
--- NOTE | 2017-01-19 18:27 | PN ---
Date/Time of Note Date/Time of Note DATE: 01/19/17 TIME: 18:25 Assessment/Plan VTE Prophylaxis VTE Prophylaxis Intervention: other Lines/Catheters IV Catheter Type (from [facility]): Saline Lock Urinary Cath still in place: Yes Reason Cath still needed: other (indicate) Assessment/Plan Chief Complaint/Hosp Course IMPRESSION: 1. The patient has lower extremity weakness and back pain.BETTER 2. Rule out vascular insufficiency. 3. Hypertension. 4. History of coronary artery disease. 5. History of percutaneous transluminal coronary angioplasty with stent placement. 6. History of abdominal aortic aneurysm, endovascular stent.NOW ENDOLEAK 7. 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 8 s/p endo leak repair plan per surgery and dr michelle palmer scan seen Problems: Subjective 24 Hr Interval Summary Subjective hx not possible: other (s/p atempt for endo leak repair) Exam/Review of Systems Vital Signs Vitals Vital Signs Date Time Temp Pulse Resp B/P Pulse Ox O2 Delivery O2 Flow Rate FiO2 01/19/17 08:25 Nasal Cannula 2.0 01/19/17 08:09 98.0 55 19 117/57 98 Intake and Output 01/18/17 01/18/17 01/19/17 15:00 23:00 07:00 Intake Total 1000 ml 300 ml Output Total 660 ml 600 ml Balance 340 ml -300 ml Exam Respiratory: clear to auscultation Cardiovascular: regular rate and rhythm Gastrointestinal: soft Musculoskeletal: nl extremities to inspection Extremities: normal pulses Results Result Diagram: 01/19/17 1150 01/19/17 1150 Results 24 hrs Laboratory Tests Test 01/19/17 11:50 White Blood Count 9.5 Red Blood Count 4.36 L Hemoglobin 14.1 Hematocrit 42.5 Mean Corpuscular Volume 97.5 Mean Corpuscular Hemoglobin 32.3 Mean Corpuscular Hemoglobin Concent 33.2 Red Cell Distribution Width 13.4 Platelet Count 307 Mean Platelet Volume 10.0 Neutrophils % 75.7 Lymphocytes % 17.0 Monocytes % 5.6 Eosinophils % 1.2 Basophils % 0.4 Nucleated Red Blood Cells % 0.0 Neutrophils # 7.2 Lymphocytes # 1.6 Monocytes # 0.5 Eosinophils # 0.1 Basophils # 0.0 Nucleated Red Blood Cells # 0.0 Sodium Level 141 Potassium Level 4.2 Chloride Level 105 Carbon Dioxide Level 26 Anion Gap 14 Blood Urea Nitrogen 17 Creatinine 0.83 Glucose Level 133 Calcium Level 9.2 Total Bilirubin 0.8 Direct Bilirubin 0.00 Indirect Bilirubin 0.8 Aspartate Amino Transf (AST/SGOT) 23 Alanine Aminotransferase (ALT/SGPT) 23 Alkaline Phosphatase 80 Total Protein 6.8 Albumin 4.1 Globulin 2.70 Albumin/Globulin Ratio 1.51 Medications Medications Current Medications Pantoprazole (Protonix Tab) 40 mg DAILY@06 PO Last administered on 01/19/17 06: 51; Admin Dose 40 MG; Start 01/12/17 at 06:00 Bisacodyl (Dulcolax) 10 mg DAILY PRN PO CONSTIPATION; Start 01/12/17 at 00:30 Acetaminophen (Tylenol Tab) 650 mg Q6H PRN PO PAIN AND OR ELEVATED TEMP Last administered on 01/14/17 17:13; Admin Dose 650 MG; Start 01/12/17 at 00:30 Morphine Sulfate (morphine) 2 mg Q4H PRN IV PAIN Last administered on 14:36; Admin Dose 2 MG; Start 01/12/17 at 00:30 Nicotine (Nicoderm 14 Mg/ 24hr) 1 patch DAILY TRANSDERM Last administered on 10:46; Admin Dose 1 PATCH; Start 01/12/17 at 09:00 Aspirin (Halfprin) 81 mg DAILY PO Last administered on 01/19/17 10:44; Admin Dose 81 MG; Start 01/12/17 at 14:00 Isosorbide Mononitrate (Imdur) 60 mg DAILY PO Last administered on 01/19/17 10: 45; Admin Dose 60 MG; Start 01/12/17 at 14:00 Clopidogrel Bisulfate (plaVIX) 75 mg DAILY PO Last administered on 01/13/17 09: 12; Admin Dose 75 MG; Start 01/12/17 at 14:00; Status Future Hold Lisinopril (Zestril) 5 mg DAILY PO Last administered on 01/19/17 10:45; Admin Dose 5 MG; Start 01/12/17 at 14:00 Atorvastatin Calcium (Lipitor) 20 mg HS PO Last administered on 01/17/17 21:36 ; Admin Dose 20 MG; Start 01/12/17 at 21:00 Ondansetron HCl (Zofran Inj) 4 mg Q6H PRN IV NAUSEA AND/OR VOMITING Last administered on 01/12/17 18:29; Admin Dose 4 MG; Start 01/12/17 at 18:20 Metoprolol Tartrate (Lopressor) 12.5 mg BID PO Last administered on 01/19/17 10 :46; Admin Dose 12.5 MG; Start 01/14/17 at 21:00 NARCISO REN MD Jan 19, 2017 18:27
[2017-01-19 20:46] VITALS: BP 114/57; RESP 20
[2017-01-19] MEDS: ATORVASTATIN 20 MG TAB PO SCH (21:22)
[2017-01-20] MEDS: PANTOPRAZOLE (EC) 40 MG TAB PO SCH (05:44)
[2017-01-20 07:57] VITALS: BP 119/57; RESP 18
[2017-01-20] MEDS: ASPIRIN (EC) 81 MG TAB PO SCH (09:21)
[2017-01-20] MEDS: LISINOPRIL 5 MG TAB PO SCH (09:22)
[2017-01-20] MEDS: ISOSORBIDE MONONITRATE(SR)60 MG TAB PO SCH (09:22)
[2017-01-20] MEDS: METOPROLOL 25 MG TAB PO SCH ×2 (09:23→20:36)
[2017-01-20] MEDS: NICOTINE (14 MG/24 HR) PATCH TRANSDERM SCH (09:23)
--- NOTE | 2017-01-20 11:39 | CONS ---
Date/Time of Note Date/Time of Note DATE: 01/20/17 TIME: 11:37 Consultation Date/Type/Reason Admit Date/Time Jan 13, 2017 at 09:00 Initial Consult Date 01/20/17 Type of Consultation: Anesthesiology Reason for Consultation Follow up Referring Provider: NARCISO REN MD 24 HR Interval Summary Free Text/Dictation Pt seen and examined at bedside this am is POD#2 for angiogram. Pt states he is doing well with minimal pain and no N/V/D/C. Arterial line was d/c'd as pt no longer requires close hemodynamic monitoring. Will follow up. Constitutional: improved, no complaints Exam/Review of Systems Vital Signs Vitals Vital Signs Date Time Temp Pulse Resp B/P Pulse Ox O2 Delivery O2 Flow Rate FiO2 01/20/17 07:57 97.8 56 18 119/57 94 01/19/17 08:25 Nasal Cannula 2.0 Intake and Output 01/19/17 01/19/17 01/20/17 15:00 23:00 07:00 Intake Total 720 ml 400 ml Output Total 600 ml 600 ml Balance 120 ml -200 ml Results Result Diagram: 01/19/17 1150 01/19/17 1150 Results 24 hrs Laboratory Tests Test 01/19/17 11:50 White Blood Count 9.5 Red Blood Count 4.36 L Hemoglobin 14.1 Hematocrit 42.5 Mean Corpuscular Volume 97.5 Mean Corpuscular Hemoglobin 32.3 Mean Corpuscular Hemoglobin Concent 33.2 Red Cell Distribution Width 13.4 Platelet Count 307 Mean Platelet Volume 10.0 Neutrophils % 75.7 Lymphocytes % 17.0 Monocytes % 5.6 Eosinophils % 1.2 Basophils % 0.4 Nucleated Red Blood Cells % 0.0 Neutrophils # 7.2 Lymphocytes # 1.6 Monocytes # 0.5 Eosinophils # 0.1 Basophils # 0.0 Nucleated Red Blood Cells # 0.0 Sodium Level 141 Potassium Level 4.2 Chloride Level 105 Carbon Dioxide Level 26 Anion Gap 14 Blood Urea Nitrogen 17 Creatinine 0.83 Glucose Level 133 Calcium Level 9.2 Total Bilirubin 0.8 Direct Bilirubin 0.00 Indirect Bilirubin 0.8 Aspartate Amino Transf (AST/SGOT) 23 Alanine Aminotransferase (ALT/SGPT) 23 Alkaline Phosphatase 80 Total Protein 6.8 Albumin 4.1 Globulin 2.70 Albumin/Globulin Ratio 1.51 Medications Medications Current Medications Pantoprazole (Protonix Tab) 40 mg DAILY@06 PO Last administered on 01/20/17 05: 44; Admin Dose 40 MG; Start 01/12/17 at 06:00 Bisacodyl (Dulcolax) 10 mg DAILY PRN PO CONSTIPATION; Start 01/12/17 at 00:30 Acetaminophen (Tylenol Tab) 650 mg Q6H PRN PO PAIN AND OR ELEVATED TEMP Last administered on 01/14/17 17:13; Admin Dose 650 MG; Start 01/12/17 at 00:30 Morphine Sulfate (morphine) 2 mg Q4H PRN IV PAIN -05/24 Last administered on 14:36; Admin Dose 2 MG; Start 01/12/17 at 00:30 Nicotine (Nicoderm 14 Mg/ 24hr) 1 patch DAILY TRANSDERM Last administered on 09:23; Admin Dose 1 PATCH; Start 01/12/17 at 09:00 Aspirin (Halfprin) 81 mg DAILY PO Last administered on 01/20/17 09:21; Admin Dose 81 MG; Start 01/12/17 at 14:00 Isosorbide Mononitrate (Imdur) 60 mg DAILY PO Last administered on 01/20/17 09: 22; Admin Dose 60 MG; Start 01/12/17 at 14:00 Clopidogrel Bisulfate (plaVIX) 75 mg DAILY PO Last administered on 01/13/17 09: 12; Admin Dose 75 MG; Start 01/12/17 at 14:00; Status Future Hold Lisinopril (Zestril) 5 mg DAILY PO Last administered on 01/20/17 09:22; Admin Dose 5 MG; Start 01/12/17 at 14:00 Atorvastatin Calcium (Lipitor) 20 mg HS PO Last administered on 01/19/17 21:22 ; Admin Dose 20 MG; Start 01/12/17 at 21:00 Ondansetron HCl (Zofran Inj) 4 mg Q6H PRN IV NAUSEA AND/OR VOMITING Last administered on 01/12/17 18:29; Admin Dose 4 MG; Start 01/12/17 at 18:20 Metoprolol Tartrate (Lopressor) 12.5 mg BID PO Last administered on 01/20/17 09 :23; Admin Dose 12.5 MG; Start 01/14/17 at 21:00 KATRIN GRACE Jan 20, 2017 11:39
--- NOTE | 2017-01-20 12:32 | CONS ---
Date/Time of Note Date/Time of Note DATE: 01/20/17 TIME: 12:31 Assessment/Plan Assessment/Plan Chief Complaint/Hosp Course IMPRESSION: 1. Preoperative evaluation in a patient with a history of percutaneous transluminal coronary angioplasty and stent placement prior to possible repair of endovascular leak from an endovascular aortic graft. 2. History of percutaneous transluminal coronary angioplasty and stent placement. 3. Hypertension. Under reasonable control. 4. Bradycardia, borderline. 5. History of abdominal aortic aneurysm, status post endovascular repair, with possible endoleak type 1. 6. Dyslipidemia. 7. Possible angina by medications. 8. Ongoing tobacco usage. 9.Cardiomyopathy-low EF 35-40% by echo/44% by stress. Lexiscan this admit no ischemia but scar. If patient is to go for surgery here would be moderate risk without current cardiac contraindication Recc: -Continue ACEI/isordil -Continue BB as tolerated -pnding surgery for endovscular leak with reccs per vascular for transfer to tertiary care center -Follow volume status closely Problems: Consultation Date/Type/Reason Admit Date/Time Jan 13, 2017 at 09:00 Initial Consult Date 01/14/2017 Type of Consultation: Cardiology Reason for Consultation pre-op/cardiomyopathy Referring Provider: NARCISO REN MD Exam/Review of Systems Vital Signs Vitals Vital Signs Date Time Temp Pulse Resp B/P Pulse Ox O2 Delivery O2 Flow Rate FiO2 01/20/17 07:57 97.8 56 18 119/57 94 01/19/17 08:25 Nasal Cannula 2.0 Intake and Output 01/19/17 01/19/17 01/20/17 15:00 23:00 07:00 Intake Total 720 ml 400 ml Output Total 600 ml 600 ml Balance 120 ml -200 ml Exam Review of Systems: CONSTITUTIONAL: No fevers, chills. PULMONARY: No sob CARDIOVASCULAR: No chest pain/palpitations GASTROINTESTINAL: No nausea/vomiting. GENITOURINARY: No hematuria/dysuria. MUSCULOSKELETAL: No myagias/arthalgias. PSYCHIATRIC: The patient denies depression. NEUROLOGIC: No weakness Constitutional: alert Psych: no complaints Head: normocephalic ENMT: mucosa pink and moist Neck: jvd (9 cm water), supple Respiratory: clear to auscultation Cardiovascular: regular rate and rhythm Gastrointestinal: non-tender, soft Musculoskeletal: muscle tone (normal) Extremities: edema (none) Neurological: other (No focal deficits) Results Result Diagram: 01/19/17 1150 01/19/17 1150 Medications Medications Current Medications Pantoprazole (Protonix Tab) 40 mg DAILY@06 PO Last administered on 01/20/17 05: 44; Admin Dose 40 MG; Start 01/12/17 at 06:00 Bisacodyl (Dulcolax) 10 mg DAILY PRN PO CONSTIPATION; Start 01/12/17 at 00:30 Acetaminophen (Tylenol Tab) 650 mg Q6H PRN PO PAIN AND OR ELEVATED TEMP Last administered on 01/14/17 17:13; Admin Dose 650 MG; Start 01/12/17 at 00:30 Morphine Sulfate (morphine) 2 mg Q4H PRN IV PAIN Last administered on 14:36; Admin Dose 2 MG; Start 01/12/17 at 00:30 Nicotine (Nicoderm 14 Mg/ 24hr) 1 patch DAILY TRANSDERM Last administered on 09:23; Admin Dose 1 PATCH; Start 01/12/17 at 09:00 Aspirin (Halfprin) 81 mg DAILY PO Last administered on 01/20/17 09:21; Admin Dose 81 MG; Start 01/12/17 at 14:00 Isosorbide Mononitrate (Imdur) 60 mg DAILY PO Last administered on 01/20/17 09: 22; Admin Dose 60 MG; Start 01/12/17 at 14:00 Clopidogrel Bisulfate (plaVIX) 75 mg DAILY PO Last administered on 01/13/17 09: 12; Admin Dose 75 MG; Start 01/12/17 at 14:00; Status Future Hold Lisinopril (Zestril) 5 mg DAILY PO Last administered on 01/20/17 09:22; Admin Dose 5 MG; Start 01/12/17 at 14:00 Atorvastatin Calcium (Lipitor) 20 mg HS PO Last administered on 01/19/17 21:22 ; Admin Dose 20 MG; Start 01/12/17 at 21:00 Ondansetron HCl (Zofran Inj) 4 mg Q6H PRN IV NAUSEA AND/OR VOMITING Last administered on 01/12/17 18:29; Admin Dose 4 MG; Start 5/31/17 at 18:20 Metoprolol Tartrate (Lopressor) 12.5 mg BID PO Last administered on 01/20/17t 09 :23; Admin Dose 12.5 MG; Start 01/14/17 at 21:00 ANTONIO LOWE Jan 20, 2017 12:32
[2017-01-20 13:35] VITALS: BP 121/59; PULSE 62; RESP 20
--- NOTE | 2017-01-20 15:11 | RADRPT ---
PROCEDURE: Chest x-ray CLINICAL INDICATION: Shortness of breath TECHNIQUE: Chest single view COMPARISON: 01/18/2017 FINDINGS: The heart is normal in size. The pulmonary vessels are normal in caliber. The lungs are clear. Th e costophrenic angles are sharp. The visualized bony thorax is unremarkable. IMPRESSION: No acute cardiopulmonary disease. Stable minimal atherosclerotic aortic calcification RPTAT: HH .Leonel Zhao MD, MD Date Time Electronically viewed and signed by .Leonel Zhao MD, on 01/20/2017 15:11 .W/
--- NOTE | 2017-01-20 18:06 | PN ---
Date/Time of Note Date/Time of Note DATE: 01/20/17 TIME: 18:05 Assessment/Plan VTE Prophylaxis VTE Prophylaxis Intervention: other Lines/Catheters IV Catheter Type (from Nrs): Saline Lock Urinary Cath still in place: Yes Reason Cath still needed: other (indicate) Assessment/Plan Chief Complaint/Hosp Course IMPRESSION: 1. The patient has lower extremity weakness and back pain.BETTER 2. Rule out vascular insufficiency. 3. Hypertension. 4. History of coronary artery disease. 5. History of percutaneous transluminal coronary angioplasty with stent placement. 6. History of abdominal aortic aneurysm, endovascular stent.NOW ENDOLEAK 7. 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 8 s/p endo leak repair plan per surgery and dr michelle palmer scan seen Problems: Subjective 24 Hr Interval Summary Cardiovascular: no complaints Gastrointestinal: no complaints Genitourinary: no complaints Exam/Review of Systems Vital Signs Vitals Vital Signs Date Time Temp Pulse Resp B/P Pulse Ox O2 Delivery O2 Flow Rate FiO2 01/20/17 13:35 98.3 62 20 121/59 97 Room Air 01/19/17 08:25 2.0 Intake and Output 01/19/17 01/19/17 01/20/17 15:00 23:00 07:00 Intake Total 720 ml 400 ml Output Total 600 ml 600 ml Balance 120 ml -200 ml Exam Respiratory: clear to auscultation Cardiovascular: regular rate and rhythm Gastrointestinal: soft Extremities: No edema Results Result Diagram: 01/19/17 1150 01/19/17 1150 Medications Medications Current Medications Pantoprazole (Protonix Tab) 40 mg DAILY@06 PO Last administered on 01/20/17 05: 44; Admin Dose 40 MG; Start 01/12/17 at 06:00 Bisacodyl (Dulcolax) 10 mg DAILY PRN PO CONSTIPATION; Start 01/12/17 at 00:30 Acetaminophen (Tylenol Tab) 650 mg Q6H PRN PO PAIN AND OR ELEVATED TEMP Last administered on 01/14/17 17:13; Admin Dose 650 MG; Start 01/12/17 at 00:30 Morphine Sulfate (morphine) 2 mg Q4H PRN IV PAIN 7-05/24 Last administered on 14:36; Admin Dose 2 MG; Start 01/12/17 at 00:30 Nicotine (Nicoderm 14 Mg/ 24hr) 1 patch DAILY TRANSDERM Last administered on 09:23; Admin Dose 1 PATCH; Start 01/12/17 at 09:00 Aspirin (Halfprin) 81 mg DAILY PO Last administered on 01/20/17 09:21; Admin Dose 81 MG; Start 01/12/17 at 14:00 Isosorbide Mononitrate (Imdur) 60 mg DAILY PO Last administered on 01/20/17 09: 22; Admin Dose 60 MG; Start 01/12/17 at 14:00 Clopidogrel Bisulfate (plaVIX) 75 mg DAILY PO Last administered on 01/13/17 09: 12; Admin Dose 75 MG; Start 01/12/17 at 14:00; Status Future Hold Lisinopril (Zestril) 5 mg DAILY PO Last administered on 01/20/17 09:22; Admin Dose 5 MG; Start 01/12/17 at 14:00 Atorvastatin Calcium (Lipitor) 20 mg HS PO Last administered on 01/19/17 21:22 ; Admin Dose 20 MG; Start 01/12/17 at 21:00 Ondansetron HCl (Zofran Inj) 4 mg Q6H PRN IV NAUSEA AND/OR VOMITING Last administered on 01/12/17 18:29; Admin Dose 4 MG; Start 01/12/17 at 18:20 Metoprolol Tartrate (Lopressor) 12.5 mg BID PO Last administered on 01/20/17 09 :23; Admin Dose 12.5 MG; Start 01/14/17 at 21:00 NARCISO REN MD Jan 20, 2017 18:06
[2017-01-20 19:14] VITALS: BP 131/64; RESP 19
--- NOTE | 2017-01-20 19:43 | PN ---
Date/Time of Note Date/Time of Note DATE: 01/20/17 TIME: 19:42 Assessment/Plan Lines/Catheters IV Catheter Type (from Nrsg): Saline Lock Rodríguez in Place (from Nrsg): Yes Assessment/Plan Chief Complaint/Hosp Course SP EVAR Type 1 Endo leak Very tortous Iliac artery Will need r open repair or endovascular repair at higher level tertiary canter for repair of type EVAR endoleak discussed with the family and [facility] Problems: Subjective 24 Hr Interval Summary Constitutional: improved Pain Control: mild Exam/Review of Systems Vital Signs Vitals Vital Signs Date Time Temp Pulse Resp B/P Pulse Ox O2 Delivery O2 Flow Rate FiO2 01/20/17 19:14 98.5 68 19 131/64 95 01/20/17 13:35 Room Air 01/19/17 08:25 2.0 Intake and Output 01/19/17 01/19/17 01/20/17 15:00 23:00 07:00 Intake Total 720 ml 400 ml Output Total 600 ml 600 ml Balance 120 ml -200 ml Exam Neck: non-tender, supple Respiratory: clear to auscultation, normal air movement Cardiovascular: nl pulses, regular rate and rhythm Gastrointestinal: nl liver, spleen, non-tender, soft Results Result Diagram: 01/19/17 1150 01/19/17 1150 RAJINDER ADAMS MD Jan 20, 2017 19:43
[2017-01-20] MEDS: ATORVASTATIN 20 MG TAB PO SCH (20:33)
[2017-01-21] MEDS: PANTOPRAZOLE (EC) 40 MG TAB PO SCH (05:37)
[2017-01-21 08:37] VITALS: BP 142/67; RESP 20
[2017-01-21] MEDS: METOPROLOL 25 MG TAB PO SCH ×2 (08:37→21:58)
[2017-01-21] MEDS: ISOSORBIDE MONONITRATE(SR)60 MG TAB PO SCH (08:37)
[2017-01-21] MEDS: ASPIRIN (EC) 81 MG TAB PO SCH (08:37)
[2017-01-21] MEDS: NICOTINE (14 MG/24 HR) PATCH TRANSDERM SCH (08:37)
[2017-01-21] MEDS: LISINOPRIL 5 MG TAB PO SCH (08:37)
--- NOTE | 2017-01-21 13:26 | CONS ---
Date/Time of Note Date/Time of Note DATE: 01/21/17 TIME: 13:24 Assessment/Plan Assessment/Plan Chief Complaint/Hosp Course IMPRESSION: 1. Preoperative evaluation in a patient with a history of percutaneous transluminal coronary angioplasty and stent placement prior to possible repair of endovascular leak from an endovascular aortic graft. 2. History of percutaneous transluminal coronary angioplasty and stent placement. 3. Hypertension. Under reasonable control. 4. Bradycardia, borderline. 5. History of abdominal aortic aneurysm, status post endovascular repair, with possible endoleak type 1. 6. Dyslipidemia. 7. Possible angina by medications. 8. Ongoing tobacco usage. 9.Cardiomyopathy-low EF 35-40% by echo/44% by stress. Lexiscan this admit no ischemia but scar. If patient is to go for surgery here would be moderate risk without current cardiac contraindication Recc: -Continue ACEI/isordil -Continue BB as tolerated -pnding surgery for endovascular leak with reccs per vascular for transfer to tertiary care center -Follow volume status closely Problems: Consultation Date/Type/Reason Admit Date/Time Jan 13, 2017 at 09:00 Initial Consult Date 01/14/2017 Type of Consultation: Cardiology Reason for Consultation preop/cardiomyopathy Referring Provider: NARCISO REN MD Exam/Review of Systems Vital Signs Vitals Vital Signs Date Time Temp Pulse Resp B/P Pulse Ox O2 Delivery O2 Flow Rate FiO2 01/21/17 08:37 98.1 58 20 142/67 92 01/20/17 13:35 Room Air 01/19/17 08:25 2.0 Intake and Output 01/20/17 01/20/17 01/21/17 15:00 23:00 07:00 Intake Total 1400 ml 600 ml Output Total 1000 ml 1200 ml Balance 400 ml -600 ml Exam Review of Systems: CONSTITUTIONAL: No fevers, chills. PULMONARY: No sob CARDIOVASCULAR: No chest pain/palpitations GASTROINTESTINAL: No nausea/vomiting. GENITOURINARY: No hematuria/dysuria. MUSCULOSKELETAL: No myagias/arthalgias. PSYCHIATRIC: The patient denies depression. NEUROLOGIC: No weakness Constitutional: alert Psych: no complaints Head: normocephalic ENMT: mucosa pink and moist Neck: jvd (8 cm water), supple Respiratory: clear to auscultation Cardiovascular: regular rate and rhythm Gastrointestinal: non-tender, soft Musculoskeletal: muscle tone (normal) Extremities: edema (none) Neurological: other (No focal deficits) Results Result Diagram: 01/19/17 1150 01/19/17 1150 Medications Medications Current Medications Pantoprazole (Protonix Tab) 40 mg DAILY@06 PO Last administered on 01/21/17 05: 37; Admin Dose 40 MG; Start 01/12/17 at 06:00 Bisacodyl (Dulcolax) 10 mg DAILY PRN PO CONSTIPATION; Start 01/12/17 at 00:30 Acetaminophen (Tylenol Tab) 650 mg Q6H PRN PO PAIN AND OR ELEVATED TEMP Last administered on 01/14/17 17:13; Admin Dose 650 MG; Start 01/12/17 at 00:30 Morphine Sulfate (morphine) 2 mg Q4H PRN IV PAIN Last administered on 14:36; Admin Dose 2 MG; Start 01/12/17 at 00:30 Nicotine (Nicoderm 14 Mg/ 24hr) 1 patch DAILY TRANSDERM Last administered on 08:37; Admin Dose 1 PATCH; Start 01/12/17 at 09:00 Aspirin (Halfprin) 81 mg DAILY PO Last administered on 01/21/17 08:37; Admin Dose 81 MG; Start 01/12/17 at 14:00 Isosorbide Mononitrate (Imdur) 60 mg DAILY PO Last administered on 01/21/17 08: 37; Admin Dose 60 MG; Start 01/12/17 at 14:00 Clopidogrel Bisulfate (plaVIX) 75 mg DAILY PO Last administered on 01/13/17 09: 12; Admin Dose 75 MG; Start 01/12/17 at 14:00; Status Future Hold Lisinopril (Zestril) 5 mg DAILY PO Last administered on 01/21/17 08:37; Admin Dose 5 MG; Start 01/12/17 at 14:00 Atorvastatin Calcium (Lipitor) 20 mg HS PO Last administered on 01/20/17 20:33 ; Admin Dose 20 MG; Start 01/12/17 at 21:00 Ondansetron HCl (Zofran Inj) 4 mg Q6H PRN IV NAUSEA AND/OR VOMITING Last administered on 01/12/17 18:29; Admin Dose 4 MG; Start 01/12/17 at 18:20 Metoprolol Tartrate (Lopressor) 12.5 mg BID PO Last administered on 01/21/17t 08 :37; Admin Dose 12.5 MG; Start 01/14/17 at 21:00 ANTONIO LOWE Jan 21, 2017 13:26
--- NOTE | 2017-01-21 15:36 | PN ---
Date/Time of Note Date/Time of Note DATE: 01/21/17 TIME: 15:35 Assessment/Plan Lines/Catheters IV Catheter Type (from Nrsg): Saline Lock Rodríguez in Place (from Nrsg): Yes Assessment/Plan Chief Complaint/Hosp Course SP EVAR Type 1 Endo leak Very tortous Iliac artery Will need r open repair or endovascular repair at higher level tertiary canter for repair of type EVAR endoleak discussed with the family and Dr Law Problems: Subjective 24 Hr Interval Summary Constitutional: improved Pain Control: mild Exam/Review of Systems Vital Signs Vitals Vital Signs Date Time Temp Pulse Resp B/P Pulse Ox O2 Delivery O2 Flow Rate FiO2 01/21/17 08:37 98.1 58 20 142/67 92 01/20/17 13:35 Room Air 01/19/17 08:25 2.0 Intake and Output 01/20/17 01/20/17 01/21/17 15:00 23:00 07:00 Intake Total 1400 ml 600 ml Output Total 1000 ml 1200 ml Balance 400 ml -600 ml Exam ENMT: mucosa pink and moist, nl external ears & nose, nl lips & teeth, nl nasal mucosa & septum Neck: non-tender, supple Respiratory: clear to auscultation, normal air movement Cardiovascular: nl pulses, regular rate and rhythm Gastrointestinal: nl liver, spleen, non-tender, soft Results Result Diagram: 01/19/17 1150 01/19/17 1150 RAJINDER ADAMS MD Jan 21, 2017 15:36
--- NOTE | 2017-01-21 16:56 | PN ---
Date/Time of Note Date/Time of Note DATE: 01/21/17 TIME: 16:55 Assessment/Plan VTE Prophylaxis VTE Prophylaxis Intervention: SCD's Lines/Catheters IV Catheter Type (from Nrsg): Saline Lock Urinary Cath still in place: Yes Reason Cath still needed: urinary retention Assessment/Plan Chief Complaint/Hosp Course 1. The patient has lower extremity weakness and back pain, better. 2. Rule out vascular insufficiency. 3. Hypertension. 4. History of coronary artery disease. 5. History of percutaneous transluminal coronary angioplasty with stent placement. 6. History of abdominal aortic aneurysm, endovascular stent. 7. 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 8. S/p endo leak repair Problems: Assessment/Plan 1. placement to tertiary center for endo leak repair Subjective 24 Hr Interval Summary Constitutional: no complaints Exam/Review of Systems Vital Signs Vitals Vital Signs Date Time Temp Pulse Resp B/P Pulse Ox O2 Delivery O2 Flow Rate FiO2 01/21/17 08:37 98.1 58 20 142/67 92 01/20/17 13:35 Room Air 01/19/17 08:25 2.0 Intake and Output 01/20/17 01/20/17 01/21/17 15:00 23:00 07:00 Intake Total 1400 ml 600 ml Output Total 1000 ml 1200 ml Balance 400 ml -600 ml Exam Constitutional: alert Psych: no complaints Eyes: nl conjunctiva ENMT: nl external ears & nose Respiratory: clear to auscultation Cardiovascular: regular rate and rhythm Results Result Diagram: 01/19/17 1150 01/19/17 1150 Medications Medications Current Medications Pantoprazole (Protonix Tab) 40 mg DAILY@06 PO Last administered on 01/21/17 05: 37; Admin Dose 40 MG; Start 01/12/17 at 06:00 Bisacodyl (Dulcolax) 10 mg DAILY PRN PO CONSTIPATION; Start 01/12/17 at 00:30 Acetaminophen (Tylenol Tab) 650 mg Q6H PRN PO PAIN AND OR ELEVATED TEMP Last administered on 01/14/17 17:13; Admin Dose 650 MG; Start 01/12/17 at 00:30 Morphine Sulfate (morphine) 2 mg Q4H PRN IV PAIN 7-05/24 Last administered on 14:36; Admin Dose 2 MG; Start 01/12/17 at 00:30 Nicotine (Nicoderm 14 Mg/ 24hr) 1 patch DAILY TRANSDERM Last administered on 08:37; Admin Dose 1 PATCH; Start 01/12/17 at 09:00 Aspirin (Halfprin) 81 mg DAILY PO Last administered on 01/21/17 08:37; Admin Dose 81 MG; Start 01/12/17 at 14:00 Isosorbide Mononitrate (Imdur) 60 mg DAILY PO Last administered on 01/21/17 08: 37; Admin Dose 60 MG; Start 01/12/17 at 14:00 Clopidogrel Bisulfate (plaVIX) 75 mg DAILY PO Last administered on 01/13/17 09: 12; Admin Dose 75 MG; Start 01/12/17 at 14:00; Status Future Hold Lisinopril (Zestril) 5 mg DAILY PO Last administered on 01/21/17 08:37; Admin Dose 5 MG; Start 01/12/17 at 14:00 Atorvastatin Calcium (Lipitor) 20 mg HS PO Last administered on 01/20/17 20:33 ; Admin Dose 20 MG; Start 01/12/17 at 21:00 Ondansetron HCl (Zofran Inj) 4 mg Q6H PRN IV NAUSEA AND/OR VOMITING Last administered on 01/12/17 18:29; Admin Dose 4 MG; Start 01/12/17 at 18:20 Metoprolol Tartrate (Lopressor) 12.5 mg BID PO Last administered on 01/21/17 08 :37; Admin Dose 12.5 MG; Start 01/14/17 at 21:00 LUCHO LYNN Jan 21, 2017 16:56
[2017-01-21 20:30] VITALS: BP 145/66; RESP 19
[2017-01-21] MEDS: ATORVASTATIN 20 MG TAB PO SCH (21:57)
[2017-01-22] MEDS: PANTOPRAZOLE (EC) 40 MG TAB PO SCH (05:41)
[2017-01-22 08:27] VITALS: BP 141/67; RESP 20
[2017-01-22] MEDS: NICOTINE (14 MG/24 HR) PATCH TRANSDERM SCH (09:34)
[2017-01-22 09:35] VITALS: BP 145/67; PULSE 66
[2017-01-22] MEDS: METOPROLOL 25 MG TAB PO SCH ×2 (09:35→21:42)
[2017-01-22] MEDS: LISINOPRIL 5 MG TAB PO SCH (09:36)
[2017-01-22] MEDS: ASPIRIN (EC) 81 MG TAB PO SCH (09:36)
[2017-01-22] MEDS: ISOSORBIDE MONONITRATE(SR)60 MG TAB PO SCH (09:36)
--- NOTE | 2017-01-22 11:59 | CONS ---
Date/Time of Note Date/Time of Note DATE: 01/22/17 TIME: 11:58 Assessment/Plan Assessment/Plan Chief Complaint/Hosp Course IMPRESSION: 1. Preoperative evaluation in a patient with a history of percutaneous transluminal coronary angioplasty and stent placement prior to possible repair of endovascular leak from an endovascular aortic graft. 2. History of percutaneous transluminal coronary angioplasty and stent placement. 3. Hypertension. Under reasonable control. 4. Bradycardia, borderline. 5. History of abdominal aortic aneurysm, status post endovascular repair, with possible endoleak type 1. 6. Dyslipidemia. 7. Possible angina by medications. 8. Ongoing tobacco usage. 9.Cardiomyopathy-low EF 35-40% by echo/44% by stress. Lexiscan this admit no ischemia but scar. If patient is to go for surgery here would be moderate risk without current cardiac contraindication Recc: -Continue ACEI/isordil witrh slight increase to improve BP control -Continue BB as tolerated -pnding surgery for endovascular leak with reccs per vascular for transfer to tertiary care center -Follow volume status closely Problems: Consultation Date/Type/Reason Admit Date/Time Jan 13, 2017 at 09:00 Initial Consult Date 01/14/2017 Type of Consultation: Cardiology Reason for Consultation preop Referring Provider: NARCISO REN MD Exam/Review of Systems Vital Signs Vitals Vital Signs Date Time Temp Pulse Resp B/P Pulse Ox O2 Delivery O2 Flow Rate FiO2 01/22/17 09:35 66 145/67 01/22/17 08:27 97.7 20 100 01/20/17 13:35 Room Air 01/19/17 08:25 2.0 Intake and Output 01/21/17 01/21/17 01/22/17 15:00 23:00 07:00 Intake Total 1340 ml 480 ml Output Total 500 ml 600 ml Balance 840 ml -120 ml Exam Review of Systems: CONSTITUTIONAL: No fevers, chills. PULMONARY: No sob CARDIOVASCULAR: No chest pain/palpitations GASTROINTESTINAL: No nausea/vomiting. GENITOURINARY: No hematuria/dysuria. MUSCULOSKELETAL: No myagias/arthalgias. PSYCHIATRIC: The patient denies depression. NEUROLOGIC: lethargic Constitutional: alert Psych: no complaints Head: normocephalic ENMT: mucosa pink and moist Neck: jvd (9 cm water), supple Respiratory: diminished breath sounds (at bases/B) Cardiovascular: regular rate and rhythm Gastrointestinal: non-tender Musculoskeletal: muscle weakness (generalized) Extremities: edema (none) Neurological: lethargic Results Result Diagram: 01/19/17 1150 01/19/17 1150 Medications Medications Current Medications Pantoprazole (Protonix Tab) 40 mg DAILY@06 PO Last administered on 01/22/17 05 :41; Admin Dose 40 MG; Start 01/12/17 at 06:00 Bisacodyl (Dulcolax) 10 mg DAILY PRN PO CONSTIPATION; Start 01/12/17 at 00:30 Acetaminophen (Tylenol Tab) 650 mg Q6H PRN PO PAIN AND OR ELEVATED TEMP Last administered on 01/14/17 17:13; Admin Dose 650 MG; Start 01/12/17 at 00:30 Morphine Sulfate (morphine) 2 mg Q4H PRN IV PAIN Last administered on 14:36; Admin Dose 2 MG; Start 01/12/17 at 00:30 Nicotine (Nicoderm 14 Mg/ 24hr) 1 patch DAILY TRANSDERM Last administered on 09:34; Admin Dose 1 PATCH; Start 01/12/17 at 09:00 Aspirin (Halfprin) 81 mg DAILY PO Last administered on 01/22/17 09:36; Admin Dose 81 MG; Start 01/12/17 at 14:00 Isosorbide Mononitrate (Imdur) 60 mg DAILY PO Last administered on 01/22/17 09 :36; Admin Dose 60 MG; Start 01/12/17 at 14:00 Clopidogrel Bisulfate (plaVIX) 75 mg DAILY PO Last administered on 01/13/17 09: 12; Admin Dose 75 MG; Start 01/12/17 at 14:00; Status Future Hold Lisinopril (Zestril) 5 mg DAILY PO Last administered on 01/22/17 09:36; Admin Dose 5 MG; Start 01/12/17 at 14:00 Atorvastatin Calcium (Lipitor) 20 mg HS PO Last administered on 01/21/17 21:57 ; Admin Dose 20 MG; Start 01/12/17 at 21:00 Ondansetron HCl (Zofran Inj) 4 mg Q6H PRN IV NAUSEA AND/OR VOMITING Last administered on 01/12/17 18:29; Admin Dose 4 MG; Start 01/12/17 at 18:20 Metoprolol Tartrate (Lopressor) 12.5 mg BID PO Last administered on 01/22/17 09:35; Admin Dose 12.5 MG; Start 01/14/17 at 21:00 ANTONIO LOWE Jan 22, 2017 11:59
--- NOTE | 2017-01-22 12:33 | PN ---
Date/Time of Note Date/Time of Note DATE: 01/22/17 TIME: 12:33 Assessment/Plan VTE Prophylaxis VTE Prophylaxis Intervention: SCD's Lines/Catheters IV Catheter Type (from Nrsg): Saline Lock Urinary Cath still in place: Yes Reason Cath still needed: urinary retention Assessment/Plan Chief Complaint/Hosp Course 1. The patient has lower extremity weakness and back pain, better. 2. Rule out vascular insufficiency. 3. Hypertension. 4. History of coronary artery disease. 5. History of percutaneous transluminal coronary angioplasty with stent placement. 6. History of abdominal aortic aneurysm, endovascular stent. 7. 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 8. S/p endo leak repair Problems: Assessment/Plan 1. transfer for higher level of care Subjective 24 Hr Interval Summary Constitutional: no complaints Skin: other (pain in legs) Exam/Review of Systems Vital Signs Vitals Vital Signs Date Time Temp Pulse Resp B/P Pulse Ox O2 Delivery O2 Flow Rate FiO2 01/22/17 09:35 66 145/67 01/22/17 08:27 97.7 20 100 01/20/17 13:35 Room Air 01/19/17 08:25 2.0 Intake and Output 01/21/17 01/21/17 01/22/17 15:00 23:00 07:00 Intake Total 1340 ml 480 ml Output Total 500 ml 600 ml Balance 840 ml -120 ml Exam Constitutional: alert, oriented Respiratory: clear to auscultation Cardiovascular: regular rate and rhythm Results Result Diagram: 01/19/17 1150 01/19/17 1150 Medications Medications Current Medications Pantoprazole (Protonix Tab) 40 mg DAILY@06 PO Last administered on 01/22/17 05 :41; Admin Dose 40 MG; Start 01/12/17 at 06:00 Bisacodyl (Dulcolax) 10 mg DAILY PRN PO CONSTIPATION; Start 01/12/17 at 00:30 Acetaminophen (Tylenol Tab) 650 mg Q6H PRN PO PAIN AND OR ELEVATED TEMP Last administered on 01/14/17 17:13; Admin Dose 650 MG; Start 01/12/17 at 00:30 Morphine Sulfate (morphine) 2 mg Q4H PRN IV PAIN Last administered on 14:36; Admin Dose 2 MG; Start 01/12/17 at 00:30 Nicotine (Nicoderm 14 Mg/ 24hr) 1 patch DAILY TRANSDERM Last administered on 09:34; Admin Dose 1 PATCH; Start 01/12/17 at 09:00 Aspirin (Halfprin) 81 mg DAILY PO Last administered on 01/22/17 09:36; Admin Dose 81 MG; Start 01/12/17 at 14:00 Isosorbide Mononitrate (Imdur) 60 mg DAILY PO Last administered on 01/22/17 09 :36; Admin Dose 60 MG; Start 01/12/17 at 14:00 Clopidogrel Bisulfate (plaVIX) 75 mg DAILY PO Last administered on 01/13/17 09: 12; Admin Dose 75 MG; Start 01/12/17 at 14:00; Status Future Hold Atorvastatin Calcium (Lipitor) 20 mg HS PO Last administered on 01/21/17 21:57 ; Admin Dose 20 MG; Start 01/12/17 at 21:00 Ondansetron HCl (Zofran Inj) 4 mg Q6H PRN IV NAUSEA AND/OR VOMITING Last administered on 01/12/17 18:29; Admin Dose 4 MG; Start 01/12/17 at 18:20 Metoprolol Tartrate (Lopressor) 12.5 mg BID PO Last administered on 01/22/17 09:35; Admin Dose 12.5 MG; Start 01/14/17 at 21:00 Lisinopril (Zestril) 10 mg DAILY PO ; Start 01/23/17 at 09:00 LUCHO LYNN Jan 22, 2017 12:33
[2017-01-22 19:43] VITALS: BP 123/58; PULSE 66; RESP 17
[2017-01-22] MEDS: ATORVASTATIN 20 MG TAB PO SCH (21:42)
[2017-01-23 05:09] LABS: ADD SCAN DIFF NO
[2017-01-23 05:10] LABS: BASOPHIL # 0.1 10^3/ul (0.0-0.1); EOSINOPHILS # 0.4 10^3/ul (0.0-0.5); EOSINOPHILS % 4.7 % (0.0-7.0); HEMATOCRIT 38.3 % (42.0-52.0); HEMOGLOBIN 12.5 g/dl (14.0-18.0); LYMPHOCYTES # 2.2 10^3/ul (0.8-2.9); LYMPHOCYTES % 24.4 % (15.0-51.0); MEAN CORPUSCULAR HEMOGLOBIN 32.6 pg (29.0-33.0); MEAN CORPUSCULAR HGB CONC 32.6 g/dl (32.0-37.0); MEAN PLATELET VOLUME 10.6 fl (7.4-10.4); MONOCYTE # 0.7 10^3/ul (0.3-0.9); MONOCYTES % 7.7 % (0.0-11.0); NEUTROPHIL # 5.5 10^3/ul (1.6-7.5); NEUTROPHILS % 61.9 % (39.0-77.0); PLATELET COUNT 288 10^3/UL (140-415); RED BLOOD COUNT 3.83 10^6/ul (4.70-6.10); RED CELL DISTRIBUTION WIDTH 13.2 % (11.5-14.5); WHITE BLOOD COUNT 8.9 10^3/ul (4.8-10.8)
[2017-01-23] MEDS: PANTOPRAZOLE (EC) 40 MG TAB PO SCH (05:31)
[2017-01-23 05:43] LABS: CALCIUM 9.2 mg/dl (8.4-10.2); CREATININE 0.85 mg/dl (0.61-1.24); POTASSIUM 3.9 mmol/L (3.5-5.1)
[2017-01-23 07:55] VITALS: BP 149/72; RESP 16
[2017-01-23] MEDS: NICOTINE (14 MG/24 HR) PATCH TRANSDERM SCH (10:31)
[2017-01-23] MEDS: ISOSORBIDE MONONITRATE(SR)60 MG TAB PO SCH (10:32)
[2017-01-23] MEDS: ASPIRIN (EC) 81 MG TAB PO SCH (10:32)
[2017-01-23] MEDS: LISINOPRIL 10 MG TAB PO SCH (10:32)
[2017-01-23] MEDS: METOPROLOL 25 MG TAB PO SCH ×2 (10:34→20:50)
--- NOTE | 2017-01-23 12:21 | CONS ---
Date/Time of Note Date/Time of Note DATE: 01/23/17 TIME: 12:19 Assessment/Plan Assessment/Plan Chief Complaint/Hosp Course IMPRESSION: 1. Preoperative evaluation in a patient with a history of percutaneous transluminal coronary angioplasty and stent placement prior to possible repair of endovascular leak from an endovascular aortic graft. 2. History of percutaneous transluminal coronary angioplasty and stent placement. 3. Hypertension. Under reasonable control. 4. Bradycardia, borderline. 5. History of abdominal aortic aneurysm, status post endovascular repair, with possible endoleak type 1. 6. Dyslipidemia. 7. Possible angina by medications. 8. Ongoing tobacco usage. 9.Cardiomyopathy-low EF 35-40% by echo/44% by stress. Lexiscan this admit no ischemia but scar. If patient is to go for surgery here would be moderate risk without current cardiac contraindication Recc: -Continue current ACEI/isordil -Continue BB as tolerated -pnding surgery for endovascular leak with reccs per vascular for transfer to tertiary care center -Follow volume status closely Problems: Consultation Date/Type/Reason Admit Date/Time Jan 13, 2017 at 09:00 Initial Consult Date 01/14/2017 Type of Consultation: Cardiology Reason for Consultation Pre-op Referring Provider: NARCISO REN MD Exam/Review of Systems Vital Signs Vitals Vital Signs Date Time Temp Pulse Resp B/P Pulse Ox O2 Delivery O2 Flow Rate FiO2 01/23/17 07:55 97.8 56 16 149/72 95 01/22/17 19:43 Room Air 01/19/17 08:25 2.0 Intake and Output 01/22/17 01/22/17 01/23/17 15:00 23:00 07:00 Intake Total 480 ml Output Total 600 ml Balance -120 ml Exam Review of Systems: CONSTITUTIONAL: No fevers, chills. PULMONARY: No sob CARDIOVASCULAR: No chest pain/palpitations GASTROINTESTINAL: No nausea/vomiting. GENITOURINARY: No hematuria/dysuria. MUSCULOSKELETAL: No myagias/arthalgias. PSYCHIATRIC: The patient denies depression. NEUROLOGIC: lethargic Constitutional: alert Psych: no complaints Head: normocephalic ENMT: mucosa pink and moist Neck: jvd (8-9 cm water), supple Respiratory: diminished breath sounds (at bases/B) Cardiovascular: regular rate and rhythm Gastrointestinal: non-tender, soft Musculoskeletal: muscle weakness (generalized) Extremities: edema (none) Neurological: lethargic Results Result Diagram: 01/23/17 0440 01/23/17 0440 Results 24 hrs Laboratory Tests Test 01/23/17 04:40 White Blood Count 8.9 Red Blood Count 3.83 L Hemoglobin 12.5 L Hematocrit 38.3 L Mean Corpuscular Volume 100.0 Mean Corpuscular Hemoglobin 32.6 Mean Corpuscular Hemoglobin Concent 32.6 Red Cell Distribution Width 13.2 Platelet Count 288 Mean Platelet Volume 10.6 H Neutrophils % 61.9 Lymphocytes % 24.4 Monocytes % 7.7 Eosinophils % 4.7 Basophils % 1.0 Nucleated Red Blood Cells % 0.0 Neutrophils # 5.5 Lymphocytes # 2.2 Monocytes # 0.7 Eosinophils # 0.4 Basophils # 0.1 Nucleated Red Blood Cells # 0.0 Sodium Level 142 Potassium Level 3.9 Chloride Level 107 Carbon Dioxide Level 27 Anion Gap 12 Blood Urea Nitrogen 14 Creatinine 0.85 Glucose Level 101 Calcium Level 9.2 Medications Medications Current Medications Pantoprazole (Protonix Tab) 40 mg DAILY@06 PO Last administered on 01/23/17 05 :31; Admin Dose 40 MG; Start 01/12/17 at 06:00 Bisacodyl (Dulcolax) 10 mg DAILY PRN PO CONSTIPATION; Start 01/12/17 at 00:30 Acetaminophen (Tylenol Tab) 650 mg Q6H PRN PO PAIN AND OR ELEVATED TEMP Last administered on 01/14/17 17:13; Admin Dose 650 MG; Start 01/12/17 at 00:30 Morphine Sulfate (morphine) 2 mg Q4H PRN IV PAIN Last administered on 14:36; Admin Dose 2 MG; Start 01/12/17 at 00:30 Nicotine (Nicoderm 14 Mg/ 24hr) 1 patch DAILY TRANSDERM Last administered on 10:31; Admin Dose 1 PATCH; Start 01/12/17 at 09:00 Aspirin (Halfprin) 81 mg DAILY PO Last administered on 01/23/17 10:32; Admin Dose 81 MG; Start 01/12/17 at 14:00 Isosorbide Mononitrate (Imdur) 60 mg DAILY PO Last administered on 01/23/17 10 :32; Admin Dose 60 MG; Start 01/12/17 at 14:00 Clopidogrel Bisulfate (plaVIX) 75 mg DAILY PO Last administered on 01/13/17 09: 12; Admin Dose 75 MG; Start 01/12/17 at 14:00; Status Future Hold Atorvastatin Calcium (Lipitor) 20 mg HS PO Last administered on 01/22/17 21:42 ; Admin Dose 20 MG; Start 01/12/17 at 21:00 Ondansetron HCl (Zofran Inj) 4 mg Q6H PRN IV NAUSEA AND/OR VOMITING Last administered on 01/12/17 18:29; Admin Dose 4 MG; Start 01/12/17 at 18:20 Metoprolol Tartrate (Lopressor) 12.5 mg BID PO Last administered on 01/23/17 10:34; Admin Dose 12.5 MG; Start 01/14/17 at 21:00 Lisinopril (Zestril) 10 mg DAILY PO Last administered on 01/23/17 10:32; Admin Dose 10 MG; Start 01/23/17 at 09:00 ANTONIO LOWE Jan 23, 2017 12:21
--- NOTE | 2017-01-23 16:04 | PN ---
Date/Time of Note Date/Time of Note DATE: 01/23/17 TIME: 16:03 Assessment/Plan VTE Prophylaxis VTE Prophylaxis Intervention: other Lines/Catheters [facility] Saline Lock Urinary Cath still in place: Yes Reason Cath still needed: other (indicate) Assessment/Plan Chief Complaint/Hosp Course IMPRESSION: 1. The patient has lower extremity weakness and back pain.BETTER 2. Rule out vascular insufficiency. 3. Hypertension. 4. History of coronary artery disease. 5. History of percutaneous transluminal coronary angioplasty with stent placement. 6. History of abdominal aortic aneurysm, endovascular stent.NOW ENDOLEAK 7. 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 8 s/p endo leak repair plan waiting to be tranfered to [facility] Problems: Subjective 24 Hr Interval Summary Cardiovascular: no complaints Gastrointestinal: no complaints Exam/Review of Systems Vital Signs Vitals Vital Signs Date Time Temp Pulse Resp B/P Pulse Ox O2 Delivery O2 Flow Rate FiO2 01/23/17 07:55 97.8 56 16 149/72 95 01/22/17 19:43 Room Air 01/19/17 08:25 2.0 Intake and Output 01/22/17 01/22/17 01/23/17 15:00 23:00 07:00 Intake Total 480 ml Output Total 600 ml Balance -120 ml Exam Respiratory: clear to auscultation Cardiovascular: regular rate and rhythm Gastrointestinal: soft Musculoskeletal: nl extremities to inspection Extremities: normal pulses Results Result Diagram: 01/23/170 01/23/17 0440 Results 24 hrs Laboratory Tests Test 01/23/17 04:40 White Blood Count 8.9 Red Blood Count 3.83 L Hemoglobin 12.5 L Hematocrit 38.3 L Mean Corpuscular Volume 100.0 Mean Corpuscular Hemoglobin 32.6 Mean Corpuscular Hemoglobin Concent 32.6 Red Cell Distribution Width 13.2 Platelet Count 288 Mean Platelet Volume 10.6 H Neutrophils % 61.9 Lymphocytes % 24.4 Monocytes % 7.7 Eosinophils % 4.7 Basophils % 1.0 Nucleated Red Blood Cells % 0.0 Neutrophils # 5.5 Lymphocytes # 2.2 Monocytes # 0.7 Eosinophils # 0.4 Basophils # 0.1 Nucleated Red Blood Cells # 0.0 Sodium Level 142 Potassium Level 3.9 Chloride Level 107 Carbon Dioxide Level 27 Anion Gap 12 Blood Urea Nitrogen 14 Creatinine 0.85 Glucose Level 101 Calcium Level 9.2 Medications Medications Current Medications Pantoprazole (Protonix Tab) 40 mg DAILY@06 PO Last administered on 01/23/17 05 :31; Admin Dose 40 MG; Start 01/12/17 at 06:00 Bisacodyl (Dulcolax) 10 mg DAILY PRN PO CONSTIPATION; Start 01/12/17 at 00:30 Acetaminophen (Tylenol Tab) 650 mg Q6H PRN PO PAIN AND OR ELEVATED TEMP Last administered on 01/14/17 17:13; Admin Dose 650 MG; Start 01/12/17 at 00:30 Morphine Sulfate (morphine) 2 mg Q4H PRN IV PAIN -05/24 Last administered on 14:36; Admin Dose 2 MG; Start 01/12/17 at 00:30 Nicotine (Nicoderm 14 Mg/ 24hr) 1 patch DAILY TRANSDERM Last administered on 10:31; Admin Dose 1 PATCH; Start 01/12/17 at 09:00 Aspirin (Halfprin) 81 mg DAILY PO Last administered on 01/23/17 10:32; Admin Dose 81 MG; Start 01/12/17 at 14:00 Isosorbide Mononitrate (Imdur) 60 mg DAILY PO Last administered on 01/23/17 10 :32; Admin Dose 60 MG; Start 01/12/17 at 14:00 Clopidogrel Bisulfate (plaVIX) 75 mg DAILY PO Last administered on 01/13/17 09: 12; Admin Dose 75 MG; Start 01/12/17 at 14:00; Status Future Hold Atorvastatin Calcium (Lipitor) 20 mg HS PO Last administered on 01/22/17 21:42 ; Admin Dose 20 MG; Start 01/12/17 at 21:00 Ondansetron HCl (Zofran Inj) 4 mg Q6H PRN IV NAUSEA AND/OR VOMITING Last administered on 01/12/17 18:29; Admin Dose 4 MG; Start 01/12/17 at 18:20 Metoprolol Tartrate (Lopressor) 12.5 mg BID PO Last administered on 01/23/17 10:34; Admin Dose 12.5 MG; Start 01/14/17 at 21:00 Lisinopril (Zestril) 10 mg DAILY PO Last administered on 01/23/17 10:32; Admin Dose 10 MG; Start 01/23/17 at 09:00 NARCISO REN MD Jan 23, 2017 16:04
[2017-01-23 19:52] VITALS: BP 127/59; RESP 16
[2017-01-23] MEDS: ATORVASTATIN 20 MG TAB PO SCH (20:49)
[2017-01-24] MEDS: PANTOPRAZOLE (EC) 40 MG TAB PO SCH (06:04)
[2017-01-24 08:21] VITALS: BP 139/63; RESP 19
[2017-01-24] MEDS: METOPROLOL 25 MG TAB PO SCH ×3 (09:00→22:14)
[2017-01-24] MEDS: ASPIRIN (EC) 81 MG TAB PO SCH (09:29)
[2017-01-24] MEDS: ISOSORBIDE MONONITRATE(SR)60 MG TAB PO SCH (09:29)
[2017-01-24] MEDS: LISINOPRIL 10 MG TAB PO SCH (09:30)
[2017-01-24] MEDS: NICOTINE (14 MG/24 HR) PATCH TRANSDERM SCH (09:31)
--- NOTE | 2017-01-24 15:23 | CONS ---
Date/Time of Note Date/Time of Note DATE: 01/24/17 TIME: 15:22 Assessment/Plan Assessment/Plan Chief Complaint/Hosp Course IMPRESSION: 1. Preoperative evaluation in a patient with a history of percutaneous transluminal coronary angioplasty and stent placement prior to possible repair of endovascular leak from an endovascular aortic graft. 2. History of percutaneous transluminal coronary angioplasty and stent placement. 3. Hypertension. Under reasonable control. 4. Bradycardia, borderline. 5. History of abdominal aortic aneurysm, status post endovascular repair, with possible endoleak type 1. 6. Dyslipidemia. 7. Possible angina by medications. 8. Ongoing tobacco usage. 9.Cardiomyopathy-low EF 35-40% by echo/44% by stress. Lexiscan this admit no ischemia but scar. If patient is to go for surgery here would be moderate risk without current cardiac contraindication Recc: -Continue current ACEI/isordil -Continue BB as tolerated -pnding surgery for endovascular leak with reccs per vascular for transfer to tertiary care center -Follow volume status closely -Awaiting transfer to tertiary care center Problems: Consultation Date/Type/Reason Admit Date/Time Jan 13, 2017 at 09:00 Initial Consult Date 01/14/2017 Type of Consultation: Cardiology Reason for Consultation pre-op Referring Provider: NARCISO REN MD Exam/Review of Systems Vital Signs Vitals Vital Signs Date Time Temp Pulse Resp B/P Pulse Ox O2 Delivery O2 Flow Rate FiO2 01/24/17 08:21 98.4 54 19 139/63 96 01/22/17 19:43 Room Air Intake and Output 01/23/17 01/23/17 01/24/17 15:00 23:00 07:00 Intake Total 700 ml 400 ml Output Total 750 ml Balance 700 ml -350 ml Exam Review of Systems: CONSTITUTIONAL: No fevers, chills. PULMONARY: No sob CARDIOVASCULAR: No chest pain/palpitations GASTROINTESTINAL: No nausea/vomiting. GENITOURINARY: No hematuria/dysuria. MUSCULOSKELETAL: No myagias/arthalgias. PSYCHIATRIC: The patient denies depression. NEUROLOGIC: No weakness Constitutional: alert Psych: no complaints Head: normocephalic ENMT: mucosa pink and moist Neck: jvd (8-9 cm water), supple Respiratory: diminished breath sounds (at bases/B) Cardiovascular: regular rate and rhythm Gastrointestinal: non-tender, soft Musculoskeletal: muscle tone (normal) Extremities: edema (none) Neurological: other (No focal deficits) Results Result Diagram: 01/23/17 0440 01/23/17 0440 Medications Medications Current Medications Pantoprazole (Protonix Tab) 40 mg DAILY@06 PO Last administered on 01/24/17 06 :04; Admin Dose 40 MG; Start 01/12/17 at 06:00 Bisacodyl (Dulcolax) 10 mg DAILY PRN PO CONSTIPATION; Start 01/12/17 at 00:30 Acetaminophen (Tylenol Tab) 650 mg Q6H PRN PO PAIN AND OR ELEVATED TEMP Last administered on 01/14/17 17:13; Admin Dose 650 MG; Start 01/12/17 at 00:30 Morphine Sulfate (morphine) 2 mg Q4H PRN IV PAIN Last administered on 14:36; Admin Dose 2 MG; Start 01/12/17 at 00:30 Nicotine (Nicoderm 14 Mg/ 24hr) 1 patch DAILY TRANSDERM Last administered on 09:31; Admin Dose 1 PATCH; Start 01/12/17 at 09:00 Aspirin (Halfprin) 81 mg DAILY PO Last administered on 01/24/17 09:29; Admin Dose 81 MG; Start 01/12/17 at 14:00 Isosorbide Mononitrate (Imdur) 60 mg DAILY PO Last administered on 01/24/17 09 :29; Admin Dose 60 MG; Start 01/12/17 at 14:00 Clopidogrel Bisulfate (plaVIX) 75 mg DAILY PO Last administered on 01/13/17 09: 12; Admin Dose 75 MG; Start 01/12/17 at 14:00; Status Future Hold Atorvastatin Calcium (Lipitor) 20 mg HS PO Last administered on 01/23/17 20:49 ; Admin Dose 20 MG; Start 01/12/17 at 21:00 Ondansetron HCl (Zofran Inj) 4 mg Q6H PRN IV NAUSEA AND/OR VOMITING Last administered on 01/12/17 18:29; Admin Dose 4 MG; Start 01/12/17 at 18:20 Metoprolol Tartrate (Lopressor) 12.5 mg BID PO Last administered on 01/23/17 20:50; Admin Dose 12.5 MG; Start 01/14/17 at 21:00 Lisinopril (Zestril) 10 mg DAILY PO Last administered on 01/24/17t 09:30; Admin Dose 10 MG; Start 01/23/17 at 09:00 ANTONIO LOWE Jan 24, 2017 15:23
--- NOTE | 2017-01-24 17:35 | PN ---
Date/Time of Note Date/Time of Note DATE: 01/24/17 TIME: 17:34 Assessment/Plan VTE Prophylaxis VTE Prophylaxis Intervention: other Lines/Catheters IV Catheter Type (from Nrs): Saline Lock Urinary Cath still in place: Yes Reason Cath still needed: other (indicate) Assessment/Plan Chief Complaint/Hosp Course IMPRESSION: 1. The patient has lower extremity weakness and back pain.BETTER 2. Rule out vascular insufficiency. 3. Hypertension. 4. History of coronary artery disease. 5. History of percutaneous transluminal coronary angioplasty with stent placement. 6. History of abdominal aortic aneurysm, endovascular stent.NOW ENDOLEAK 7. 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 8 s/p endo leak repair plan waiting to be tranfered to [facility] LEVEL OF C[facility] Problems: Subjective 24 Hr Interval Summary Cardiovascular: no complaints Gastrointestinal: no complaints Exam/Review of Systems Vital Signs Vitals Vital Signs Date Time Temp Pulse Resp B/P Pulse Ox O2 Delivery O2 Flow Rate FiO2 01/24/17 08:21 98.4 54 19 139/63 96 01/22/17 19:43 Room Air Intake and Output 01/23/17 01/23/17 01/24/17 15:00 23:00 07:00 Intake Total 700 ml 400 ml Output Total 750 ml Balance 700 ml -350 ml Exam Respiratory: clear to auscultation Cardiovascular: regular rate and rhythm Gastrointestinal: soft Musculoskeletal: nl extremities to inspection Results Result Diagram: 01/23/170 01/23/17 044 Medications Medications Current Medications Pantoprazole (Protonix Tab) 40 mg DAILY@06 PO Last administered on 01/24/17 06 :04; Admin Dose 40 MG; Start 01/12/17 at 06:00 Bisacodyl (Dulcolax) 10 mg DAILY PRN PO CONSTIPATION; Start 01/12/17 at 00:30 Acetaminophen (Tylenol Tab) 650 mg Q6H PRN PO PAIN AND OR ELEVATED TEMP Last administered on 01/14/17 17:13; Admin Dose 650 MG; Start 01/12/17 at 00:30 Morphine Sulfate (morphine) 2 mg Q4H PRN IV PAIN 7-05/24 Last administered on 14:36; Admin Dose 2 MG; Start 01/12/17 at 00:30 Nicotine (Nicoderm 14 Mg/ 24hr) 1 patch DAILY TRANSDERM Last administered on 09:31; Admin Dose 1 PATCH; Start 01/12/17 at 09:00 Aspirin (Halfprin) 81 mg DAILY PO Last administered on 01/24/17 09:29; Admin Dose 81 MG; Start 01/12/17 at 14:00 Isosorbide Mononitrate (Imdur) 60 mg DAILY PO Last administered on 01/24/17 09 :29; Admin Dose 60 MG; Start 01/12/17 at 14:00 Clopidogrel Bisulfate (plaVIX) 75 mg DAILY PO Last administered on 01/13/17 09: 12; Admin Dose 75 MG; Start 01/12/17 at 14:00; Status Future Hold Atorvastatin Calcium (Lipitor) 20 mg HS PO Last administered on 01/23/17 20:49 ; Admin Dose 20 MG; Start 01/12/17 at 21:00 Ondansetron HCl (Zofran Inj) 4 mg Q6H PRN IV NAUSEA AND/OR VOMITING Last administered on 01/12/17 18:29; Admin Dose 4 MG; Start 01/12/17 at 18:20 Metoprolol Tartrate (Lopressor) 12.5 mg BID PO Last administered on 01/23/17 20:50; Admin Dose 12.5 MG; Start 01/14/17 at 21:00 Lisinopril (Zestril) 10 mg DAILY PO Last administered on 01/24/17 09:30; Admin Dose 10 MG; Start 01/23/17 at 09:00 NARCISO REN MD Jan 24, 2017 17:35
[2017-01-24] MEDS: ATORVASTATIN 20 MG TAB PO SCH ×2 (21:00→22:14)
[2017-01-24 21:02] VITALS: BP 123/66; RESP 18
[2017-01-25] MEDS: PANTOPRAZOLE (EC) 40 MG TAB PO SCH (05:28)
[2017-01-25 07:59] VITALS: BP 126/62; RESP 19
[2017-01-25] MEDS: METOPROLOL 25 MG TAB PO SCH ×2 (08:24→20:11)
[2017-01-25] MEDS: LISINOPRIL 10 MG TAB PO SCH (08:27)
[2017-01-25] MEDS: ASPIRIN (EC) 81 MG TAB PO SCH (08:27)
[2017-01-25] MEDS: ISOSORBIDE MONONITRATE(SR)60 MG TAB PO SCH (08:27)
[2017-01-25] MEDS: NICOTINE (14 MG/24 HR) PATCH TRANSDERM SCH (08:27)
--- NOTE | 2017-01-25 10:09 | CONS ---
Date/Time of Note Date/Time of Note DATE: 01/25/17 TIME: 10:07 Assessment/Plan Assessment/Plan Additional Assessment/Plan 1. Preoperative evaluation in a patient with a history of percutaneous transluminal coronary angioplasty and stent placement prior to possible repair of endovascular leak from an endovascular aortic graft.- stable now 2. History of percutaneous transluminal coronary angioplasty and stent placement- no CP, no intervention planned 3. Hypertension. Under reasonable control - con't Med rx 4. Bradycardia, borderline - rate controlled 5. History of abdominal aortic aneurysm, status post endovascular repair, with possible endoleak type 1 - vascular follows 6. Dyslipidemia. 7. Possible angina by medications. 8. Ongoing tobacco usage. 9.Cardiomyopathy-low EF 35-40% by echo/44% by stress. Lexiscan this admit no ischemia but scar. If patient is to go for surgery here would be moderate risk without current cardiac contraindication Consultation Date/Type/Reason Admit Date/Time Jan 13, 2017 at 09:00 Type of Consultation: Cardiology Referring Provider: NARCISO REN MD 24 HR Interval Summary Free Text/Dictation NO acute change - off tele - vascular team follows ROS: No fever, no chills, no nausea, no vomiting, no diarrhea/constipation No recent weight changes No chest pain, no PND, no orthopnea No dizziness, blurred vision No thirst, no heat or cold intolerance Exam/Review of Systems Vital Signs Vitals Vital Signs Date Time Temp Pulse Resp B/P Pulse Ox O2 Delivery O2 Flow Rate FiO2 01/25/17 07:59 98.0 54 19 126/62 92 01/22/17 19:43 Room Air Intake and Output 01/24/17 01/24/17 01/25/17 15:00 23:00 07:00 Intake Total 560 ml 480 ml Output Total 400 ml Balance 160 ml 480 ml Exam General: WN/WD/NAD, AOx 3 HEENT: Unicetric/atraumatic/EOMI (follow commands) NECK: JVD elevated, no thyromegaly Lymph: no lymphadenopathy HEART: regular with no S3, II/ systolic murmur at apex LUNGS: Coarse sounds ABD: soft, NT, ND, +BS : Intact Neuro: non focal SKIN: chronic changes EXT: trace edema Results Result Diagram: 01/23/1743901/23/17439 Medications Medications Current Medications Pantoprazole (Protonix Tab) 40 mg DAILY@06 PO Last administered on 01/25/17 05 :28; Admin Dose 40 MG; Start 01/12/17 at 06:00 Bisacodyl (Dulcolax) 10 mg DAILY PRN PO CONSTIPATION; Start 01/12/17 at 00:30 Acetaminophen (Tylenol Tab) 650 mg Q6H PRN PO PAIN AND OR ELEVATED TEMP Last administered on 01/14/17 17:13; Admin Dose 650 MG; Start 01/12/17 at 00:30 Morphine Sulfate (morphine) 2 mg Q4H PRN IV PAIN -05/24 Last administered on 14:36; Admin Dose 2 MG; Start 01/12/17 at 00:30 Nicotine (Nicoderm 14 Mg/ 24hr) 1 patch DAILY TRANSDERM Last administered on 08:27; Admin Dose 1 PATCH; Start 01/12/17 at 09:00 Aspirin (Halfprin) 81 mg DAILY PO Last administered on 01/25/17 08:27; Admin Dose 81 MG; Start 01/12/17 at 14:00 Isosorbide Mononitrate (Imdur) 60 mg DAILY PO Last administered on 01/25/17 08 :27; Admin Dose 60 MG; Start 01/12/17 at 14:00 Clopidogrel Bisulfate (plaVIX) 75 mg DAILY PO Last administered on 01/13/17 09: 12; Admin Dose 75 MG; Start 01/12/17 at 14:00; Status Future Hold Atorvastatin Calcium (Lipitor) 20 mg HS PO Last administered on 01/24/17 22:14 ; Admin Dose 20 MG; Start 01/12/17 at 21:00 Ondansetron HCl (Zofran Inj) 4 mg Q6H PRN IV NAUSEA AND/OR VOMITING Last administered on 01/12/17 18:29; Admin Dose 4 MG; Start 01/12/17 at 18:20 Metoprolol Tartrate (Lopressor) 12.5 mg BID PO Last administered on 01/24/17 22:14; Admin Dose 12.5 MG; Start 01/14/17 at 21:00 Lisinopril (Zestril) 10 mg DAILY PO Last administered on 01/25/17 08:27; Admin Dose 10 MG; Start 01/23/17 at 09:00 SIN SERRANO MD Jan 25, 2017 10:09
[2017-01-25] MEDS: ATORVASTATIN 20 MG TAB PO SCH (20:08)
[2017-01-25 20:19] VITALS: BP 125/70; RESP 18
--- NOTE | 2017-01-26 00:16 | PN ---
Date/Time of Note Date/Time of Note DATE: 01/26/17 TIME: 00:15 Assessment/Plan VTE Prophylaxis VTE Prophylaxis Intervention: other Lines/Catheters IV Catheter Type (from Nrs): Saline Lock Urinary Cath still in place: Yes Reason Cath still needed: other (indicate) Assessment/Plan Chief Complaint/Hosp Course IMPRESSION: 1. The patient has lower extremity weakness and back pain.BETTER 2. Rule out vascular insufficiency. 3. Hypertension. 4. History of coronary artery disease. 5. History of percutaneous transluminal coronary angioplasty with stent placement. 6. History of abdominal aortic aneurysm, endovascular stent.NOW ENDOLEAK 7. 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 8 s/p endo leak repair plan waiting to be tranfered to HIGHER LEVEL OF CARE Problems: Subjective 24 Hr Interval Summary Gastrointestinal: no complaints Genitourinary: no complaints Musculoskeletal: no complaints Exam/Review of Systems Vital Signs Vitals Vital Signs Date Time Temp Pulse Resp B/P Pulse Ox O2 Delivery O2 Flow Rate FiO2 01/25/17 20:19 97.7 70 18 125/70 95 01/22/17 19:43 Room Air Intake and Output 01/25/17 01/25/17 01/26/17 15:00 23:00 07:00 Intake Total 1080 ml Balance 1080 ml Exam Respiratory: clear to auscultation Cardiovascular: regular rate and rhythm Gastrointestinal: soft Musculoskeletal: nl extremities to inspection Extremities: normal pulses Results Result Diagram: 01/23/1743901/23/17439 Medications Medications Current Medications Pantoprazole (Protonix Tab) 40 mg DAILY@06 PO Last administered on 01/25/17 05 :28; Admin Dose 40 MG; Start 01/12/17 at 06:00 Bisacodyl (Dulcolax) 10 mg DAILY PRN PO CONSTIPATION; Start 01/12/17 at 00:30 Acetaminophen (Tylenol Tab) 650 mg Q6H PRN PO PAIN AND OR ELEVATED TEMP Last administered on 01/14/17 17:13; Admin Dose 650 MG; Start 01/12/17 at 00:30 Morphine Sulfate (morphine) 2 mg Q4H PRN IV PAIN 7-05/24 Last administered on 14:36; Admin Dose 2 MG; Start 01/12/17 at 00:30 Nicotine (Nicoderm 14 Mg/ 24hr) 1 patch DAILY TRANSDERM Last administered on 08:27; Admin Dose 1 PATCH; Start 01/12/17 at 09:00 Aspirin (Halfprin) 81 mg DAILY PO Last administered on 01/25/17 08:27; Admin Dose 81 MG; Start 01/12/17 at 14:00 Isosorbide Mononitrate (Imdur) 60 mg DAILY PO Last administered on 01/25/17 08 :27; Admin Dose 60 MG; Start 01/12/17 at 14:00 Clopidogrel Bisulfate (plaVIX) 75 mg DAILY PO Last administered on 01/13/17 09: 12; Admin Dose 75 MG; Start 01/12/17 at 14:00; Status Future Hold Atorvastatin Calcium (Lipitor) 20 mg HS PO Last administered on 01/25/17 20:08 ; Admin Dose 20 MG; Start 01/12/17 at 21:00 Ondansetron HCl (Zofran Inj) 4 mg Q6H PRN IV NAUSEA AND/OR VOMITING Last administered on 01/12/17 18:29; Admin Dose 4 MG; Start 01/12/17 at 18:20 Metoprolol Tartrate (Lopressor) 12.5 mg BID PO Last administered on 01/25/17 20:11; Admin Dose 12.5 MG; Start 01/14/17 at 21:00 Lisinopril (Zestril) 10 mg DAILY PO Last administered on 01/25/17 08:27; Admin Dose 10 MG; Start 01/23/17 at 09:00 NARCISO REN MD Jan 26, 2017 00:16
[2017-01-26] MEDS: PANTOPRAZOLE (EC) 40 MG TAB PO SCH (06:08)
[2017-01-26 07:00] VITALS: BP 129/61; RESP 20
[2017-01-26] MEDS: METOPROLOL 25 MG TAB PO SCH ×2 (09:00→20:32)
[2017-01-26] MEDS: ASPIRIN (EC) 81 MG TAB PO SCH (09:30)
[2017-01-26] MEDS: ISOSORBIDE MONONITRATE(SR)60 MG TAB PO SCH (09:30)
[2017-01-26] MEDS: LISINOPRIL 10 MG TAB PO SCH (09:34)
[2017-01-26] MEDS: NICOTINE (14 MG/24 HR) PATCH TRANSDERM SCH (09:34)
--- NOTE | 2017-01-26 14:43 | CONS ---
Date/Time of Note Date/Time of Note DATE: 01/26/17 TIME: 14:42 Assessment/Plan Assessment/Plan Chief Complaint/Hosp Course IMPRESSION: 1. Preoperative evaluation in a patient with a history of percutaneous transluminal coronary angioplasty and stent placement prior to possible repair of endovascular leak from an endovascular aortic graft. 2. History of percutaneous transluminal coronary angioplasty and stent placement. 3. Hypertension. Under reasonable control. 4. Bradycardia, borderline. 5. History of abdominal aortic aneurysm, status post endovascular repair, with possible endoleak type 1. 6. Dyslipidemia. 7. Possible angina by medications. 8. Ongoing tobacco usage. 9.Cardiomyopathy-low EF 35-40% by echo/44% by stress. Lexiscan this admit no ischemia but scar. If patient is to go for surgery here would be moderate risk without current cardiac contraindication Recc: -Continue current ACEI/isordil -Continue BB as tolerated -pnding surgery for endovascular leak with reccs per vascular for transfer to tertiary care center -Follow volume status closely -Awaiting transfer to tertiary care center Problems: Consultation Date/Type/Reason Admit Date/Time Jan 13, 2017 at 09:00 Initial Consult Date 01/14/2017 Type of Consultation: Cardiology Reason for Consultation Pre-op Referring Provider: NARCISO REN MD Exam/Review of Systems Vital Signs Vitals Vital Signs Date Time Temp Pulse Resp B/P Pulse Ox O2 Delivery O2 Flow Rate FiO2 01/26/17 07:00 97.9 50 20 129/61 96 01/22/17 19:43 Room Air Intake and Output 01/25/17 01/25/17 01/26/17 15:00 23:00 07:00 Intake Total 1080 ml 500 ml Balance 1080 ml 500 ml Exam Review of Systems: CONSTITUTIONAL: No fevers, chills. PULMONARY: No sob CARDIOVASCULAR: No chest pain/palpitations GASTROINTESTINAL: No nausea/vomiting. GENITOURINARY: No hematuria/dysuria. MUSCULOSKELETAL: No myagias/arthalgias. PSYCHIATRIC: The patient denies depression. NEUROLOGIC: No weakness Constitutional: alert Psych: no complaints Head: normocephalic ENMT: mucosa pink and moist Neck: jvd (9 cm water), supple Respiratory: diminished breath sounds (at bases/B) Cardiovascular: regular rate and rhythm Gastrointestinal: non-tender, soft Musculoskeletal: muscle tone (normal) Extremities: other (None) Neurological: lethargic Results Result Diagram: 01/23/17 0440 01/23/17 0440 Medications Medications Current Medications Pantoprazole (Protonix Tab) 40 mg DAILY@06 PO Last administered on 01/26/17 06 :08; Admin Dose 40 MG; Start 01/12/17 at 06:00 Bisacodyl (Dulcolax) 10 mg DAILY PRN PO CONSTIPATION; Start 01/12/17 at 00:30 Acetaminophen (Tylenol Tab) 650 mg Q6H PRN PO PAIN AND OR ELEVATED TEMP Last administered on 01/14/17 17:13; Admin Dose 650 MG; Start 01/12/17 at 00:30 Morphine Sulfate (morphine) 2 mg Q4H PRN IV PAIN -05/24 Last administered on 14:36; Admin Dose 2 MG; Start 01/12/17 at 00:30 Nicotine (Nicoderm 14 Mg/ 24hr) 1 patch DAILY TRANSDERM Last administered on 09:34; Admin Dose 1 PATCH; Start 01/12/17 at 09:00 Aspirin (Halfprin) 81 mg DAILY PO Last administered on 01/26/17 09:30; Admin Dose 81 MG; Start 01/12/17 at 14:00 Isosorbide Mononitrate (Imdur) 60 mg DAILY PO Last administered on 01/26/17 09 :30; Admin Dose 60 MG; Start 01/12/17 at 14:00 Clopidogrel Bisulfate (plaVIX) 75 mg DAILY PO Last administered on 01/13/17 09: 12; Admin Dose 75 MG; Start 01/12/17 at 14:00; Status Future Hold Atorvastatin Calcium (Lipitor) 20 mg HS PO Last administered on 01/25/17 20:08 ; Admin Dose 20 MG; Start 01/12/17 at 21:00 Ondansetron HCl (Zofran Inj) 4 mg Q6H PRN IV NAUSEA AND/OR VOMITING Last administered on 01/12/17 18:29; Admin Dose 4 MG; Start 01/12/17 at 18:20 Metoprolol Tartrate (Lopressor) 12.5 mg BID PO Last administered on 01/25/17 20:11; Admin Dose 12.5 MG; Start 01/14/17 at 21:00 Lisinopril (Zestril) 10 mg DAILY PO Last administered on 01/26/17t 09:34; Admin Dose 10 MG; Start 01/23/17 at 09:00 ANTONIO LOWE Jan 26, 2017 14:43
--- NOTE | 2017-01-26 19:31 | PN ---
Date/Time of Note Date/Time of Note DATE: 01/26/17 TIME: 19:31 Assessment/Plan VTE Prophylaxis VTE Prophylaxis Intervention: other Lines/Catheters IV Catheter Type (from Nrs): Saline Lock Urinary Cath still in place: Yes Reason Cath still needed: other (indicate) Assessment/Plan Chief Complaint/Hosp Course IMPRESSION: 1. The patient has lower extremity weakness and back pain.BETTER 2. Rule out vascular insufficiency. 3. Hypertension. 4. History of coronary artery disease. 5. History of percutaneous transluminal coronary angioplasty with stent placement. 6. History of abdominal aortic aneurysm, endovascular stent.NOW ENDOLEAK 7. 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 8 s/p endo leak repair plan waiting to be tranfered to HIGHER LEVEL OF CARE Problems: Subjective 24 Hr Interval Summary Cardiovascular: no complaints Gastrointestinal: no complaints Exam/Review of Systems Vital Signs Vitals Vital Signs Date Time Temp Pulse Resp B/P Pulse Ox O2 Delivery O2 Flow Rate FiO2 01/26/17 07:00 97.9 50 20 129/61 96 01/22/17 19:43 Room Air Intake and Output 01/25/17 01/25/17 01/26/17 15:00 23:00 07:00 Intake Total 1080 ml 500 ml Balance 1080 ml 500 ml Exam Respiratory: clear to auscultation Cardiovascular: regular rate and rhythm Gastrointestinal: soft Musculoskeletal: nl extremities to inspection Results Result Diagram: 01/23/1743901/23/17 0440 Medications Medications Current Medications Pantoprazole (Protonix Tab) 40 mg DAILY@06 PO Last administered on 01/26/17 06 :08; Admin Dose 40 MG; Start 01/12/17 at 06:00 Bisacodyl (Dulcolax) 10 mg DAILY PRN PO CONSTIPATION; Start 01/12/17 at 00:30 Acetaminophen (Tylenol Tab) 650 mg Q6H PRN PO PAIN AND OR ELEVATED TEMP Last administered on 01/14/17 17:13; Admin Dose 650 MG; Start 01/12/17 at 00:30 Morphine Sulfate (morphine) 2 mg Q4H PRN IV PAIN 7-05/24 Last administered on 14:36; Admin Dose 2 MG; Start 01/12/17 at 00:30 Nicotine (Nicoderm 14 Mg/ 24hr) 1 patch DAILY TRANSDERM Last administered on 09:34; Admin Dose 1 PATCH; Start 01/12/17 at 09:00 Aspirin (Halfprin) 81 mg DAILY PO Last administered on 01/26/17 09:30; Admin Dose 81 MG; Start 01/12/17 at 14:00 Isosorbide Mononitrate (Imdur) 60 mg DAILY PO Last administered on 01/26/17 09 :30; Admin Dose 60 MG; Start 01/12/17 at 14:00 Clopidogrel Bisulfate (plaVIX) 75 mg DAILY PO Last administered on 01/13/17 09: 12; Admin Dose 75 MG; Start 01/12/17 at 14:00; Status Future Hold Atorvastatin Calcium (Lipitor) 20 mg HS PO Last administered on 01/25/17 20:08 ; Admin Dose 20 MG; Start 01/12/17 at 21:00 Ondansetron HCl (Zofran Inj) 4 mg Q6H PRN IV NAUSEA AND/OR VOMITING Last administered on 01/12/17 18:29; Admin Dose 4 MG; Start 01/12/17 at 18:20 Metoprolol Tartrate (Lopressor) 12.5 mg BID PO Last administered on 01/25/17 20:11; Admin Dose 12.5 MG; Start 01/14/17 at 21:00 Lisinopril (Zestril) 10 mg DAILY PO Last administered on 01/26/17 09:34; Admin Dose 10 MG; Start 01/23/17 at 09:00 NARCISO REN MD Jan 26, 2017 19:31
[2017-01-26 19:39] VITALS: BP 118/62; RESP 18
[2017-01-26] MEDS: ATORVASTATIN 20 MG TAB PO SCH (20:31)
[2017-01-27] MEDS: PANTOPRAZOLE (EC) 40 MG TAB PO SCH (06:13)
[2017-01-27 08:08] VITALS: BP 131/61; RESP 17
[2017-01-27] MEDS: ASPIRIN (EC) 81 MG TAB PO SCH (09:19)
[2017-01-27] MEDS: NICOTINE (14 MG/24 HR) PATCH TRANSDERM SCH (09:19)
[2017-01-27] MEDS: ISOSORBIDE MONONITRATE(SR)60 MG TAB PO SCH (09:20)
[2017-01-27] MEDS: METOPROLOL 25 MG TAB PO SCH ×2 (09:21→21:00)
[2017-01-27] MEDS: LISINOPRIL 10 MG TAB PO SCH (09:21)
[2017-01-27 09:22] VITALS: BP 123/65; PULSE 61; RESP 18
--- NOTE | 2017-01-27 13:07 | CONS ---
Date/Time of Note Date/Time of Note DATE: 01/27/17 TIME: 13:06 Assessment/Plan Assessment/Plan Chief Complaint/Hosp Course IMPRESSION: 1. Preoperative evaluation in a patient with a history of percutaneous transluminal coronary angioplasty and stent placement prior to possible repair of endovascular leak from an endovascular aortic graft. 2. History of percutaneous transluminal coronary angioplasty and stent placement. 3. Hypertension. Under reasonable control. 4. Bradycardia, borderline. 5. History of abdominal aortic aneurysm, status post endovascular repair, with possible endoleak type 1. 6. Dyslipidemia. 7. Possible angina by medications. 8. Ongoing tobacco usage. 9.Cardiomyopathy-low EF 35-40% by echo/44% by stress. Lexiscan this admit no ischemia but scar. If patient is to go for surgery here would be moderate risk without current cardiac contraindication Recc: -Continue current ACEI/isordil -Continue BB as tolerated -pnding surgery for endovascular leak with reccs per vascular for transfer to tertiary care center -Follow volume status closely -Awaiting transfer to tertiary care center Problems: Consultation Date/Type/Reason Admit Date/Time Jan 13, 2017 at 09:00 Initial Consult Date 01/14/2017 Type of Consultation: Cardiology Reason for Consultation Pre-op Referring Provider: NARCISO REN MD Exam/Review of Systems Vital Signs Vitals Vital Signs Date Time Temp Pulse Resp B/P Pulse Ox O2 Delivery O2 Flow Rate FiO2 01/27/17 09:22 61 18 123/65 98 Room Air 01/27/17 08:08 97.5 Intake and Output 01/26/17 01/26/17 01/27/17 15:00 23:00 07:00 Intake Total 1100 ml 600 ml Output Total 850 ml 1200 ml Balance 250 ml -600 ml Exam Review of Systems: CONSTITUTIONAL: No fevers, chills. PULMONARY: No sob CARDIOVASCULAR: No chest pain/palpitations GASTROINTESTINAL: No nausea/vomiting. GENITOURINARY: No hematuria/dysuria. MUSCULOSKELETAL: No myagias/arthalgias. PSYCHIATRIC: The patient denies depression. NEUROLOGIC: No weakness Constitutional: alert Psych: no complaints Head: normocephalic ENMT: mucosa pink and moist Neck: jvd (9 cm water), supple Respiratory: diminished breath sounds (at bases/B) Cardiovascular: regular rate and rhythm Gastrointestinal: non-tender, soft Musculoskeletal: muscle tone (normal) Extremities: edema (none) Neurological: other (No focal deficits) Results Result Diagram: 01/23/17 0440 01/23/17 0440 Medications Medications Current Medications Pantoprazole (Protonix Tab) 40 mg DAILY@06 PO Last administered on 01/27/17 06 :13; Admin Dose 40 MG; Start 01/12/17 at 06:00 Bisacodyl (Dulcolax) 10 mg DAILY PRN PO CONSTIPATION; Start 01/12/17 at 00:30 Acetaminophen (Tylenol Tab) 650 mg Q6H PRN PO PAIN AND OR ELEVATED TEMP Last administered on 01/14/17 17:13; Admin Dose 650 MG; Start 01/12/17 at 00:30 Morphine Sulfate (morphine) 2 mg Q4H PRN IV PAIN Last administered on 14:36; Admin Dose 2 MG; Start 01/12/17 at 00:30 Nicotine (Nicoderm 14 Mg/ 24hr) 1 patch DAILY TRANSDERM Last administered on 09:19; Admin Dose 1 PATCH; Start 01/12/17 at 09:00 Aspirin (Halfprin) 81 mg DAILY PO Last administered on 01/27/17 09:19; Admin Dose 81 MG; Start 01/12/17 at 14:00 Isosorbide Mononitrate (Imdur) 60 mg DAILY PO Last administered on 01/27/17 09 :20; Admin Dose 60 MG; Start 01/12/17 at 14:00 Clopidogrel Bisulfate (plaVIX) 75 mg DAILY PO Last administered on 01/13/17 09: 12; Admin Dose 75 MG; Start 01/12/17 at 14:00; Status Future Hold Atorvastatin Calcium (Lipitor) 20 mg HS PO Last administered on 01/26/17 20:31 ; Admin Dose 20 MG; Start 01/12/17 at 21:00 Ondansetron HCl (Zofran Inj) 4 mg Q6H PRN IV NAUSEA AND/OR VOMITING Last administered on 01/12/17 18:29; Admin Dose 4 MG; Start 01/12/17 at 18:20 Metoprolol Tartrate (Lopressor) 12.5 mg BID PO Last administered on 01/27/17 09:21; Admin Dose 12.5 MG; Start 01/14/17 at 21:00 Lisinopril (Zestril) 10 mg DAILY PO Last administered on 01/27/17t 09:21; Admin Dose 10 MG; Start 01/23/17 at 09:00 ANTONIO LOWE Jan 27, 2017 13:07
--- NOTE | 2017-01-27 18:12 | QN ---
Documentation Comment [id number] NARCISO REN MD Jan 27, 2017 18:12
[2017-01-27 19:05] VITALS: BP 132/62; RESP 18
[2017-01-27] MEDS: ATORVASTATIN 20 MG TAB PO SCH (21:49)
--- NOTE | 2017-01-27 23:08 | DS ---
DATE OF ADMISSION: 01/13/2017 DATE OF DISCHARGE: TRANSFER SUMMARY HOSPITAL COURSE: The patient, Sarkis Iglesias, was admitted with a diagnosis of abdominal pain. The patient was seen by Dr. Golden in consultation. His impression, abdominal aortic aneurysm status post endovascular repair, bilateral iliac artery aneurysm. The patient underwent ultrasound of the aorta , shows large abdominal aortic aneurysm. The patient had abdominal CT scan done , shows increase in size of the aorta and bilateral common iliac artery aneurysms with endovascular stent in place. The patient has lumbar spine CT scan, shows multilevel degenerative spondylosis with trace anterolisthesis of L4 -5, aortoiliac aneurysm with endovascular stent in place. 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 The patient had extremity ultrasound of the lower extremity, widely patent fem-fem bypass graft. The patient had Lexiscan done that shows ejection fraction 44%, small to moderate size, predominantly nonreversible perfusion defect. The patient cannot have surgery for aortic aneurysm leak. Transferred this patient to [facility] per family. He will be going to [place]. TRANSFER DIAGNOSES: Include: 1. Hypertension. 2. History of abdominal aortic aneurysm status post endovascular repair with possible endovascular leak. 3. Dyslipidemia. 4. Cardiac ejection fraction low at 44%. 5. The patient has history of percutaneous transluminal coronary angioplasty and stent placement. 6. Anemia. DISCHARGE MEDICATIONS: The patient to continue on: 1. Aspirin. 2. Lipitor. 3. Bisacodyl. 4. Plavix. 5. Isosorbide. 6. Lisinopril. 7. Metoprolol. 8. Morphine. 9. Nicotine. 10. Zofran. 11. Protonix. DISPOSITION: The patient will be transferred to [facility]. The patient is stable at the time of transfer. Dictated By: NARCISO REN MD BS/NTS Conf#: [id number] DID#: [id number] [facility]
[2017-01-27 23:16] VITALS: BP 124/60; PULSE 53; RESP 18
[2017-01-28] MEDS: PANTOPRAZOLE (EC) 40 MG TAB PO SCH (06:42)
[2017-01-28 08:43] VITALS: BP 134/64; PULSE 50; RESP 18
[2017-01-28] MEDS: ASPIRIN (EC) 81 MG TAB PO SCH (08:45)
[2017-01-28] MEDS: ISOSORBIDE MONONITRATE(SR)60 MG TAB PO SCH (08:45)
[2017-01-28] MEDS: NICOTINE (14 MG/24 HR) PATCH TRANSDERM SCH (08:46)
[2017-01-28] MEDS: LISINOPRIL 10 MG TAB PO SCH (08:46)
[2017-01-28] MEDS: METOPROLOL 25 MG TAB PO SCH (08:47)
== END 2017-01-28 12:15 | disposition short-term general hospital (02) | DRG 315 ==
LOC: E/R 16:03 → MS1 20:19 → OBSVTOIN 01-13 09:00
PROVIDERS: ADMIT Internal Medicine Nephrology; ATTEND Internal Medicine Nephrology
PROC: B41F1ZZ Fluoroscopy of Right Lower Extremity Arteries using Low Osmolar Contrast (ICD-10-PCS; 2017-01-18)
PROC: 04JY3ZZ Inspection of Lower Artery, Percutaneous Approach (ICD-10-PCS; principal; 2017-01-18 17:00)
DX: T82.330A Leakage of aortic (bifurcation) graft (replacement), initial encounter (principal); I42.9 Cardiomyopathy, unspecified; R00.1 Bradycardia, unspecified; I72.3 Aneurysm of iliac artery; I71.4 Abdominal aortic aneurysm, without rupture; I25.10 Atherosclerotic heart disease of native coronary artery without angina pectoris; E78.5 Hyperlipidemia, unspecified; D64.9 Anemia, unspecified; F17.200 Nicotine dependence, unspecified, uncomplicated; Y83.2 Surgical operation with anastomosis, bypass or graft as the cause of abnormal reaction of the patient, or of later complication, without mention of misadventure at the time of the procedure; M54.9 Dorsalgia, unspecified; R53.1 Weakness; I25.2 Old myocardial infarction; Z86.73 Personal history of transient ischemic attack (TIA), and cerebral infarction without residual deficits
CPT/HCPCS: 36415; 71010; 72131; 74176; 74177; 75630; 76775; 78452; 80048; 80053; 80061; 84484; 85025; 85610; 85730; 86850; 86900; 86901; 86920; 87086; 93005; 93017; 93306; 93922; A9500; A9505; C1725; G0378; J0360; J0690; J1644; J2270; J2405; J2710; J2785; J3010; J7999; Q9967

== ENCOUNTER 2017-03-04 16:37 | Emergency (ER) | payer MEDICARE, OTHER ==
[~2017-03-04] VITALS: Wt 59.5 kg
[2017-03-04] MEDS ORDERED: ISOS30TA5 PO (20:34)
[2017-03-04] MEDS ORDERED: ATOR20TA38 PO (20:34)
[2017-03-04 21:00] LABS: BASOPHIL # 0.1 10^3/ul (0.0-0.1); BASOPHILS % 0.7 % (0.0-2.0); EOSINOPHILS # 0.4 10^3/ul (0.0-0.5); EOSINOPHILS % 4.2 % (0.0-7.0); HEMATOCRIT 33.5 % (42.0-52.0); HEMOGLOBIN 10.7 g/dl (14.0-18.0); LYMPHOCYTES # 2.8 10^3/ul (0.8-2.9); LYMPHOCYTES % 31.1 % (15.0-51.0); MEAN CORPUSCULAR HEMOGLOBIN 31.8 pg (29.0-33.0); MEAN CORPUSCULAR HGB CONC 31.9 g/dl (32.0-37.0); MEAN CORPUSCULAR VOLUME 99.7 fl (82.0-101.0); MEAN PLATELET VOLUME 10.5 fl (7.4-10.4); MONOCYTE # 0.6 10^3/ul (0.3-0.9); MONOCYTES % 6.9 % (0.0-11.0); NEUTROPHIL # 5.2 10^3/ul (1.6-7.5); NEUTROPHILS % 56.7 % (39.0-77.0); PLATELET COUNT 230 10^3/UL (140-415); POSITIVE DIFF @See below; RED BLOOD COUNT 3.36 10^6/ul (4.70-6.10); RED CELL DISTRIBUTION WIDTH 14.2 % (11.5-14.5); WHITE BLOOD COUNT 9.1 10^3/ul (4.8-10.8)
[2017-03-04 21:11] LABS: ADD UMIC YES; UR ASCORBIC ACID NEGATIVE (NEGATIVE); UR BACTERIA FEW /HPF (NONE SEEN); UR BILIRUBIN (Dip) NEGATIVE (NEGATIVE); UR BLOOD (Dip) 3+ mg/dL (NEGATIVE); UR CLARITY CLOUDY (CLEAR); UR COLOR YELLOW (YELLOW); UR GLUCOSE (Dip) NEGATIVE (NEGATIVE); UR KETONES (Dip) NEGATIVE (NEGATIVE); UR LEUKOCYTE ESTERASE (Dip) 3+ Leu/ul (NEGATIVE); UR NITRITE (Dip) NEGATIVE (NEGATIVE); UR RBC 61 /HPF (0-5); UR TOTAL PROTEIN (Dip) NEGATIVE (NEGATIVE); UR UROBILINOGEN (Dip) NEGATIVE (NEGATIVE)
[2017-03-04 21:23] LABS: CALCIUM 9.2 mg/dl (8.4-10.2); CREATININE 0.86 mg/dl (0.61-1.24); POTASSIUM 4.2 mmol/L (3.5-5.1)
[2017-03-04] MEDS ORDERED: LIDOCAINE 1% (MDV) 20 ML INJ ONE (22:08)
[2017-03-04] MEDS ORDERED: NITR-58 PO (22:23)
--- NOTE | 2017-03-04 22:29 | ERD ---
ER Documentation Chief Complaint Date/Time DATE: 03/04/17 TIME: 22:26 Chief Complaint URINE PROBLEM X 2 DAYS HPI This 81-year-old male is complaining of 2 days of dysuria with thick occasional blood streaking when he voids. He says he is able to void without any difficulty but is having frequency and dysuria. 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 He is not having abdominal or back pain. Patient states he is not having any inability to void. He says he does have a little bit of suprapubic pain at this time. ROS All systems reviewed and are negative except as per history of present illness. Medications Home Meds Active Scripts Nitrofurantoin Monohyd Macrocr* (Macrobid*) 100 Mg Capsr, 100 MG PO BID for 10 Days, CAP Prov:HARIS KIRKPATRICK DO 03/04/17 Reported Medications Atorvastatin Calcium* (Atorvastatin Calcium*) 20 Mg Tablet, 20 MG PO QHS, #30 TAB 03/04/17 Isosorbide Mononitrate* (Isosorbide Mononitrate*) 30 Mg Tab.er.24h, 30 MG PO DAILY, TAB 03/04/17 Lisinopril* (Lisinopril*) 5 Mg Tablet, 5 MG PO DAILY, TAB 11/29/14 Discontinued Reported Medications Simvastatin (Simvastatin) 20 Mg Tablet, 20 MG PO HS, TAB 11/29/14 Isosorbide Mononitrate* (Isosorbide Mononitrate*) 60 Mg Tab.er.24h, 60 MG PO DAILY, TAB 11/29/14 Clopidogrel Bisulfate* (Clopidogrel Bisulfate*) 75 Mg Tablet, 75 MG PO DAILY, TAB 11/29/14 Allergies Allergies: Coded Allergies: No Known Drug Allergy (Verified Allergy, Unknown, 03/04/17) PMhx/Soc History of Surgery: Yes (CABG, Stent) Anesthesia Reaction: No Hx Neurological Disorder: No Hx Respiratory Disorders: No Hx Cardiac Disorders: Yes (NH ) Hx Psychiatric Problems: No Hx Miscellaneous Medical Probl: No Hx Alcohol Use: No Hx Substance Use: No Hx Tobacco Use: No Smoking Status: Never smoker FmHx Family History: No coronary disease Physical Exam Vitals Vital Signs Date Time Temp Pulse Resp B/P Pulse Ox O2 Delivery O2 Flow Rate FiO2 03/04/17 16:38 98.1 59 18 126/60 99 Physical Exam Const: Well-developed, well-nourished Head: Atraumatic, normocephalic Eyes: Normal Conjunctiva, PERRLA, EOMI, normal sclera, no nystagmus ENT: Normal External Ears, Nose and Mouth, moist mucus membranes. Neck: Full range of motion. No meningismus, no lymphadenopathy. Resp: Clear to auscultation bilaterally, no wheezing, rhonchi, rales Cardio: Regular rate and rhythm, no murmurs, S1 S2 present Abd: Soft, mild suprapubic tenderness, non distended. Normal bowel sounds, no guarding or rebound, mild pulsitile abdominal masses Skin: No petechiae or rashes, no ecchymosis , no maculopapular rash Back: No midline or flank tenderness Ext: No cyanosis, or edema, FROM x 4, normal inspection, neurovascularly intact x 4 Neur: Awake and alert, STR 5/5 x 4, sensation intact x 4, no focal findings, cerebellum intact Psych: Normal Mood and Affect Result Diagram: 03/04/17199903/04/171999 Results 24 hrs Laboratory Tests Test 03/04/17 20:00 White Blood Count 9.110^3/ul Red Blood Count 3.3610^6/ul Hemoglobin 10.7g/dl Hematocrit 33.5% Mean Corpuscular Volume 99.7fl Mean Corpuscular Hemoglobin 31.8pg Mean Corpuscular Hemoglobin Concent 31.9g/dl Red Cell Distribution Width 14.2% Platelet Count 25784^3/UL Mean Platelet Volume 10.5fl Neutrophils % 56.7% Lymphocytes % 31.1% Monocytes % 6.9% Eosinophils % 4.2% Basophils % 0.7% Nucleated Red Blood Cells % 0.0/100WBC Neutrophils # 5.210^3/ul Lymphocytes # 2.810^3/ul Monocytes # 0.610^3/ul Eosinophils # 0.410^3/ul Basophils # 0.110^3/ul Nucleated Red Blood Cells # 0.010^3/ul Urine Color YELLOW Urine Clarity CLOUDY Urine pH 6.0 Urine Specific Aneta 1.010 Urine Ketones NEGATIVEmg/dL Urine Nitrite NEGATIVEmg/dL Urine Bilirubin NEGATIVEmg/dL Urine Urobilinogen NEGATIVEmg/dL Urine Leukocyte Esterase 3+Saira/ul Urine Microscopic RBC 61/HPF Urine Microscopic WBC > 182/HPF Urine Bacteria FEW/HPF Urine Hemoglobin 3+mg/dL Urine Glucose NEGATIVEmg/dL Urine Total Protein NEGATIVEmg/dl Sodium Level 145mmol/L Potassium Level 4.2mmol/L Chloride Level 102mmol/L Carbon Dioxide Level 29mmol/L Anion Gap 18 Blood Urea Nitrogen 12mg/dl Creatinine 0.86mg/dl Glucose Level 76mg/dl Calcium Level 9.2mg/dl Current Medications Medications (Trade) Dose Ordered Sig/Tiffany Route PRN Reason Start Time Stop Time Status Last Admin Dose Admin Ceftriaxone Sodium (Rocephin) 1 gm ONCE ONCE IM 03/04/17 22:30 03/04/17 22:31 03/04/17 22:13 Lidocaine (Xylocaine 1% (Mdv) 20 ml) 20 ml STK-MED ONCE .ROUTE 03/04/17 22:08 03/04/17 22:09 DC Procedures/MDM Patient is urinary tract infection. Will treat with Rocephin IM here and Macrobid at home. Urine cultures sent Departure Diagnosis: Primary Impression: Urinary tract infection Urinary tract infection type: acute cystitis Hematuria presence: with hematuria Qualified Code: N30.01 - Acute cystitis with hematuria Condition: Stable Patient Instructions: Understanding Urinary Tract Infections (UTIs) Referrals: NARCISO REN MD (PCP) HARIS KIRKPATRICK DO Mar 04, 2017 22:29
[2017-03-04] MEDS ORDERED: CEFTRIAXONE 1 GM INJ IM ONE (22:30)
[2017-03-04 22:42] VITALS: BP 137/55; PULSE 57; RESP 18; TEMP 97.9
== END 2017-03-04 22:41 | disposition home or self-care (01) ==
LOC: E/R 16:37
DX: N30.01 Acute cystitis with hematuria (principal); Z98.61 Coronary angioplasty status
CPT/HCPCS: 80048; 81001; 85025; 87086; 96372; 99284; J0696